=== PATIENT | female | born 1950 | race Hispanic/Latino ===

== ENCOUNTER 2018-01-07 11:06 | Inpatient (IN) | payer MEDICARE ==
--- NOTE | 2018-01-07 12:16 | C.PDOC ---
History Of Present Illness 67yo female, history of dementia,non-compliant with medications, is brought to ER under state legal guardian, reported she was living in "deplorable" condition. State guardian brought patient in to Er for admission for social evaluation. Otherwise, patient offers no medical complaints. Time Seen by Provider: 01/07/18 11:42 Chief Complaint (Nursing): Medical Clearance History Per: Other (legal state guardian) History/Exam Limitations: no limitations Past Medical History Reviewed: Historical Data, Nursing Documentation, Vital Signs Vital Signs: Last Vital Signs Temp 98.9 F 01/07/18 16:46 Pulse 87 01/07/18 16:46 Resp 16 01/07/18 16:46 BP 100/66 01/07/18 16:46 Pulse Ox 99 01/07/18 16:46 - Medical History PMH: Dementia, Hypercholesterolemia Surgical History: No Surg Hx Family History: States: No Known Family Hx - Social History Hx Alcohol Use: No Hx Substance Use: No - Immunization History Hx Tetanus Toxoid Vaccination: (Unobtainable) Hx Influenza Vaccination: (Unobtainable) Hx Pneumococcal Vaccination: (Unobtainable) Review Of Systems Except As Marked, All Systems Reviewed And Found Negative. Constitutional: Negative for: Fever, Chills Cardiovascular: Negative for: Chest Pain Respiratory: Negative for: Shortness of Breath Gastrointestinal: Negative for: Abdominal Pain Musculoskeletal: Negative for: Back Pain Neurological: Negative for: Headache Physical Exam - Physical Exam Appears: Non-toxic Skin: Normal Color, Warm, Dry Head: Atraumatic, Normacephalic Eye(s): bilateral: Normal Inspection Neck: Normal ROM, Supple Chest: Symmetrical Cardiovascular: Rhythm Regular Respiratory: Normal Breath Sounds Gastrointestinal/Abdominal: Normal Exam, Soft, No Tenderness Back: Normal Inspection Extremity: Normal ROM, No Pedal Edema, No Deformity Neurological/Psych: Oriented x3, Normal Speech, Normal Cognition, Normal Motor, Normal Sensation, Other (appropriate response to questions) ED Course And Treatment - Laboratory Results Result Diagrams: 01/07/18 13:13 01/07/18 13:13 ECG: Interpreted By Me, Viewed By Me ECG Rhythm: Sinus Rhythm Rate From EC (BPM) O2 Sat by Pulse Oximetry: 97 (RA) Pulse Ox Interpretation: Normal Progress Note: CT Head, Labs, CXR, and UA ordered. Patient given Tylenol 975mg PO. Medical Decision Making Medical Decision Making: sent to er accompaneid by social services director, for admission. low grade temp noted. cxr neg, head ct neg, ua, neg, labs neg. accepted to med surg by dr mcmanus Disposition - Disposition Disposition: HOSPITALIZED Disposition Time: 05:00 Condition: STABLE - Clinical Impression Clinical Impression: Failure to thrive, Unsatisfactory living conditions - Scribe Statement The provider has reviewed the documentation as recorded by the Samira Thompson Provider Attestation: All medical record entries made by the Samira were at my direction and personally dictated by me. I have reviewed the chart and agree that the record accurately reflects my personal performance of the history, physical exam, medical decision making, and the department course for this patient. I have also personally directed, reviewed, and agree with the discharge instructions and disposition.
--- NOTE | 2018-01-07 12:55 | CT ---
Date of service: 01/07/2018 PROCEDURE: CT HEAD WITHOUT CONTRAST. HISTORY: trauma COMPARISON: None available. TECHNIQUE: Axial computed tomography images were obtained through the head/brain without intravenous contrast. Radiation dose: Total exam DLP = 848.05 mGy-cm. This CT exam was performed using one or more of the following dose reduction techniques: Automated exposure control, adjustment of the mA and/or kV according to patient size, and/or use of iterative reconstruction technique. FINDINGS: HEMORRHAGE: No intracranial hemorrhage. BRAIN: No mass effect or edema. Mild atrophy is noted. VENTRICLES: Unremarkable. No hydrocephalus. CALVARIUM: Unremarkable. PARANASAL SINUSES: Unremarkable as visualized. No significant inflammatory changes. MASTOID AIR CELLS: Unremarkable as visualized. No inflammatory changes. OTHER FINDINGS: None. IMPRESSION: No evidence of acute intracranial hemorrhage intracranial collection mass effect or midline shift.
[2018-01-07 13:22] LABS: BASO % 0.4 % (0.0-2.0); EOS # 0.1 K/uL (0.0-0.7); EOS % 0.5 % (0.0-4.0); HEMOGLOBIN 13.1 g/dL (11.0-16.0); LYMPH # 2.2 K/uL (1.0-4.3); LYMPH % 19.7 % (20.0-40.0); MEAN CELL VOLUME 90.8 fL (81.0-99.0); MEAN CORPUSCULAR HEMOGLOBIN 31.3 pg (27.0-31.0); MEAN CORPUSCULAR HGB CONC 34.4 g/dL (33.0-37.0); MEAN PLATELET VOLUME 9.2 fL (7.2-11.7); MONO # 0.8 K/uL (0.0-0.8); MONO % 7.7 % (0.0-10.0); NEUT # 7.8 K/uL (1.8-7.0); NEUT % 71.7 % (50.0-75.0); RBC 4.2 Mil/uL (3.80-5.20); RED CELL DISTRIBUTION WIDTH 14.8 % (11.5-14.5); WHITE BLOOD COUNT 10.9 K/uL (4.8-10.8)
[2018-01-07 13:30] LABS: PROTHROMBIN TIME 21.4 SECONDS (9.7-12.2)
[2018-01-07 13:39] LABS: ALB/GLOB RATIO 1.4 (1.0-2.1); ALBUMIN 4.9 g/dL (3.5-5.0); ALT/SGPT 27 U/L (9-52); AST/SGOT 38 U/L (14-36); BLOOD UREA NITROGEN 15 mg/dL (7-17); CALCIUM 9.9 mg/dl (8.6-10.4); GFR AFRICAN-AMERICAN > 60; GFR NON-AFRICAN AMERICAN > 60
--- NOTE | 2018-01-07 14:37 | CP.PCM.HP ---
<London Henley - Last Filed: 01/07/18 17:44> History of Present Illness - History of Present Illness History of Present Illness: PGY-2 H&P for Hospitalist Service CC: Failure to thrive/Unsafe living conditions HPI: Patient is a 67 yo female, with PMHx of dementia, depression/anxiety, hypercholesterolemia, and DVT (listed on chart by PMD who presents to ED for social admission. Patient was brought to [facility] ED by state legal guardian. Slab Inspector/Legal Guardian at bedside, Femi Martinez, and offers further history. Patient found oriented x 3 (though unsure of today's date), and aware of context of admission. Guardian reports patient was living in "deplorable condition" - surrounded by animal feces/garbage. Patient was also only receiving nutrition via Meals on Wheels program once daily. Patient offers no medical complaints only stating "she is hungry." When questioned about dried blood on forehead patient states "she hit her head on the refrigerator two weeks ago." Patient denies syncope, falls at home. She uses rolling walker at home to ambulate. Denies chest pain, SOB, palpitations, abd pain, N/V/D/C, headache. Due to patient mental status review of medical records and patient PMD, Dr. Niño, aided in history gathering. Waiting for confirmatory documentation from Dr. Niño and [facility]. PMHx: Dementia, depression/anxiety, hypercholesterolemia, and ?DVT (~2014, pt denies sequelae) PSHx: Denies Allergies: NKA SHx: Denies alcohol use, smoking history, or illicit drug use Fam Hx: Mother: Heart Disease - at 87, Father: Heart Disease, HTN - [facility] ([phone]) Xarelto 15mg PO BID Paroxetine 20mg PO Qam Multi-vitamin Furosemide 20mg PO Daily Vit C 500mg PO Daily Vit D3 once daily FeoSol 325mg PO Daily Lipitor 20mg QHS Protonix 40mg PO Daily Dr. Jernigan/[place] [phone] Present on Admission - Present on Admission Any Indicators Present on Admission: No History of DVT/PE: No History of Uncontrolled Diabetes: No Review of Systems - Review of Systems Systems not reviewed;Unavailable: Dementia (questionable, patient AAOx3 (unsure of date)) - Constitutional Constitutional: absent: Chills, Fever - EENT Eyes: absent: Change in Vision Ears: absent: Ear Pain Nose/Mouth/Throat: absent: Nasal Congestion, Nasal Discharge Additional comments: Wears glasses - Cardiovascular Cardiovascular: absent: Chest Pain, Dyspnea - Respiratory Respiratory: absent: Cough, Dyspnea - Gastrointestinal Gastrointestinal: absent: Abdominal Pain, Nausea, Vomiting - Genitourinary Genitourinary: absent: Dysuria, Urinary Incontinence - Musculoskeletal Musculoskeletal: absent: Back Pain, Numbness, Tingling - Integumentary Integumentary: New Lesions, Wounds - Neurological Neurological: absent: Tingling, Weakness - Psychiatric Psychiatric: Anxiety, Depression - Endocrine Endocrine: absent: Fatigue, Palpitations Past Patient History - Past Social History Smoking Status: Never Smoked - CARDIAC Hx Hypercholesterolemia: Yes - NEUROLOGICAL Hx Dementia: Yes - PSYCHIATRIC Hx Substance Use: No Meds Allergies/Adverse Reactions: Allergies Allergy/AdvReac Type Severity Reaction Status Date / Time No Known Allergies Allergy Verified 01/07/18 12:12 Physical Exam - Constitutional Appears: Non-toxic, No Acute Distress - Head Exam Head Exam: absent: ATRAUMATIC, NORMAL INSPECTION, NORMOCEPHALIC Additional comments: Pt admits dried blood on head from "hitting head" on refrigerator - Eye Exam Eye Exam: EOMI, Normal appearance. absent: Scleral icterus - ENT Exam ENT Exam: Mucous Membranes Dry - Neck Exam Neck exam: Negative for: Tenderness - Respiratory Exam Respiratory Exam: Clear to Auscultation Bilateral, NORMAL BREATHING PATTERN. absent: Rales, Rhonchi, Wheezes - Cardiovascular Exam Cardiovascular Exam: RRR, +S1, +S2 - GI/Abdominal Exam GI & Abdominal Exam: Normal Bowel Sounds, Soft. absent: Tenderness Additional comments: obese - Extremities Exam Extremities exam: Positive for: pedal edema, pedal pulses present. Negative for : normal inspection Additional comments: Severe hallux valgus deformity - Back Exam Back exam: absent: CVA tenderness (L), CVA tenderness (R) - Neurological Exam Neurological exam: Alert, CN II-XII Intact, Oriented x3 (pt unaware of date, but aware of month/year- aware of context of admission), Reflexes Normal Additional comments: light touch intact throughout severe hallux valgus deformity of bilateral feet leg length discrepancy - left leg longer than right (pt wears special heel lifts ) - Psychiatric Exam Psychiatric exam: Normal Affect, Normal Mood - Skin Skin Exam: Normal Color, Warm Results - Vital Signs Recent Vital Signs: Last Vital Signs Temp 99.9 F H 01/07/18 11:35 Pulse 88 01/07/18 11:35 Resp 18 01/07/18 11:35 BP 116/78 01/07/18 11:35 Pulse Ox 97 01/07/18 12:18 - Labs Result Diagrams: 01/07/18 13:13 01/07/18 13:13 Labs: Laboratory Results - last 24 hr 01/07/18 01/07/18 01/07/18 11:35 13:13 13:13 WBC 10.9 H RBC 4.20 Hgb 13.1 Hct 38.1 MCV 90.8 MCH 31.3 H MCHC 34.4 RDW 14.8 H Plt Count 299 MPV 9.2 Neut % (Auto) 71.7 Lymph % (Auto) 19.7 L Jones % (Auto) 7.7 Eos % (Auto) 0.5 Baso % (Auto) 0.4 Neut # (Auto) 7.8 H Lymph # (Auto) 2.2 Jones # (Auto) 0.8 Eos # (Auto) 0.1 Baso # (Auto) 0.0 PT 21.4 H INR 2.0 APTT 39 H Sodium Potassium Chloride Carbon Dioxide Anion Gap BUN Creatinine Est GFR ( Amer) Est GFR (Non-Af Amer) POC Glucose (mg/dL) 107 Random Glucose Calcium Total Bilirubin AST ALT Alkaline Phosphatase Troponin I Total Protein Albumin Globulin Albumin/Globulin Ratio 01/07/18 13:13 WBC RBC Hgb Hct MCV MCH MCHC RDW Plt Count MPV Neut % (Auto) Lymph % (Auto) Jones % (Auto) Eos % (Auto) Baso % (Auto) Neut # (Auto) Lymph # (Auto) Jones # (Auto) Eos # (Auto) Baso # (Auto) PT INR APTT Sodium 143 Potassium 3.6 Chloride 102 Carbon Dioxide 27 Anion Gap 18 BUN 15 Creatinine 0.6 L Est GFR ( Amer) > 60 Est GFR (Non-Af Amer) > 60 POC Glucose (mg/dL) Random Glucose 100 Calcium 9.9 Total Bilirubin 1.1 AST 38 H ALT 27 Alkaline Phosphatase 97 Troponin I < 0.0120 Total Protein 8.4 H Albumin 4.9 Globulin 3.5 Albumin/Globulin Ratio 1.4 Assessment & Plan - Assessment and Plan (Free Text) Plan: Social Issues/Failure to thrive/Self neglect Observe on med/surg Brought in by legal guardian for detention eval Case Management/SW referral for placement PT/OT eval Fall risk precaution Dr Figueroa, Psych consult - help appreciated - f/u reccs Dementia Pt found oriented x 3, aware of context of admission CT Head (01/07/18): No acute intracranial pathologies CXR (01/07/18): NAD UA (01/07/18): WNL, No leuk esterase/nitrites; 3-5 Hyaline Casts EKG (01/07/18): NSR @ 72 bpm, Normal axis, No acute ST/T wave changes Troponin negative x 1 Perineal Fungal infection Nystatin topical powder BID x 14 days (January 07-) Dehydration Dry nasal/mucosal membranes Hyaline Casts in UA BUN not elevated 1 liter of LR @ 100cc/hr Hypercholesterolemia Pt taking Lipitor 20mg PO HS at home - Substitute Crestor 10mg PO HS (Lipitor Non-formulary) f/u lipid panel, A1C Hx DVT Record request sent to [facility] [place] (pt admission in 2014 or 2015 - pt unsure) Restart home Xarelto 15mg PO BID f/u venous doppler Hx of Afib Listed on PMD chart Not in Afib on EKG at admission Restart home Xarelto 15mg PO BID Chronic CHF (unknown type) Documented by Patient PMD, Dr. Niño Not on BB/JUSTEN as home med f/u ECHO R/o Rhabdomyolosis CPK WNL LR @ 100cc/hr for 1 Liter Elevated AST Slight AST elevation at admission Monitor Anxiety/Depression Ativan 2mg IV once in ED Ativan 1mg IV Q6H PRN for agitation Restart home Paxil 20mg PO Daily Dr Figueroa, Psych consult - help appreciated - f/u reccs Hallux Valgus/Gait dysfunction Pt wearing orthotic shoes with heel lifts PT/OT - uses walker at home Fall risk precaution Elevated INR INR 2.0 on admission f/u repeat PT/INR in AM Hx of anemia Continue home Feosol 325mg PO Daily at home Hgb 13.1 on admission HTN Listed on PMD chart, though pt not on antihypertensive at home If elevated will consider starting antihypertensive based off ECHO, overnight vitals Monitor BP overnight Type Two Diabetes Mellitus Listed on PMD chart, Dr. Niño Pt on no diabetes medications at home GREG Hypoglycemia protocol Accuchecks ACHS f/u A1C DM neuropathy Monitor at this time Vitamin D Deficiency Pt on home Vit D3 1000units daily f/u Vit D level Prophylaxis Protonix 40mg PO Daily Heart healthy diet SCDs C/I due to history of DVT- will be added if Venous Dopplers negative PT/OT eval SW/Case Management consulted for long-term placement Palliative Care consult, Oralia Pt state appointed legal guardian - Femi Martinze Phone number: [phone] Pt may not sign out AMA per conversation London Henley PGY-2 <Chase Young - Last Filed: 01/07/18 19:24> Results - Vital Signs Recent Vital Signs: Last Vital Signs Temp 98.3 F 01/07/18 17:49 Pulse 76 01/07/18 17:49 Resp 20 01/07/18 17:49 BP 119/73 01/07/18 17:49 Pulse Ox 99 01/07/18 17:49 - Labs Result Diagrams: 01/07/18 13:13 01/07/18 13:13 Labs: Laboratory Results - last 24 hr 01/07/18 01/07/18 01/07/18 11:35 13:13 13:13 WBC 10.9 H RBC 4.20 Hgb 13.1 Hct 38.1 MCV 90.8 MCH 31.3 H MCHC 34.4 RDW 14.8 H Plt Count 299 MPV 9.2 Neut % (Auto) 71.7 Lymph % (Auto) 19.7 L Jones % (Auto) 7.7 Eos % (Auto) 0.5 Baso % (Auto) 0.4 Neut # (Auto) 7.8 H Lymph # (Auto) 2.2 Jones # (Auto) 0.8 Eos # (Auto) 0.1 Baso # (Auto) 0.0 PT 21.4 H INR 2.0 APTT 39 H Sodium Potassium Chloride Carbon Dioxide Anion Gap BUN Creatinine Est GFR ( Amer) Est GFR (Non-Af Amer) POC Glucose (mg/dL) 107 Random Glucose Calcium Total Bilirubin AST ALT Alkaline Phosphatase Total Creatine Kinase Troponin I Total Protein Albumin Globulin Albumin/Globulin Ratio Urine Color Urine Clarity Urine pH Ur Specific Winder Urine Protein Urine Glucose (UA) Urine Ketones Urine Blood Urine Nitrate Urine Bilirubin Urine Urobilinogen Ur Leukocyte Esterase Urine WBC (Auto) Urine RBC (Auto) Ur Squamous Epith Cells Urine Bacteria Hyaline Casts 01/07/18 01/07/18 01/07/18 13:13 16:05 16:36 WBC RBC Hgb Hct MCV MCH MCHC RDW Plt Count MPV Neut % (Auto) Lymph % (Auto) Jones % (Auto) Eos % (Auto) Baso % (Auto) Neut # (Auto) Lymph # (Auto) Jones # (Auto) Eos # (Auto) Baso # (Auto) PT INR APTT Sodium 143 Potassium 3.6 Chloride 102 Carbon Dioxide 27 Anion Gap 18 BUN 15 Creatinine 0.6 L Est GFR ( Amer) > 60 Est GFR (Non-Af Amer) > 60 POC Glucose (mg/dL) Random Glucose 100 Calcium 9.9 Total Bilirubin 1.1 AST 38 H ALT 27 Alkaline Phosphatase 97 Total Creatine Kinase 57 Troponin I < 0.0120 Total Protein 8.4 H Albumin 4.9 Globulin 3.5 Albumin/Globulin Ratio 1.4 Urine Color Yellow Urine Clarity Hazy Urine pH 5.0 Ur Specific Winder 1.010 Urine Protein Negative Urine Glucose (UA) Normal Urine Ketones Negative Urine Blood Negative Urine Nitrate Negative Urine Bilirubin Negative Urine Urobilinogen Normal Ur Leukocyte Esterase Neg Urine WBC (Auto) < 1 Urine RBC (Auto) < 1 Ur Squamous Epith Cells < 1 Urine Bacteria Rare Hyaline Casts 3-5 H 01/07/18 18:06 WBC RBC Hgb Hct MCV MCH MCHC RDW Plt Count MPV Neut % (Auto) Lymph % (Auto) Jones % (Auto) Eos % (Auto) Baso % (Auto) Neut # (Auto) Lymph # (Auto) Jones # (Auto) Eos # (Auto) Baso # (Auto) PT INR APTT Sodium Potassium Chloride Carbon Dioxide Anion Gap BUN Creatinine Est GFR ( Amer) Est GFR (Non-Af Amer) POC Glucose (mg/dL) 83 Random Glucose Calcium Total Bilirubin AST ALT Alkaline Phosphatase Total Creatine Kinase Troponin I Total Protein Albumin Globulin Albumin/Globulin Ratio Urine Color Urine Clarity Urine pH Ur Specific Winder Urine Protein Urine Glucose (UA) Urine Ketones Urine Blood Urine Nitrate Urine Bilirubin Urine Urobilinogen Ur Leukocyte Esterase Urine WBC (Auto) Urine RBC (Auto) Ur Squamous Epith Cells Urine Bacteria Hyaline Casts Attending/Attestation - Attestation I have personally seen and examined this patient.: Yes I have fully participated in the care of the patient.: Yes I have reviewed all pertinent clinical information: Yes Notes (Text): 01/07/18 19:23 Patient was seen and examined with Resident Dr. Henley. History, Physical, Assessment and Plan were gone over with Dr. Henley. Chase Young D.O.
--- NOTE | 2018-01-07 15:18 | RAD ---
Date of service: 01/07/2018 PROCEDURE: CHEST RADIOGRAPH, 1 VIEW HISTORY: chest pain COMPARISON: None available. FINDINGS: LUNGS: Clear. PLEURA: No pneumothorax or pleural fluid seen. CARDIOVASCULAR: No radiographic findings to suggest acute or significant cardiovascular disease. OSSEOUS STRUCTURES: No significant abnormalities. VISUALIZED UPPER ABDOMEN: Normal. OTHER FINDINGS: None. IMPRESSION: No active disease.
[2018-01-07 16:19] LABS: SQUAMOUS EPITHIAL < 1 /hpf (0-5); URINE BACTERIA RARE (<OCC); URINE BILIRUBIN NEGATIVE (NEGATIVE); URINE BLOOD NEGATIVE (NEGATIVE); URINE CLARITY Hazy (Clear); URINE COLOR Yellow (YELLOW); URINE GLUCOSE (UA) NORMAL (Normal); URINE LEUKOCYTE ESTERASE NEG Leu/uL (Negative); URINE PROTEIN NEGATIVE (NEGATIVE); URINE UROBILINOGEN NORMAL mg/dL (0.2-1.0)
[2018-01-07] MEDS ORDERED: Lactated Ringer's 1,000 ML IV SCH (16:30)
[2018-01-07] MEDS ORDERED: Dextrose 50% SYRINGE Inj (50 ml) IV PRN (17:21)
[2018-01-07] MEDS ORDERED: Glucagon Recombinant 1 mg Inj IM PRN (17:21)
[2018-01-07 17:51] VITALS: RESP 20
[2018-01-07] MEDS: (Novolin R) Insulin Human Regular 100 units/ml vial SC SCH (21:44)
[2018-01-08] MEDS: (Novolin R) Insulin Human Regular 100 units/ml vial SC SCH ×4 (08:10→21:59)
[2018-01-08 09:04] LABS: ALB/GLOB RATIO 1.4 (1.0-2.1); ALBUMIN 4.3 g/dL (3.5-5.0); ALT/SGPT 23 U/L (9-52); AST/SGOT 33 U/L (14-36); BLOOD UREA NITROGEN 16 mg/dL (7-17); CALCIUM 9.1 mg/dl (8.6-10.4); GFR AFRICAN-AMERICAN > 60; GFR NON-AFRICAN AMERICAN > 60; HDL CHOLESTEROL 61 mg/dL (30-70)
[2018-01-08 09:14] LABS: LDL CHOLESTEROL 123 mg/dL (0-129)
[2018-01-08 09:15] LABS: BASO # 0.1 K/uL (0.0-0.2); BASO % 0.9 % (0.0-2.0); EOS # 0.1 K/uL (0.0-0.7); EOS % 1.4 % (0.0-4.0); HEMOGLOBIN 12.9 g/dL (11.0-16.0); LYMPH # 2.1 K/uL (1.0-4.3); LYMPH % 21.2 % (20.0-40.0); MEAN CELL VOLUME 91.7 fL (81.0-99.0); MEAN CORPUSCULAR HEMOGLOBIN 31.2 pg (27.0-31.0); MEAN PLATELET VOLUME 9.4 fL (7.2-11.7); MONO # 0.6 K/uL (0.0-0.8); MONO % 5.8 % (0.0-10.0); NEUT # 7.2 K/uL (1.8-7.0); NEUT % 70.7 % (50.0-75.0); RBC 4.14 Mil/uL (3.80-5.20); RED CELL DISTRIBUTION WIDTH 14.6 % (11.5-14.5); WHITE BLOOD COUNT 10.1 K/uL (4.8-10.8)
[2018-01-08 10:30] LABS: INR 1.6; PROTHROMBIN TIME 17.8 SECONDS (9.7-12.2)
[2018-01-08] MEDS: Pantoprazole 40 mg EC Tab PO SCH (10:47)
[2018-01-08] MEDS: Multiple Vitamins Tab PO SCH (10:47)
--- NOTE | 2018-01-08 11:07 | CP.PCM.PN ---
<Fani Florian P - Last Filed: 01/08/18 11:06> Subjective - Date & Time of Evaluation Date of Evaluation: 01/08/18 Time of Evaluation: 11:06 Objective - Vital Signs/Intake and Output Vital Signs (last 24 hours): Temp Pulse Resp BP Pulse Ox 98.2 F 80 20 115/75 99 01/08/18 07:24 01/08/18 07:24 01/08/18 07:24 01/08/18 07:24 01/08/18 07:24 - Medications Medications: Current Medications Dextrose (Dextrose 50% Inj) 0 ml IV STAT PRN; Protocol PRN Reason: Hypoglycemia Protocol Dextrose (Glutose 15) 0 gm PO ONCE PRN; Protocol PRN Reason: Hypoglycemia Protocol Ferrous Sulfate (Feosol) 325 mg PO DAILY [facility] Last Admin: 01/08/18 10:47 Dose: 325 mg Glucagon (Glucagen Diagnostic Kit) 0 mg IM STAT PRN; Protocol PRN Reason: Hypoglycemia Protocol Dextrose (Dextrose 5% In Water 1000 Ml) 1,000 mls @ 0 mls/hr IV .Q0M PRN; Protocol; Per Protocol PRN Reason: Hypoglycemia Protocol Insulin Human Regular (Novolin R) 0 unit SC ACHS [facility] PRN Reason: Protocol Last Admin: 01/08/18 08:10 Dose: Not Given Lorazepam (Ativan) 1 mg IVP Q6H PRN PRN Reason: Agitation Multivitamins (Hexavitamin) 1 tab PO DAILY [facility] Last Admin: 01/08/18 10:47 Dose: 1 tab Nystatin (Nystop Topical Powder) 1 applic TOP BID [facility] Stop: 01/21/18 18:01 Last Admin: 01/08/18 10:50 Dose: 1 applic Pantoprazole Sodium (Protonix Ec Tab) 40 mg PO DAILY [facility] Last Admin: 01/08/18 10:47 Dose: 40 mg Paroxetine HCl (Paxil) 20 mg PO DAILY [facility] Last Admin: 01/08/18 10:47 Dose: 20 mg Pneumococcal Polyvalent Vaccine (Pneumovax 23 Vaccine) 0.5 ml IM .ONCE ONE Stop: 01/10/18 22:01 Rivaroxaban (Xarelto) 15 mg PO BID [facility] Last Admin: 01/08/18 10:47 Dose: 15 mg Rosuvastatin Calcium (Crestor) 10 mg PO HS [facility] Last Admin: 01/07/18 21:43 Dose: 10 mg - Labs Labs: 01/08/18 09:10 01/08/18 08:41 PT 17.8 SECONDS (9.7-12.2) H 01/08/18 10:31 INR 1.6 01/08/18 10:31 APTT 35 SECONDS (21-34) H 01/08/18 10:31 <Chase Young - Last Filed: 01/08/18 19:44> Subjective - Date & Time of Evaluation Time of Evaluation: 14:30 - Subjective Subjective: Hospitalist Progress Note Patient was seen and examined at 2:30 PM. Patient is a 67 year old female who was brought into the hospital on 01/07/18 by her [facility] appointed Guardian Femi Martinez ([phone]) after she was found to be living in poor conditions at home (please see full details in HPI of admitting H&P). [facility] Drum Filler Lavinia and Social Workers Carlos Enrique and Arti are in contact with Guardian Femi Martinez whose office is working on obtaining Medicaid for patient and once obtained will decide jail placement for patient. Upon FULL ROS Patient very concerned about her current situation and at time crying as she would like to return to home and wonders why the office of El[employer] can not just hire someone to clean her house and yard so that she can return home. She is also very concerned about her 3 cats, which I confirmed with Ms. Martinez on 01/07/18 at the time of admission, someone was caring for. NO chest pain NO palpitations NO SOB/cough NO dysphagia/odynophagia NO abdominal pain NO n/v/d/c: NO black or bloody stools NO burning/pain with urination NO headache NO lightheadedness/dizziness NO new changes in vision NO new changes in hearing NO paresthesias Physical Exam - Constitutional Appears: Non-toxic, No Acute Distress - Head Exam Head Exam: absent: ATRAUMATIC, NORMAL INSPECTION, NORMOCEPHALIC - Eye Exam Eye Exam: EOMI, Normal appearance. absent: Scleral icterus - ENT Exam ENT Exam: Mucous Membranes Moist - Neck Exam Neck exam: Negative for: Tenderness, Lymphadenopathy - Respiratory Exam Respiratory Exam: Clear to Auscultation Bilateral, NORMAL BREATHING PATTERN. absent: Rales, Rhonchi, Wheezes - Cardiovascular Exam Cardiovascular Exam: RRR, +S1, +S2 - GI/Abdominal Exam GI & Abdominal Exam: Normal Bowel Sounds, Soft. absent: Tenderness Additional comments: Central Obesity - Extremities Exam Extremities exam: Positive for: pedal edema, pedal pulses present. Negative for : normal inspection Additional comments: Severe hallux valgus deformity bilateral feet, Left Leg Longer than the Right Leg (patient has a history of heel lifts in her shoes) - Back Exam Back exam: absent: CVA tenderness (L), CVA tenderness (R) - Neurological Exam Neurological exam: Alert, CN II-XII Intact, Oriented x3 (patient unaware of date , but aware of month and the year and the president; she is also aware of context of why she is here), Reflexes Normal - Psychiatric Exam Psychiatric exam: Normal Affect but very teary throughout exam - Skin Skin Exam: Normal Color, Warm. Fungal Rash noted in the perineum at the time of admission on 01/07/18 Assessment and Plan: 1). Self Neglect [facility] Drum Filler Lavinia and Social Workers Carlos Enrique and Arti are in contact with Guardian Femi Yepezdeonna ([phone]) whose office is working on obtaining Medicaid for patient and once obtained will decide buttermaker helper placement for patient. 2). Possible Dementia NOT currently on any medications 3). Perineal Fungal Rash As noted on exam at the time of admission 01/07/18 Nystatin Powder BID through 01/21/18 4). Dehydration Oral mucosa and nasal turbinates are now moist after LR x 1 liter Bun/Cr are normal 5). Hx HLD Crestor 10 mg PO HS 6). Hx DVT Unspecified laterality Venous Duplex of Bilateral LE shows NO evidence of DVT 7). Hx Atrial Fibrillation NSR upon admitting EKG Xarelto 15 mg PO BID F/U 2D Echocardiogram 8). Questionable Hx of HF F/U 2D Echocardiogram 9). R/O Rhabdomyolysis CK is normal Patient given 1 liter of LR upon admission 10). Elevated AST This has now normalized 11). Hx Anxiety/Depression Ativan 1 mg IV Q6H PRN Paroxetine 20 mg PO 1x/day 12). Hallux Valgus Bilateral Feet/Gait Dysfunction Uses can at home and heel lift in Right shoe F/U PT/OT 13). Elevated INR on admission This is now normal 14). Hx Anemia likely Secondary to Iron Deficiency Ferrous Sulfate 325 mg PO 1x/day Hgb/Hct are now normal 15). Hx HTN Controlled on NO medications 16). Hx DM 2 Currently on NO medications HgBA1C is 5.5 RISS ACHS 17). Hx Diabetic Neuropathy This is questionable as well: currently no medications and patient does not complain of any paresthesias 18). Hx Vitamin D Deficiency Not on any medication Vitamin D level is 31.3 19). Prophylaxis SCDs Patient is on Xarelto PT/OT Heart Healthy 2 gm Na Low Carb Diet Disposition: needs Medicaid set up by the Office of Public Guardian and then buttermaker helper placement. Please note that at the time of admission 01/07/18, office of primary care physician Dr. Niño and Dr. Niño herself were contacted to obtain history on this patient. Unfortunately the office nor Dr. Niño could provide any more information than what we have documented in the H&P on 01/07/18. Chase Young D.O. Objective - Vital Signs/Intake and Output Vital Signs (last 24 hours): Temp Pulse Resp BP Pulse Ox 98.5 F 82 20 100/55 L 95 01/08/18 16:00 01/08/18 16:00 01/08/18 16:00 01/08/18 16:00 01/08/18 16:00 Intake and Output: 01/08/18 01/09/18 18:59 06:59 Intake Total 500 Balance 500 - Medications Medications: Current Medications Dextrose (Dextrose 50% Inj) 0 ml IV STAT PRN; Protocol PRN Reason: Hypoglycemia Protocol Dextrose (Glutose 15) 0 gm PO ONCE PRN; Protocol PRN Reason: Hypoglycemia Protocol Ferrous Sulfate (Feosol) 325 mg PO DAILY [facility] Last Admin: 01/08/18 10:47 Dose: 325 mg Glucagon (Glucagen Diagnostic Kit) 0 mg IM STAT PRN; Protocol PRN Reason: Hypoglycemia Protocol Dextrose (Dextrose 5% In Water 1000 Ml) 1,000 mls @ 0 mls/hr IV .Q0M PRN; Protocol; Per Protocol PRN Reason: Hypoglycemia Protocol Insulin Human Regular (Novolin R) 0 unit SC ACHS [facility] PRN Reason: Protocol Last Admin: 01/08/18 17:44 Dose: Not Given Lorazepam (Ativan) 1 mg IVP Q6H PRN PRN Reason: Agitation Multivitamins (Hexavitamin) 1 tab PO DAILY [facility] Last Admin: 01/08/18 10:47 Dose: 1 tab Nystatin (Nystop Topical Powder) 1 applic TOP BID [facility] Stop: 01/21/18 18:01 Last Admin: 01/08/18 17:47 Dose: 1 applic Pantoprazole Sodium (Protonix Ec Tab) 40 mg PO DAILY [facility] Last Admin: 01/08/18 10:47 Dose: 40 mg Paroxetine HCl (Paxil) 20 mg PO DAILY [facility] Last Admin: 01/08/18 10:47 Dose: 20 mg Pneumococcal Polyvalent Vaccine (Pneumovax 23 Vaccine) 0.5 ml IM .ONCE ONE Stop: 01/10/18 22:01 Rivaroxaban (Xarelto) 15 mg PO BID [facility] Last Admin: 01/08/18 17:46 Dose: 15 mg Rosuvastatin Calcium (Crestor) 10 mg PO HS [facility] Last Admin: 01/07/18 21:43 Dose: 10 mg - Labs Labs: 01/08/18 09:10 01/08/18 08:41 PT 17.8 SECONDS (9.7-12.2) H 01/08/18 10:31 INR 1.6 01/08/18 10:31 APTT 35 SECONDS (21-34) H 01/08/18 10:31
--- NOTE | 2018-01-08 11:38 | PCM.PSYCH ---
Initial Psychiatric Evaluation - Initial Psychiatric Evaluation Type of Admission: Voluntary Legal Status: Capacity Chief Complaint (in patient's own words): I am donna History of Present Illness and Precipitating Events: Ms. Garcia is a 67-year-old woman presenting to the ED for evaluation. Nursing staff reported that patient was found in a disorganized state. She was at home covered in her animal feces with dried blood on her forehead that had been there for 2 weeks after she hit her head on the refrigerator, and the state of the house/lawn itself was in deplorable conditions. Patient was brought to hospital by a state guardian and pt does not know why she is here. She has a PMHx of DVT, stroke 2 years ago, dementia, hypercholestrolemia, high blood pressure, and noncompliant with medication. There is no history of alcohol or substance abuse. Patient MMSE was 26 (was not away it is the 13th and had a little trouble repeating objects back). Patient admits to depression. She said she suffers from panic attacks, the last one occurring yesterday. In speaking with the patient about her living situation she because frustrated, angry and started cursing. She has not had any seizures, no suicidal thoughts, no homicidal thoughts, no hallucinations. She said her mood is okay and her memory is okay. Patient was able to give a detailed work history. Patient did not want to move to the psychiatric unit and she said she wanted to go home. Patient denies syncope, falls at home. She uses rolling walker at home to ambulate. Denies chest pain, SOB, palpitations, abd pain, N/V/ D/C, headache. Current Medications: Active Medications Generic Name Dose Route Start Last Admin Trade Name Nikkoq PRN Reason Stop Dose Admin Dextrose 0 ml 01/07/18 17:21 Dextrose 50% Inj IV STAT PRN Hypoglycemia Protocol Protocol Dextrose 0 gm 01/07/18 17:21 Glutose 15 PO ONCE PRN Hypoglycemia Protocol Protocol Ferrous Sulfate 325 mg 01/08/18 10:00 01/08/18 10:47 Feosol PO 325 mg DAILY [facility] Administration Glucagon 0 mg 01/07/18 17:21 Glucagen Diagnostic Kit IM STAT PRN Hypoglycemia Protocol Protocol Dextrose 1,000 mls @ 0 mls/hr 01/07/18 17:21 Dextrose 5% In Water 1000 Ml IV .Q0M PRN Hypoglycemia Protocol Protocol Per Protocol Insulin Human Regular 0 unit 01/07/18 22:00 01/08/18 08:10 Novolin R SC Not Given ACHS [facility] Protocol Lorazepam 1 mg 01/07/18 17:14 Ativan IVP Q6H PRN Agitation Multivitamins 1 tab 01/08/18 10:00 01/08/18 10:47 Hexavitamin PO 1 tab DAILY [facility] Administration Nystatin 1 applic 01/07/18 18:00 01/08/18 10:50 Nystop Topical Powder TOP 01/21/18 18:01 1 applic BID [facility] Administration Pantoprazole Sodium 40 mg 01/08/18 10:00 01/08/18 10:47 Protonix Ec Tab PO 40 mg DAILY [facility] Administration Paroxetine HCl 20 mg 01/08/18 10:00 01/08/18 10:47 Paxil PO 20 mg DAILY [facility] Administration Pneumococcal Polyvalent Vaccine 0.5 ml 01/10/18 22:00 Pneumovax 23 Vaccine IM 01/10/18 22:01 .ONCE ONE Rivaroxaban 15 mg 01/07/18 18:00 01/08/18 10:47 Xarelto PO 15 mg BID [facility] Administration Rosuvastatin Calcium 10 mg 01/07/18 22:00 01/07/18 21:43 Crestor PO 10 mg HS [facility] Administration Past Psychiatric History - Past Psychiatric History Previous Treatment History: None Pertinent Medical Hx (Current Medical&Sleep Prob, Allergies): Allergies Allergy/AdvReac Type Severity Reaction Status Date / Time No Known Allergies Allergy Verified 01/07/18 12:12 Unobtainable 01/07/18 Review of Systems - Review of Systems All systems: reviewed and no additional remarkable complaints except - Psychiatric Psychiatric: Anxiety, Irritability, Paranoia. absent: Suicidal Ideation Mental Status Examination - Personal Presentation Personal Presentation: Looks stated age - Affect Affect: Constricted, Depressed - Motor Activity Motor Activity: Psychomotor Agitation - Reliability in Providing Information Reliability in Providing Information: Poor, due to alteration in thoughts, Poor , due to cognitve impairment - Speech Speech: Disorganized, Tangential (kept bringing up meals on wheels) - Mood Mood: Anxious - Formal Thought Process Formal Thought Process: Delusions, Paranoia, Loosening of associations - Obsessions/Compulsions Obsessions: Yes (hoarding) Compulsions: None - Cognitive Functions Orientation: Person, Place Sensorium: Alert Attention/Concentration: Attentive Abstract Thinking: [place] Estimate of Intelligence: Average Judgement: Imparied, as evidence by: Poor judgement, Imparied, as evidence by: Lack of insight into illness Memory: Recent intact, as evidence by: 3/3 object recall, Recent impaired, as evidence by: Inability to recall events of the day, Remote intact, as evidenced by: Ability to recall historical events - Risk Risk: Falls, Diminished functioning - Limitations Limitations: Decreased memory, recent DSM 5 DX - DSM 5 DSM 5 Diagnosis: Alzheimer's dementia with behavioral disturbance R/O delirium - Recommended/Plan of Treatment Treatment Recommendations and Plan of Treatment: Alzheimer's dementia with behavioral disturbance R/O delirium Ativan prn monitor s/s - Smoking Cessation Smoking Cessation Initiated: No
--- NOTE | 2018-01-08 11:42 | CP.PCM.CON ---
History of Present Illness - History of Present Illness History of Present Illness: Palliative consult requested by Doctor Henley for goals of care discussion Patient is a 67 yo female admitted from home on the initiative of her legal guardian due to " deplorable condition in the hose. Patient is known to me from the Home visits I made to this patient for [facility] , under Doctor Salinas. At the time of visits I found patent in very poor hygiene in the house, with layers and layers of animal feces on the floor. The odor in the house was so strong making breathing almost impossible. Patient did not seem to be aware of condition as it was" normal to her". Due to concern about patient's well being I called APS and patient was assigned legal guardian. Patient is admitted for 911 emergency services dispatcher evaluation. PMH: Dementia, DM, HTN, Soc. Hx: single, never , denies family members, owns the house and has one tenant on first floor, tenants helps patient occasionally with groceries, patient receives " Meals on wheels", patient does not leave house at all, she uses WC and rolling walker at home , uses ortho shoes Patient has three cats. One dog few weeks ago, as per patient. Patient is not sure what happened to the body. She reports placing body in the plastic bag and giving it to her tenant. Fam Hx: denied by patient Review of Systems - Constitutional Constitutional: Weakness - EENT Eyes: absent: As Per HPI, Blind Spots, Blurred Vision, Change in Vision, Decreased Night Vision, Diplopia, Discharge, Dry Eye, Exophthalmos, Floaters, Irritation, Itchy Eyes, Loss of Peripheral Vision, Pain, Photophobia, Requires Corrective Lenses, Sees Flashes, Spots in Vision, Tunnel Vision, Other Visual Disturbances, Loss of Vision, Other Ears: absent: As Per HPI, Decreased Hearing, Ear Discharge, Ear Pain, Tinnitus, Abnormal Hearing, Disequilibrium, Dizziness, Other Nose/Mouth/Throat: absent: As Per HPI, Epistaxis, Nasal Congestion, Nasal Discharge, Nasal Obstruction, Nasal Trauma, Nose Pain, Post Nasal Drip, Sinus Pain, Sinus Pressure, Bleeding Gums, Change in Voice, Dental Pain, Dry Mouth, Dysphagia, Halitosis, Hoarsness, Lip Swelling, Mouth Lesions, Mouth Pain, Odynophagia, Sore Throat, Throat Swelling, Tongue Swelling, Facial Pain, Neck Pain, Neck Mass, Other - Breasts Breasts: absent: As Per HPI, Change in Shape, Mass, Pain, Nipple Discharge, Nipple Inversion, Skin Changes, Swelling, Other - Cardiovascular Cardiovascular: Pedal Edema - Respiratory Respiratory: absent: As Per HPI, Cough, Dyspnea, Hemoptysis, Dyspnea on Exertion , Wheezing, Snoring, Stridor, Pain on Inspiration, Chest Congestion, Excessive Mucous Production, Change in Mucous Color, Pain with Coughing, Other - Gastrointestinal Gastrointestinal: absent: As Per HPI, Abdominal Pain, Belching, Bloating, Change in Bowel Habits, Change in Stool Character, Coffee Ground Emesis, Constipation, Cramping, Diarrhea, Dyspepsia, Dysphagia, Early Satiety, Excessive Flatus, Fecal Incontinence, Heartburn, Hematemesis, Hematochezia, Loose Stools, Melena, Nausea, Odynophagia, Temesmus, Vomiting, Other - Genitourinary Genitourinary: absent: As Per HPI, Change in Urinary Stream, Difficulty Urinating, Dysuria, Flank Pain, Hematuria, Pyuria, Nocturia, Urinary Incontinence, Urinary Frequency, Urinary Hesitance, Urinary Urgency, Voiding Freq/Small Amts, Freq UTI, Hx Renal/Bladder Calculi, Hx /Renal Surgery, Bladder Distension, Other - Reproductive: Female Reproductive:Female: Post Menopausal - Menstruation Menstruation: Post Menopausal - Musculoskeletal Musculoskeletal: Deformity, Limited Range of Motion, Loss of Height - Integumentary Integumentary: Unusual Bruising - Neurological Neurological: Abnormal Gait, Behavioral Changes - Psychiatric Psychiatric: Anxiety, Mood Swings - Endocrine Endocrine: absent: As Per HPI, Change in Body Appearance, Change in Libido, Cold Intolorance, Deepening of Voice, Excessive Sweating, Fatigue, Flushing, Heat Intolorance, Increase in Ring/Shoe/Hat Size, Palpitations, Polydipsia, Polyphagia, Polyuria, Other - Hematologic/Lymphatic Hematologic: Easy Bleeding Past Patient History - Past Medical History & Family History Past Medical History?: Yes - Past Social History Smoking Status: Never Smoked - CARDIAC Hx Hypercholesterolemia: Yes - NEUROLOGICAL Hx Dementia: Yes - MUSCULOSKELETAL/RHEUMATOLOGICAL Hx Falls: Yes - PSYCHIATRIC Hx Substance Use: No - ANESTHESIA Hx Anesthesia: No Meds Allergies/Adverse Reactions: Allergies Allergy/AdvReac Type Severity Reaction Status Date / Time No Known Allergies Allergy Verified 01/07/18 12:12 - Medications Medications: Current Medications Dextrose (Dextrose 50% Inj) 0 ml IV STAT PRN; Protocol PRN Reason: Hypoglycemia Protocol Dextrose (Glutose 15) 0 gm PO ONCE PRN; Protocol PRN Reason: Hypoglycemia Protocol Ferrous Sulfate (Feosol) 325 mg PO DAILY [facility] Last Admin: 01/08/18 10:47 Dose: 325 mg Glucagon (Glucagen Diagnostic Kit) 0 mg IM STAT PRN; Protocol PRN Reason: Hypoglycemia Protocol Dextrose (Dextrose 5% In Water 1000 Ml) 1,000 mls @ 0 mls/hr IV .Q0M PRN; Protocol; Per Protocol PRN Reason: Hypoglycemia Protocol Insulin Human Regular (Novolin R) 0 unit SC ACHS [place] PRN Reason: Protocol Last Admin: 01/08/18 08:10 Dose: Not Given Lorazepam (Ativan) 1 mg IVP Q6H PRN PRN Reason: Agitation Multivitamins (Hexavitamin) 1 tab PO DAILY [facility] Last Admin: 01/08/18 10:47 Dose: 1 tab Nystatin (Nystop Topical Powder) 1 applic TOP BID [facility] Stop: 01/21/18 18:01 Last Admin: 01/08/18 10:50 Dose: 1 applic Pantoprazole Sodium (Protonix Ec Tab) 40 mg PO DAILY [facility] Last Admin: 01/08/18 10:47 Dose: 40 mg Paroxetine HCl (Paxil) 20 mg PO DAILY [facility] Last Admin: 01/08/18 10:47 Dose: 20 mg Pneumococcal Polyvalent Vaccine (Pneumovax 23 Vaccine) 0.5 ml IM .ONCE ONE Stop: 01/10/18 22:01 Rivaroxaban (Xarelto) 15 mg PO BID [facility] Last Admin: 01/08/18 10:47 Dose: 15 mg Rosuvastatin Calcium (Crestor) 10 mg PO HS [facility] Last Admin: 01/07/18 21:43 Dose: 10 mg Physical Exam - Constitutional Appears: In Acute Distress, Chronically Ill - Head Exam Head Exam: ATRAUMATIC, NORMAL INSPECTION, NORMOCEPHALIC - Eye Exam Eye Exam: EOMI, Normal appearance, PERRL Pupil Exam: NORMAL ACCOMODATION, PERRL - ENT Exam ENT Exam: Mucous Membranes Moist, Normal Exam - Neck Exam Neck exam: Positive for: Normal Inspection - Respiratory Exam Respiratory Exam: Clear to Auscultation Bilateral, NORMAL BREATHING PATTERN - Cardiovascular Exam Cardiovascular Exam: REGULAR RHYTHM - GI/Abdominal Exam GI & Abdominal Exam: Normal Bowel Sounds, Soft - Rectal Exam Rectal Exam: Deferred - Extremities Exam Extremities exam: Positive for: joint swelling, pedal edema Additional comments: foot drop to right leg - Back Exam Back exam: NORMAL INSPECTION - Neurological Exam Neurological exam: Alert, Altered - Psychiatric Exam Psychiatric exam: Anxious - Skin Skin Exam: Dry, Normal Color, Warm Results - Vital Signs Recent Vital Signs: Last Vital Signs Temp 98.2 F 01/08/18 07:24 Pulse 80 01/08/18 07:24 Resp 20 01/08/18 07:24 BP 115/75 01/08/18 07:24 Pulse Ox 99 01/08/18 07:24 - Labs Result Diagrams: 01/08/18 09:10 01/08/18 08:41 Labs: Laboratory Results - last 24 hr 01/07/18 01/07/18 01/07/18 11:35 13:13 13:13 WBC 10.9 H RBC 4.20 Hgb 13.1 Hct 38.1 MCV 90.8 MCH 31.3 H MCHC 34.4 RDW 14.8 H Plt Count 299 MPV 9.2 Neut % (Auto) 71.7 Lymph % (Auto) 19.7 L [place] % (Auto) 7.7 Eos % (Auto) 0.5 Baso % (Auto) 0.4 Neut # (Auto) 7.8 H Lymph # (Auto) 2.2 [place] # (Auto) 0.8 Eos # (Auto) 0.1 Baso # (Auto) 0.0 PT 21.4 H INR 2.0 APTT 39 H Sodium Potassium Chloride Carbon Dioxide Anion Gap BUN Creatinine Est GFR ( Amer) Est GFR (Non-Af Amer) POC Glucose (mg/dL) 107 Random Glucose Hemoglobin A1c Calcium Phosphorus Magnesium Total Bilirubin AST ALT Alkaline Phosphatase Total Creatine Kinase Troponin I Total Protein Albumin Globulin Albumin/Globulin Ratio Triglycerides Cholesterol LDL Cholesterol Direct HDL Cholesterol 25-OH Vitamin D Total Free T4 TSH 3rd Generation Urine Color Urine Clarity Urine pH Ur Specific [place] Urine Protein Urine Glucose (UA) Urine Ketones Urine Blood Urine Nitrate Urine Bilirubin Urine Urobilinogen Ur Leukocyte Esterase Urine WBC (Auto) Urine RBC (Auto) Ur Squamous Epith Cells Urine Bacteria Hyaline Casts 01/07/18 01/07/18 01/07/18 13:13 16:05 16:36 WBC RBC Hgb Hct MCV MCH MCHC RDW Plt Count MPV Neut % (Auto) Lymph % (Auto) [place] % (Auto) Eos % (Auto) Baso % (Auto) Neut # (Auto) Lymph # (Auto) [place] # (Auto) Eos # (Auto) Baso # (Auto) PT INR APTT Sodium 143 Potassium 3.6 Chloride 102 Carbon Dioxide 27 Anion Gap 18 BUN 15 Creatinine 0.6 L Est GFR ( Amer) > 60 Est GFR (Non-Af Amer) > 60 POC Glucose (mg/dL) Random Glucose 100 Hemoglobin A1c Calcium 9.9 Phosphorus Magnesium Total Bilirubin 1.1 AST 38 H ALT 27 Alkaline Phosphatase 97 Total Creatine Kinase 57 Troponin I < 0.0120 Total Protein 8.4 H Albumin 4.9 Globulin 3.5 Albumin/Globulin Ratio 1.4 Triglycerides Cholesterol LDL Cholesterol Direct HDL Cholesterol 25-OH Vitamin D Total Free T4 TSH 3rd Generation Urine Color Yellow Urine Clarity Hazy Urine pH 5.0 Ur Specific [place] 1.010 Urine Protein Negative Urine Glucose (UA) Normal Urine Ketones Negative Urine Blood Negative Urine Nitrate Negative Urine Bilirubin Negative Urine Urobilinogen Normal Ur Leukocyte Esterase Neg Urine WBC (Auto) < 1 Urine RBC (Auto) < 1 Ur Squamous Epith Cells < 1 Urine Bacteria Rare Hyaline Casts 3-5 H 01/07/18 01/07/18 01/08/18 18:06 21:31 07:18 WBC RBC Hgb Hct MCV MCH MCHC RDW Plt Count MPV Neut % (Auto) Lymph % (Auto) [place] % (Auto) Eos % (Auto) Baso % (Auto) Neut # (Auto) Lymph # (Auto) [place] # (Auto) Eos # (Auto) Baso # (Auto) PT INR APTT Sodium Potassium Chloride Carbon Dioxide Anion Gap BUN Creatinine Est GFR ( Amer) Est GFR (Non-Af Amer) POC Glucose (mg/dL) 83 107 Random Glucose Hemoglobin A1c 5.5 Calcium Phosphorus Magnesium Total Bilirubin AST ALT Alkaline Phosphatase Total Creatine Kinase Troponin I Total Protein Albumin Globulin Albumin/Globulin Ratio Triglycerides Cholesterol LDL Cholesterol Direct HDL Cholesterol 25-OH Vitamin D Total Free T4 TSH 3rd Generation Urine Color Urine Clarity Urine pH Ur Specific [place] Urine Protein Urine Glucose (UA) Urine Ketones Urine Blood Urine Nitrate Urine Bilirubin Urine Urobilinogen Ur Leukocyte Esterase Urine WBC (Auto) Urine RBC (Auto) Ur Squamous Epith Cells Urine Bacteria Hyaline Casts 01/08/18 01/08/18 01/08/18 07:18 07:18 07:21 WBC RBC Hgb Hct MCV MCH MCHC RDW Plt Count MPV Neut % (Auto) Lymph % (Auto) [place] % (Auto) Eos % (Auto) Baso % (Auto) Neut # (Auto) Lymph # (Auto) [place] # (Auto) Eos # (Auto) Baso # (Auto) PT INR APTT Sodium Potassium Chloride Carbon Dioxide Anion Gap BUN Creatinine Est GFR ( Amer) Est GFR (Non-Af Amer) POC Glucose (mg/dL) 88 Random Glucose Hemoglobin A1c Calcium Phosphorus Magnesium Total Bilirubin AST ALT Alkaline Phosphatase Total Creatine Kinase Troponin I Total Protein Albumin Globulin Albumin/Globulin Ratio Triglycerides Cholesterol LDL Cholesterol Direct HDL Cholesterol 25-OH Vitamin D Total 31.3 Free T4 1.34 TSH 3rd Generation Urine Color Urine Clarity Urine pH Ur Specific [place] Urine Protein Urine Glucose (UA) Urine Ketones Urine Blood Urine Nitrate Urine Bilirubin Urine Urobilinogen Ur Leukocyte Esterase Urine WBC (Auto) Urine RBC (Auto) Ur Squamous Epith Cells Urine Bacteria Hyaline Casts 01/08/18 01/08/18 01/08/18 08:41 09:10 10:31 WBC 10.1 RBC 4.14 Hgb 12.9 Hct 38.0 MCV 91.7 MCH 31.2 H MCHC 34.0 RDW 14.6 H Plt Count 272 MPV 9.4 Neut % (Auto) 70.7 Lymph % (Auto) 21.2 [place] % (Auto) 5.8 Eos % (Auto) 1.4 Baso % (Auto) 0.9 Neut # (Auto) 7.2 H Lymph # (Auto) 2.1 [place] # (Auto) 0.6 Eos # (Auto) 0.1 Baso # (Auto) 0.1 PT 17.8 H INR 1.6 APTT 35 H Sodium 140 Potassium 3.9 Chloride 101 Carbon Dioxide 26 Anion Gap 16 BUN 16 Creatinine 0.6 L Est GFR ( Amer) > 60 Est GFR (Non-Af Amer) > 60 POC Glucose (mg/dL) Random Glucose 145 H Hemoglobin A1c Calcium 9.1 Phosphorus 3.3 Magnesium 2.0 Total Bilirubin 0.9 AST 33 ALT 23 Alkaline Phosphatase 84 Total Creatine Kinase Troponin I Total Protein 7.4 Albumin 4.3 Globulin 3.1 Albumin/Globulin Ratio 1.4 Triglycerides 65 Cholesterol 228 H LDL Cholesterol Direct 123 HDL Cholesterol 61 25-OH Vitamin D Total Free T4 TSH 3rd Generation 1.94 Urine Color Urine Clarity Urine pH Ur Specific [place] Urine Protein Urine Glucose (UA) Urine Ketones Urine Blood Urine Nitrate Urine Bilirubin Urine Urobilinogen Ur Leukocyte Esterase Urine WBC (Auto) Urine RBC (Auto) Ur Squamous Epith Cells Urine Bacteria Hyaline Casts 01/08/18 11:09 WBC RBC Hgb Hct MCV MCH MCHC RDW Plt Count MPV Neut % (Auto) Lymph % (Auto) [place] % (Auto) Eos % (Auto) Baso % (Auto) Neut # (Auto) Lymph # (Auto) [place] # (Auto) Eos # (Auto) Baso # (Auto) PT INR APTT Sodium Potassium Chloride Carbon Dioxide Anion Gap BUN Creatinine Est GFR ( Amer) Est GFR (Non-Af Amer) POC Glucose (mg/dL) 104 Random Glucose Hemoglobin A1c Calcium Phosphorus Magnesium Total Bilirubin AST ALT Alkaline Phosphatase Total Creatine Kinase Troponin I Total Protein Albumin Globulin Albumin/Globulin Ratio Triglycerides Cholesterol LDL Cholesterol Direct HDL Cholesterol 25-OH Vitamin D Total Free T4 TSH 3rd Generation Urine Color Urine Clarity Urine pH Ur Specific [place] Urine Protein Urine Glucose (UA) Urine Ketones Urine Blood Urine Nitrate Urine Bilirubin Urine Urobilinogen Ur Leukocyte Esterase Urine WBC (Auto) Urine RBC (Auto) Ur Squamous Epith Cells Urine Bacteria Hyaline Casts Assessment & Plan - Assessment and Plan (Free Text) Assessment: Palliative consult FULL Code, there is no Advance Directive on the chart I reviewed medical records, all diagnostic studies, examined and interviewed patient in the chair. Patient is alert, oriented to person and place. Patient did recognize me and knew my name. Patient is very anxious and worried about her cats at home, referring to them as " her babies'. Patient reports having three cats at home. Her dog recently . Patient does not clearly remember how dog's body was disposed. She remembers placing it in plastic bag and giving to her tenant. Patient extensively talked abut her house condition. In her mind, house only needs a little clean up. Patient is anxious to return home. She has her clothes packed up in bag, next to her, ready to leave. Patient cried worried about her cats. She said, she left enough food and water for them. She asking for reassurance . Those cats will be taken care of . and given back to her when she returns home. On physical exam, patient is not acute distress. Breathing is normal, denies cough. HR are regular, VS are WNL. Abdomen soft, states is hungry. Patient feels cold. Patient is not used to air conditioning. She has her sweater over her shoulders. LEs are with mild edema. Patent unable to ambulate without her ortho shoes and is asking for them. Per her, the new pair of shoes were to be delivered . Impression * This is chronically ill patient in no acute distress * Patient has been inside of house for long time and is disconnected from the reality of outside world. She has no TV nor radio in the house. The unhealthy and filthy condition of her house become her norm, therefore patient is not able to understand why she had to be from her home and her cats * Separation anxiety, patient misses her cats * At risk for elopement; has strong desire to return to her cats * Patient is not able to make her own Medical decisions * Unsteady gait due to deformity of feet * Patient feels restricted as she is unable to ambulate without her ortho shoes * Cold intolerance Suggestion * I would refer patient to psychiatrist as I feel hat patient's diagnosis involves more than Dementia ; * Patient needs reassurance that her cats will be taken care of, please involve Logistics Administrator * Continue safety watch * Please call Doctor Niño's office at [phone] and request more information about the status of patient's Ortho shoes * Keep patient away from AC * Contact patient's Legal Guardian for Medical Decisions making * Patient would benefit from shower while is in here, please order one I will fallow patient on as needed basis Thank you for consulting palliative care
--- NOTE | 2018-01-09 00:29 | CP.PCM.PN ---
Subjective - Date & Time of Evaluation Date of Evaluation: 01/08/18 Time of Evaluation: 11:00 - Subjective Subjective: PGY-[address] Jimenez Young. Patient seen and evaluated at bedside. Sitting up in chair, in no acute distress. Patient states she's fine and has no complaints at this time. Denies chest pain, shortness of breath, abdominal pain, nausea, vomiting, fever, chills , headache. Objective - Vital Signs/Intake and Output Vital Signs (last 24 hours): Temp Pulse Resp BP Pulse Ox 98.5 F 82 20 100/55 L 95 01/08/18 16:00 01/08/18 16:00 01/08/18 16:00 01/08/18 16:00 01/08/18 16:00 Intake and Output: 01/08/18 01/09/18 18:59 06:59 Intake Total 500 Balance 500 - Medications Medications: Current Medications Dextrose (Dextrose 50% Inj) 0 ml IV STAT PRN; Protocol PRN Reason: Hypoglycemia Protocol Dextrose (Glutose 15) 0 gm PO ONCE PRN; Protocol PRN Reason: Hypoglycemia Protocol Ferrous Sulfate (Feosol) 325 mg PO DAILY [facility] Last Admin: 01/08/18 10:47 Dose: 325 mg Glucagon (Glucagen Diagnostic Kit) 0 mg IM STAT PRN; Protocol PRN Reason: Hypoglycemia Protocol Dextrose (Dextrose 5% In Water 1000 Ml) 1,000 mls @ 0 mls/hr IV .Q0M PRN; Protocol; Per Protocol PRN Reason: Hypoglycemia Protocol Insulin Human Regular (Novolin R) 0 unit SC ACHS [facility] PRN Reason: Protocol Last Admin: 01/08/18 21:59 Dose: Not Given Lorazepam (Ativan) 1 mg IVP Q6H PRN PRN Reason: Agitation Multivitamins (Hexavitamin) 1 tab PO DAILY [facility] Last Admin: 01/08/18 10:47 Dose: 1 tab Nystatin (Nystop Topical Powder) 1 applic TOP BID [facility] Stop: 01/21/18 18:01 Last Admin: 01/08/18 17:47 Dose: 1 applic Pantoprazole Sodium (Protonix Ec Tab) 40 mg PO DAILY [facility] Last Admin: 01/08/18 10:47 Dose: 40 mg Paroxetine HCl (Paxil) 20 mg PO DAILY [facility] Last Admin: 01/08/18 10:47 Dose: 20 mg Pneumococcal Polyvalent Vaccine (Pneumovax 23 Vaccine) 0.5 ml IM .ONCE ONE Stop: 01/10/18 22:01 Rivaroxaban (Xarelto) 15 mg PO BID [facility] Last Admin: 01/08/18 17:46 Dose: 15 mg Rosuvastatin Calcium (Crestor) 10 mg PO HS [facility] Last Admin: 01/08/18 21:27 Dose: 10 mg - Labs Labs: 01/08/18 09:10 01/08/18 08:41 PT 17.8 SECONDS (9.7-12.2) H 01/08/18 10:31 INR 1.6 01/08/18 10:31 APTT 35 SECONDS (21-34) H 01/08/18 10:31 - Constitutional Appears: No Acute Distress - Head Exam Head Exam: ATRAUMATIC, NORMOCEPHALIC - Eye Exam Eye Exam: EOMI, PERRL - ENT Exam ENT Exam: Mucous Membranes Moist - Respiratory Exam Respiratory Exam: Clear to Ausculation Bilateral. absent: Rales, Rhonchi, Wheezes - Cardiovascular Exam Cardiovascular Exam: REGULAR RHYTHM, +S1, +S2 - GI/Abdominal Exam GI & Abdominal Exam: Soft, Normal Bowel Sounds. absent: Tenderness - Extremities Exam Extremities Exam: Pedal Edema. absent: Tenderness Additional comments: bilateral hallux vaglus deformity. LLE longer than RLE - Neurological Exam Neurological Exam: Alert, Awake, CN II-XII Intact, Oriented x3 Neuro motor strength exam: Left Upper Extremity: 5, Right Upper Extremity: 5, Left Lower Extremity: 5, Right Lower Extremity: 4 - Psychiatric Exam Psychiatric exam: Anxious - Skin Skin Exam: Dry, Intact, Normal Color, Warm Assessment and Plan - Assessment and Plan (Free Text) Plan: Social Issues/Failure to thrive/Self neglect Observe on med/surg Brought in by legal guardian for [place] [facility] eval Case Management/SW referral for placement PT/OT eval Fall risk precaution Dr Figueroa, Psych consult - help appreciated - f/u reccs Dementia Pt found oriented x 3, aware of context of admission CT Head (01/07/18): No acute intracranial pathologies CXR (01/07/18): NAD UA (01/07/18): WNL, No leuk esterase/nitrites; 3-5 Hyaline Casts EKG (01/07/18): NSR @ 72 bpm, Normal axis, No acute ST/T wave changes Troponin negative x 1 Perineal Fungal infection Nystatin topical powder BID x 14 days (January 07-) Dehydration Dry nasal/mucosal membranes Hyaline Casts in UA BUN not elevated 1 liter of LR @ 100cc/hr Hypercholesterolemia Pt taking Lipitor 20mg PO HS at home - Substitute Crestor 10mg PO HS (Lipitor Non-formulary) lipid panel: TG 65, CHL 228, LDL 123, HDL 61 A1C: 5.5 Hx DVT Record request sent to [facility] (pt admission in 2014 or 2015 - pt unsure) Restart home Xarelto 15mg PO BID venous doppler-No evidence of superficial or deep vein thrombosis Hx of Afib Listed on PMD chart Not in Afib on EKG at admission Restart home Xarelto 15mg PO BID Chronic CHF (unknown type) Documented by Patient PMD, Dr. Niño Not on BB/JUSTEN as home med f/u ECHO 01/08: R/o Rhabdomyolosis CPK WNL LR @ 100cc/hr for 1 Liter->completed Anxiety/Depression Ativan 2mg IV once in ED Ativan 1mg IV Q6H PRN for agitation Restart home Paxil 20mg PO Daily Dr Figueroa, Psych consult - help appreciated - f/u reccs Hallux Valgus/Gait dysfunction Pt wearing orthotic shoes with heel lifts PT/OT - uses walker at home Fall risk precaution Elevated AST-normalized Slight AST elevation at admission monitor 01/08 AST: 33 WNL Elevated INR- downtrending INR 2.0 on admission 01/08 repeat: PT 17.8, INR 1.6, aPTT 35 Hx of anemia Continue home Feosol 325mg PO Daily at home Hgb 13.1 on admission HTN Listed on PMD chart, though pt not on antihypertensive at home If elevated will consider starting antihypertensive based off ECHO, overnight vitals Monitor BP overnight-> Patient's bp 110s-100/70-50s. Antihypertensive will not be started at this time, continue to monitor Type Two Diabetes Mellitus Listed on PMD chart, Dr. Nñio Pt on no diabetes medications at home GREG Hypoglycemia protocol Accuchecks ACHS A1C: 5.5 DM neuropathy Monitor at this time Vitamin D Deficiency Pt on home Vit D3 1000units daily Vit D level: 31.3 WNL Prophylaxis Protonix 40mg PO Daily Heart healthy diet SCDs C/I due to history of DVT-> venous dopplers negative, will order SCD PT/OT eval- patient unsteady and at risk for falls, will work with patient 3-5 times/ week for gait training and therapeutic exercise. Dispo recommendation: subacute rehab. SW/Case Management working on long-term placement Palliative Care consult, [place] Pt state appointed legal guardian - Femi Michelle Phone number: [phone] Pt may not sign out AMA per conversation
--- NOTE | 2018-01-09 01:23 | CP.PCM.PN ---
<Landry Lagunas - Last Filed: 01/09/18 08:20> Subjective - Date & Time of Evaluation Date of Evaluation: 01/09/18 Time of Evaluation: 01:22 - Subjective Subjective: PGY-[address] Young service PAtient is seen and examined at bedside. Patient had no acute events overnight. Patient is no acute distress at this time. Patient is lying comfortably in bed. Patient denies Fever, chills, shortness of breath, chest pain, headaches, abdominal pain, nausea, vomiting, diarrhea or constipation. Objective - Vital Signs/Intake and Output Vital Signs (last 24 hours): Temp Pulse Resp BP Pulse Ox 98.6 F 77 20 98/58 L 96 01/08/18 23:31 01/08/18 23:31 01/08/18 23:31 01/08/18 23:31 01/08/18 23:31 Intake and Output: 01/08/18 01/09/18 18:59 06:59 Intake Total 500 Balance 500 - Medications Medications: Current Medications Dextrose (Dextrose 50% Inj) 0 ml IV STAT PRN; Protocol PRN Reason: Hypoglycemia Protocol Dextrose (Glutose 15) 0 gm PO ONCE PRN; Protocol PRN Reason: Hypoglycemia Protocol Ferrous Sulfate (Feosol) 325 mg PO DAILY [facility] Last Admin: 01/08/18 10:47 Dose: 325 mg Glucagon (Glucagen Diagnostic Kit) 0 mg IM STAT PRN; Protocol PRN Reason: Hypoglycemia Protocol Dextrose (Dextrose 5% In Water 1000 Ml) 1,000 mls @ 0 mls/hr IV .Q0M PRN; Protocol; Per Protocol PRN Reason: Hypoglycemia Protocol Insulin Human Regular (Novolin R) 0 unit SC ACHS [facility] PRN Reason: Protocol Last Admin: 01/08/18 21:59 Dose: Not Given Lorazepam (Ativan) 1 mg IVP Q6H PRN PRN Reason: Agitation Multivitamins (Hexavitamin) 1 tab PO DAILY [facility] Last Admin: 01/08/18 10:47 Dose: 1 tab Nystatin (Nystop Topical Powder) 1 applic TOP BID [facility] Stop: 01/21/18 18:01 Last Admin: 01/08/18 17:47 Dose: 1 applic Pantoprazole Sodium (Protonix Ec Tab) 40 mg PO DAILY [facility] Last Admin: 01/08/18 10:47 Dose: 40 mg Paroxetine HCl (Paxil) 20 mg PO DAILY [facility] Last Admin: 01/08/18 10:47 Dose: 20 mg Pneumococcal Polyvalent Vaccine (Pneumovax 23 Vaccine) 0.5 ml IM .ONCE ONE Stop: 01/10/18 22:01 Rivaroxaban (Xarelto) 15 mg PO BID [facility] Last Admin: 01/08/18 17:46 Dose: 15 mg Rosuvastatin Calcium (Crestor) 10 mg PO HS [facility] Last Admin: 01/08/18 21:27 Dose: 10 mg - Labs Labs: 01/08/18 09:10 01/08/18 08:41 PT 17.8 SECONDS (9.7-12.2) H 01/08/18 10:31 INR 1.6 01/08/18 10:31 APTT 35 SECONDS (21-34) H 01/08/18 10:31 - Constitutional Appears: Well, Non-toxic, No Acute Distress - Head Exam Head Exam: ATRAUMATIC, NORMAL INSPECTION, NORMOCEPHALIC - Eye Exam Eye Exam: EOMI, Normal appearance, PERRL - Neck Exam Neck Exam: Full ROM, Normal Inspection - Respiratory Exam Respiratory Exam: Clear to Ausculation Bilateral, NORMAL BREATHING PATTERN. absent: Decreased Breath Sounds, Rales, Rhonchi, Wheezes, Respiratory Distress - Cardiovascular Exam Cardiovascular Exam: REGULAR RHYTHM, +S1, +S2. absent: Clicks, Gallop, Murmur - GI/Abdominal Exam GI & Abdominal Exam: Soft, Normal Bowel Sounds. absent: Distended, Guarding, Tenderness - Extremities Exam Extremities Exam: Normal Inspection - Neurological Exam Neurological Exam: Awake - Psychiatric Exam Psychiatric exam: Normal Affect, Normal Mood - Skin Skin Exam: Dry, Intact Assessment and Plan - Assessment and Plan (Free Text) Plan: Social Issues/Failure to thrive/Self neglect Observe on med/surg Brought in by legal guardian (Femi Martinez) for group home eval Case Management/SW referral for placement - F/U thursday PT/OT eval Fall risk precaution Dr Figueroa, Psych consult - help appreciated - f/u reccs Dementia Pt found oriented x 3, aware of context of admission CT Head (01/07/18): No acute intracranial pathologies CXR (01/07/18): NAD UA (01/07/18): WNL, No leuk esterase/nitrites; 3-5 Hyaline Casts EKG (01/07/18): NSR @ 72 bpm, Normal axis, No acute ST/T wave changes Troponin negative x 1 Perineal Fungal infection Nystatin topical powder BID x 14 days (January 07-) Dehydration Dry nasal/mucosal membranes Hyaline Casts in UA BUN not elevated 1 liter of LR @ 100cc/hr Hypercholesterolemia Pt taking Lipitor 20mg PO HS at home - Substitute Crestor 10mg PO HS (Lipitor Non-formulary) lipid panel: TG 65, CHL 228, LDL 123, HDL 61 01/08 A1C: 5.5 Hx DVT [place] [facility] [place] 2015 - pt unsure) Restart home Xarelto 15mg PO BID venous doppler-No evidence of superficial or deep vein thrombosis Hx of Afib Listed on PMD chart Not in Afib on EKG at admission Restart home Xarelto 15mg PO BID Chronic CHF (unknown type) Documented by Patient PMD, Dr. Niño Not on BB/JUSTEN as home med f/u ECHO, done on 01/08 R/o Rhabdomyolosis CPK WNL LR @ 100cc/hr for 1 Liter->completed Anxiety/Depression Ativan 2mg IV once in ED Ativan 1mg IV Q6H PRN for agitation Restart home Paxil 20mg PO Daily Dr Figueroa, Psych consult - help appreciated - f/u reccs Hallux Valgus/Gait dysfunction Pt wearing orthotic shoes with heel lifts PT/OT - uses walker at home Fall risk precaution Elevated AST-normalized Slight AST elevation at admission monitor 01/08 AST: 33 WNL Elevated INR- downtrending INR 2.0 on admission 01/08 repeat: PT 17.8, INR 1.6, aPTT 35 Hx of anemia Continue home Feosol 325mg PO Daily at home Hgb 13.1 on admission, Hbg 12.9 on 01/08 HTN Listed on PMD chart, though pt not on antihypertensive at home If elevated will consider starting antihypertensive based off ECHO, overnight vitals Monitor BP overnight-> Patient's bp 110s-100/70-50s. Antihypertensive will not be started at this time, continue to monitor Type Two Diabetes Mellitus Listed on PMD chart, Dr. Niño Pt on no diabetes medications at home GREG Hypoglycemia protocol Accuchecks ACHS 01/08 HbA1C: 5.5 DM neuropathy Monitor at this time Vitamin D Deficiency Pt on home Vit D3 1000units daily 01/08 Vit D level: 31.3 WNL Prophylaxis Protonix 40mg PO Daily Heart healthy diet SCDs C/I due to history of DVT-> venous dopplers negative, will order SCD PT/OT eval- patient unsteady and at risk for falls, will work with patient 3-5 times/ week for gait training and therapeutic exercise. Dispo recommendation: subacute rehab. SW/Case Management working on long-term placement Palliative Care consult, [place] Pt state appointed legal guardian - Femi Martinez Phone number: [phone] Pt may not sign out AMA per conversation <Chase Young - Last Filed: 01/09/18 19:11> Objective - Vital Signs/Intake and Output Vital Signs (last 24 hours): Temp Pulse Resp BP Pulse Ox 97.7 F 78 20 99/56 L 98 01/09/18 15:00 01/09/18 15:00 01/09/18 15:00 01/09/18 15:00 01/09/18 15:00 Intake and Output: 01/09/18 01/09/18 06:59 18:59 Intake Total 750 480 Balance 750 480 - Medications Medications: Current Medications Dextrose (Dextrose 50% Inj) 0 ml IV STAT PRN; Protocol PRN Reason: Hypoglycemia Protocol Dextrose (Glutose 15) 0 gm PO ONCE PRN; Protocol PRN Reason: Hypoglycemia Protocol Ferrous Sulfate (Feosol) 325 mg PO DAILY [facility] Last Admin: 01/09/18 10:51 Dose: 325 mg Glucagon (Glucagen Diagnostic Kit) 0 mg IM STAT PRN; Protocol PRN Reason: Hypoglycemia Protocol Dextrose (Dextrose 5% In Water 1000 Ml) 1,000 mls @ 0 mls/hr IV .Q0M PRN; Protocol; Per Protocol PRN Reason: Hypoglycemia Protocol Insulin Human Regular (Novolin R) 0 unit SC [facility] PRN Reason: Protocol Last Admin: 01/09/18 16:35 Dose: Not Given Lorazepam (Ativan) 1 mg IVP Q6H PRN PRN Reason: Agitation Multivitamins (Hexavitamin) 1 tab PO DAILY [facility] Last Admin: 01/09/18 10:51 Dose: 1 tab Nystatin (Nystop Topical Powder) 1 applic TOP BID [facility] Stop: 01/21/18 18:01 Last Admin: 01/09/18 17:27 Dose: Not Given Pantoprazole Sodium (Protonix Ec Tab) 40 mg PO DAILY [facility] Last Admin: 01/09/18 10:51 Dose: 40 mg Paroxetine HCl (Paxil) 20 mg PO DAILY [facility] Last Admin: 01/09/18 10:51 Dose: 20 mg Pneumococcal Polyvalent Vaccine (Pneumovax 23 Vaccine) 0.5 ml IM .ONCE ONE Stop: 01/10/18 22:01 Rivaroxaban (Xarelto) 15 mg PO BID [facility] Last Admin: 01/09/18 17:28 Dose: Not Given Rosuvastatin Calcium (Crestor) 10 mg PO HS [facility] Last Admin: 01/08/18 21:27 Dose: 10 mg - Labs Labs: 01/09/18 07:56 01/09/18 07:56 PT 17.8 SECONDS (9.7-12.2) H 01/08/18 10:31 INR 1.6 01/08/18 10:31 APTT 35 SECONDS (21-34) H 01/08/18 10:31 Attending/Attestation - Attestation I have personally seen and examined this patient.: Yes I have fully participated in the care of the patient.: Yes I have reviewed all pertinent clinical information, including history, physical exam and plan: Yes Notes (Text): 01/09/18 18:59 Hospitalist Progress Note Patient was seen and examined at 4 PM. Patient is a 67 year old female who was brought into the hospital on 01/07/18 by her [facility] appointed Guardian Femi Martinez ([phone]) after she was found to be living in poor conditions at home (please see full details in HPI of admitting H&P). [facility] [employer] Lavinia and Social Workers Carlos Enrique and Arti are in contact with Elly Martinez whose office is working on obtaining Medicaid for patient and once obtained will decide custodial placement for patient. Upon FULL ROS Patient continues to be very concerned about her current situation and at time crying as she would like to return to home and wonders why the office of Elly can not just hire someone to clean her house and yard so that she can return home. She also continues to be very concerned about her 3 cats, which I confirmed with Ms. Martinez on 01/07/18 at the time of admission, someone was caring for. NO chest pain NO palpitations NO SOB/cough NO dysphagia/odynophagia NO abdominal pain NO n/v/d/c: NO black or bloody stools NO burning/pain with urination NO headache NO lightheadedness/dizziness NO new changes in vision NO new changes in hearing NO paresthesias Physical Exam - Constitutional Appears: Non-toxic, No Acute Distress - Head Exam Head Exam: absent: ATRAUMATIC, NORMAL INSPECTION, NORMOCEPHALIC - Eye Exam Eye Exam: EOMI, Normal appearance. absent: Scleral icterus - ENT Exam ENT Exam: Mucous Membranes Moist - Neck Exam Neck exam: Negative for: Tenderness, Lymphadenopathy - Respiratory Exam Respiratory Exam: Clear to Auscultation Bilateral, NORMAL BREATHING PATTERN. absent: Rales, Rhonchi, Wheezes - Cardiovascular Exam Cardiovascular Exam: RRR, +S1, +S2 - GI/Abdominal Exam GI & Abdominal Exam: Normal Bowel Sounds, Soft. absent: Tenderness Additional comments: Central Obesity - Extremities Exam Extremities exam: Positive for: pedal edema, pedal pulses present. Negative for : normal inspection Additional comments: Severe hallux valgus deformity bilateral feet, Left Leg Longer than the Right Leg (patient has a history of heel lifts in her shoes) - Back Exam Back exam: absent: CVA tenderness (L), CVA tenderness (R) - Neurological Exam Neurological exam: Alert, CN II-XII Intact, Oriented x3 (patient unaware of date , but aware of month and the year and the president; she is also aware of context of why she is here), Reflexes Normal - Psychiatric Exam Psychiatric exam: Normal Affect but very teary throughout exam - Skin Skin Exam: Normal Color, Warm. Fungal Rash noted in the perineum at the time of admission on 01/07/18 Assessment and Plan: 1). Self Neglect [facility] [employer] Lavinia and Social Workers Carlos Enrique and Arti are in contact with Guardian Femi Martinez ([phone]) whose office is working on obtaining Medicaid for patient and once obtained will decide intermediate school teacher placement for patient. 2). Possible Dementia NOT currently on any medications 3). Perineal Fungal Rash As noted on exam at the time of admission 01/07/18 Nystatin Powder BID through 01/21/18 4). Dehydration Oral mucosa and nasal turbinates are now moist after LR x 1 liter Bun/Cr are normal 5). Hx HLD Crestor 10 mg PO HS 6). Hx DVT Unspecified laterality Venous Duplex of Bilateral LE shows NO evidence of DVT 7). Hx Atrial Fibrillation NSR upon admitting EKG Xarelto 15 mg PO BID F/U 2D Echocardiogram 8). Questionable Hx of HF F/U 2D Echocardiogram 9). R/O Rhabdomyolysis CK is normal Patient given 1 liter of LR upon admission 10). Elevated AST This has now normalized 11). Hx Anxiety/Depression Ativan 1 mg IV Q6H PRN Paroxetine 20 mg PO 1x/day 12). Hallux Valgus Bilateral Feet/Gait Dysfunction Uses can at home and heel lift in Right shoe F/U PT/OT 13). Elevated INR on admission This is now normal 14). Hx Anemia likely Secondary to Iron Deficiency Ferrous Sulfate 325 mg PO 1x/day Hgb/Hct are now normal 15). Hx HTN Controlled on NO medications 16). Hx DM 2 Currently on NO medications HgBA1C is 5.5 RISS ACHS 17). Hx Diabetic Neuropathy This is questionable as well: currently no medications and patient does not complain of any paresthesias 18). Hx Vitamin D Deficiency Not on any medication Vitamin D level is 31.3 19). Prophylaxis SCDs Patient is on Xarelto PT/OT Heart Healthy 2 gm Na Low Carb Diet Disposition: needs Medicaid set up by the Office of Public Guardian and then intermediate school teacher placement. Please note that at the time of admission 01/07/18, office of primary care physician Dr. Niño and Dr. Niño herself were contacted to obtain history on this patient. Unfortunately the office nor Dr. Niño could provide any more information than what we have documented in the H&P on 01/07/18. Chase Young D.O.
[2018-01-09 08:12] LABS: BASO % 0.6 % (0.0-2.0); EOS # 0.2 K/uL (0.0-0.7); HEMOGLOBIN 12.6 g/dL (11.0-16.0); LYMPH # 1.9 K/uL (1.0-4.3); LYMPH % 23.9 % (20.0-40.0); MEAN CELL VOLUME 92.7 fL (81.0-99.0); MEAN CORPUSCULAR HEMOGLOBIN 31.7 pg (27.0-31.0); MEAN CORPUSCULAR HGB CONC 34.2 g/dL (33.0-37.0); MEAN PLATELET VOLUME 9.5 fL (7.2-11.7); MONO # 0.7 K/uL (0.0-0.8); MONO % 8.7 % (0.0-10.0); NEUT # 5.1 K/uL (1.8-7.0); NEUT % 63.8 % (50.0-75.0); RBC 3.99 Mil/uL (3.80-5.20); RED CELL DISTRIBUTION WIDTH 14.9 % (11.5-14.5)
[2018-01-09] MEDS: (Novolin R) Insulin Human Regular 100 units/ml vial SC SCH ×4 (08:17→21:45)
[2018-01-09 08:29] LABS: ALB/GLOB RATIO 1.6 (1.0-2.1); ALBUMIN 4.5 g/dL (3.5-5.0); ALT/SGPT 25 U/L (9-52); AST/SGOT 33 U/L (14-36); BLOOD UREA NITROGEN 16 mg/dL (7-17); CALCIUM 9.2 mg/dl (8.6-10.4); GFR AFRICAN-AMERICAN > 60; GFR NON-AFRICAN AMERICAN > 60
[2018-01-09] MEDS: Multiple Vitamins Tab PO SCH (10:51)
[2018-01-09] MEDS: Pantoprazole 40 mg EC Tab PO SCH (10:51)
[2018-01-10 07:47] LABS: BASO % 0.5 % (0.0-2.0); EOS # 0.2 K/uL (0.0-0.7); EOS % 2.2 % (0.0-4.0); HEMOGLOBIN 12.4 g/dL (11.0-16.0); LYMPH # 1.9 K/uL (1.0-4.3); MEAN CELL VOLUME 92.2 fL (81.0-99.0); MEAN CORPUSCULAR HEMOGLOBIN 31.3 pg (27.0-31.0); MEAN CORPUSCULAR HGB CONC 33.9 g/dL (33.0-37.0); MEAN PLATELET VOLUME 9.4 fL (7.2-11.7); MONO # 0.8 K/uL (0.0-0.8); MONO % 8.2 % (0.0-10.0); NEUT # 6.5 K/uL (1.8-7.0); NEUT % 69.1 % (50.0-75.0); RBC 3.96 Mil/uL (3.80-5.20); RED CELL DISTRIBUTION WIDTH 14.8 % (11.5-14.5); WHITE BLOOD COUNT 9.4 K/uL (4.8-10.8)
[2018-01-10 08:00] LABS: ALB/GLOB RATIO 1.4 (1.0-2.1); ALBUMIN 4.4 g/dL (3.5-5.0); ALT/SGPT 20 U/L (9-52); AST/SGOT 32 U/L (14-36); BLOOD UREA NITROGEN 23 mg/dL (7-17); CALCIUM 9.3 mg/dl (8.6-10.4); GFR AFRICAN-AMERICAN > 60; GFR NON-AFRICAN AMERICAN > 60
[2018-01-10] MEDS: (Novolin R) Insulin Human Regular 100 units/ml vial SC SCH ×4 (08:01→21:44)
--- NOTE | 2018-01-10 08:21 | CP.PCM.PN ---
<Landry Lagunas - Last Filed: 01/10/18 09:46> Subjective - Date & Time of Evaluation Date of Evaluation: 01/10/18 Time of Evaluation: 08:21 - Subjective Subjective: PGY-[address] Chase Young Service Patient is seen and examined sitting in chair. Patient seems upset during the encounter. Patient says she is worried about her pets and her tenants and demands to leave the hospital to return home. Patient says she will "michael if something happens to her pets". Patient says she has no current health complains. Patient denies Fever, chills, shortness of breath, headache, chest pain, abdominal pain, dysuria, nausea, vomiting, diarrhea or constipation. Objective - Vital Signs/Intake and Output Vital Signs (last 24 hours): Temp Pulse Resp BP Pulse Ox 97.6 F 69 20 103/64 97 01/09/18 23:21 01/09/18 23:21 01/09/18 23:21 01/09/18 23:21 01/09/18 23:21 Intake and Output: 01/10/18 01/10/18 06:59 18:59 Intake Total 480 Balance 480 - Medications Medications: Current Medications Dextrose (Dextrose 50% Inj) 0 ml IV STAT PRN; Protocol PRN Reason: Hypoglycemia Protocol Dextrose (Glutose 15) 0 gm PO ONCE PRN; Protocol PRN Reason: Hypoglycemia Protocol Ferrous Sulfate (Feosol) 325 mg PO DAILY [facility] Last Admin: 01/09/18 10:51 Dose: 325 mg Glucagon (Glucagen Diagnostic Kit) 0 mg IM STAT PRN; Protocol PRN Reason: Hypoglycemia Protocol Dextrose (Dextrose 5% In Water 1000 Ml) 1,000 mls @ 0 mls/hr IV .Q0M PRN; Protocol; Per Protocol PRN Reason: Hypoglycemia Protocol Insulin Human Regular (Novolin R) 0 unit SC ACHS TRACY PRN Reason: Protocol Last Admin: 01/10/18 08:01 Dose: Not Given Lorazepam (Ativan) 1 mg IVP Q6H PRN PRN Reason: Agitation Multivitamins (Hexavitamin) 1 tab PO DAILY [facility] Last Admin: 01/09/18 10:51 Dose: 1 tab Nystatin (Nystop Topical Powder) 1 applic TOP BID [facility] Stop: 01/21/18 18:01 Last Admin: 01/09/18 17:27 Dose: Not Given Pantoprazole Sodium (Protonix Ec Tab) 40 mg PO DAILY [facility] Last Admin: 01/09/18 10:51 Dose: 40 mg Paroxetine HCl (Paxil) 20 mg PO DAILY [facility] Last Admin: 01/09/18 10:51 Dose: 20 mg Pneumococcal Polyvalent Vaccine (Pneumovax 23 Vaccine) 0.5 ml IM .ONCE ONE Stop: 01/10/18 22:01 Rivaroxaban (Xarelto) 15 mg PO BID [facility] Last Admin: 01/09/18 18:00 Dose: 15 mg Rosuvastatin Calcium (Crestor) 10 mg PO HS [facility] Last Admin: 01/09/18 21:43 Dose: 10 mg - Labs Labs: 01/10/18 07:34 01/10/18 07:34 PT 17.8 SECONDS (9.7-12.2) H 01/08/18 10:31 INR 1.6 01/08/18 10:31 APTT 35 SECONDS (21-34) H 01/08/18 10:31 - Constitutional Appears: Non-toxic, No Acute Distress - Head Exam Head Exam: ATRAUMATIC, NORMAL INSPECTION - Eye Exam Eye Exam: EOMI, Normal appearance - Neck Exam Neck Exam: Full ROM, Normal Inspection - Respiratory Exam Respiratory Exam: Clear to Ausculation Bilateral, NORMAL BREATHING PATTERN - Cardiovascular Exam Cardiovascular Exam: Tachycardia, +S1, +S2 - GI/Abdominal Exam GI & Abdominal Exam: Soft - Extremities Exam Extremities Exam: Full ROM, Normal Inspection - Back Exam Back Exam: NORMAL INSPECTION - Neurological Exam Neurological Exam: Awake - Psychiatric Exam Psychiatric exam: Agitated, Anxious - Skin Skin Exam: Dry, Normal Color Assessment and Plan - Assessment and Plan (Free Text) Plan: Social Issues/Failure to thrive/Self neglect Observe on med/surg Brought in by legal guardian (Femi Martinez) for fci eval Case Management/SW referral for placement - F/U thursday, working on getting medicaid and placement for patient PT/OT eval - recommend PT for progressive mobility training, strengthening and balance Fall risk precaution Dr Figueroa, Psych consult - help appreciated - f/u reccs Dementia Pt seems more upset and defiant. Pt found oriented x 3, aware of context of admission CT Head (01/07/18): No acute intracranial pathologies CXR (01/07/18): NAD UA (01/07/18): WNL, No leuk esterase/nitrites; 3-5 Hyaline Casts EKG (01/07/18): NSR @ 72 bpm, Normal axis, No acute ST/T wave changes Troponin negative x 1 Perineal Fungal infection Nystatin topical powder BID x 14 days (January 07-) Dehydration moist nasal mucosa BUN: 16 -> 23 (01/10) Cr 0.6 -> 0.8 (01/10) Hypercholesterolemia Continue Lipitor 10mg PO HS lipid panel: TG 65, CHL 228, LDL 123, HDL 61 01/08 A1C: 5.5 Hx DVT venous doppler-No evidence of superficial or deep vein thrombosis Chronic CHF (unknown type) Documented by Patient PMD, Dr. Niño Not on BB/JUSTEN as home med f/u ECHO, done on 01/08 Anxiety/Depression Patient seemed upset and defiant, worried about her pets and her tenants Ativan 1mg IV Q6H PRN for agitation Paroxetine 20mg Po 1x/daily Hallux Valgus/Gait dysfunction Pt wearing orthotic shoes with heel lifts PT/OT - uses walker at home Fall risk precaution Hx of anemia Continue home Feosol 325mg PO Daily at home Hgb 13.1 on admission, Hbg 12.9 on 01/08 HTN 01/10 - BP 108/74 - stable BP Listed on PMD chart, though pt not on antihypertensive at home If elevated will consider starting antihypertensive based off ECHO Continue to monitor Type Two Diabetes Mellitus Listed on PMD chart, Dr. Niño Pt on no diabetes medications at home GREG Hypoglycemia protocol Accuchecks ACHS 01/08 HbA1C: 5.5 DM neuropathy Monitor at this time Vitamin D Deficiency 01/08 Vit D level: 31.3 WNL Prophylaxis Protonix 40mg PO Daily Heart healthy diet SCDs C/I due to history of DVT-> venous dopplers negative, will order SCD PT/OT eval- patient unsteady and at risk for falls, will work with patient 3-5 times/ week for gait training and therapeutic exercise. Dispo recommendation: subacute rehab. SW/Case Management working on long-term placement Palliative Care consult, [place] Pt state appointed legal guardian - Femi Martinez Phone number: [phone] Pt may not sign out AMA per conversation <Chase Young - Last Filed: 01/10/18 11:55> Objective - Vital Signs/Intake and Output Vital Signs (last 24 hours): Temp Pulse Resp BP Pulse Ox 98.5 F 68 20 108/74 97 01/10/18 08:00 01/10/18 08:00 01/10/18 08:00 01/10/18 08:00 01/10/18 08:00 Intake and Output: 01/10/18 01/10/18 06:59 18:59 Intake Total 480 Balance 480 - Medications Medications: Current Medications Dextrose (Dextrose 50% Inj) 0 ml IV STAT PRN; Protocol PRN Reason: Hypoglycemia Protocol Dextrose (Glutose 15) 0 gm PO ONCE PRN; Protocol PRN Reason: Hypoglycemia Protocol Ferrous Sulfate (Feosol) 325 mg PO DAILY [facility] Last Admin: 01/10/18 09:03 Dose: 325 mg Glucagon (Glucagen Diagnostic Kit) 0 mg IM STAT PRN; Protocol PRN Reason: Hypoglycemia Protocol Dextrose (Dextrose 5% In Water 1000 Ml) 1,000 mls @ 0 mls/hr IV .Q0M PRN; Protocol; Per Protocol PRN Reason: Hypoglycemia Protocol Insulin Human Regular (Novolin R) 0 unit SC ACHS [facility] PRN Reason: Protocol Last Admin: 01/10/18 08:01 Dose: Not Given Lorazepam (Ativan) 1 mg IVP Q6H PRN PRN Reason: Agitation Multivitamins (Hexavitamin) 1 tab PO DAILY [facility] Last Admin: 01/10/18 09:03 Dose: 1 tab Nystatin (Nystop Topical Powder) 1 applic TOP BID [facility] Stop: 01/21/18 18:01 Last Admin: 01/10/18 09:05 Dose: 1 applic Pantoprazole Sodium (Protonix Ec Tab) 40 mg PO DAILY [facility] Last Admin: 01/10/18 09:03 Dose: 40 mg Paroxetine HCl (Paxil) 20 mg PO DAILY [facility] Last Admin: 01/10/18 09:03 Dose: 20 mg Pneumococcal Polyvalent Vaccine (Pneumovax 23 Vaccine) 0.5 ml IM .ONCE ONE Stop: 01/10/18 22:01 Rivaroxaban (Xarelto) 15 mg PO BID [facility] Last Admin: 01/10/18 09:03 Dose: 15 mg Rosuvastatin Calcium (Crestor) 10 mg PO [facility] Last Admin: 01/09/18 21:43 Dose: 10 mg - Labs Labs: 01/10/18 07:34 01/10/18 07:34 PT 17.8 SECONDS (9.7-12.2) H 01/08/18 10:31 INR 1.6 01/08/18 10:31 APTT 35 SECONDS (21-34) H 01/08/18 10:31 Attending/Attestation - Attestation I have personally seen and examined this patient.: Yes I have fully participated in the care of the patient.: Yes I have reviewed all pertinent clinical information, including history, physical exam and plan: Yes Notes (Text): 01/10/18 11:54 Hospitalist Progress Note Patient was seen and examined at 11:45 AM. Patient is a 67 year old female who was brought into the hospital on 01/07/18 by her [facility] appointed Guardian Femi Martinez ([phone]) after she was found to be living in poor conditions at home (please see full details in HPI of admitting H&P). [facility] Track Laminating Machine Tender Lavinia and Social Workers Carlos Enrique and Arti are in contact with Guardian Femi Martinez whose office is working on obtaining Medicaid for patient and once obtained will decide exterminator termite placement for patient. Upon FULL ROS Patient continues to be very concerned about her current situation and at time crying as she would like to return to home and wonders why the office of Guardian can not just hire someone to clean her house and yard so that she can return home. She also continues to be very concerned about her 3 cats, which I confirmed with Ms. Martinez on 01/07/18 at the time of admission, someone was caring for. She is states that she will michael if something happens to her cats NO chest pain NO palpitations NO SOB/cough NO dysphagia/odynophagia NO abdominal pain NO n/v/d/c: NO black or bloody stools NO burning/pain with urination NO headache NO lightheadedness/dizziness NO new changes in vision NO new changes in hearing NO paresthesias Physical Exam - Constitutional Appears: Non-toxic, No Acute Distress - Head Exam Head Exam: absent: ATRAUMATIC, NORMAL INSPECTION, NORMOCEPHALIC - Eye Exam Eye Exam: EOMI, Normal appearance. absent: Scleral icterus - ENT Exam ENT Exam: Mucous Membranes Moist - Neck Exam Neck exam: Negative for: Tenderness, Lymphadenopathy - Respiratory Exam Respiratory Exam: Clear to Auscultation Bilateral, NORMAL BREATHING PATTERN. absent: Rales, Rhonchi, Wheezes - Cardiovascular Exam Cardiovascular Exam: RRR, +S1, +S2 - GI/Abdominal Exam GI & Abdominal Exam: Normal Bowel Sounds, Soft. absent: Tenderness Additional comments: Central Obesity - Extremities Exam Extremities exam: Positive for: pedal edema, pedal pulses present. Negative for : normal inspection Additional comments: Severe hallux valgus deformity bilateral feet, Left Leg Longer than the Right Leg (patient has a history of heel lifts in her shoes) - Back Exam Back exam: absent: CVA tenderness (L), CVA tenderness (R) - Neurological Exam Neurological exam: Alert, CN II-XII Intact, Oriented x3 (patient unaware of date , but aware of month and the year and the president; she is also aware of context of why she is here), Reflexes Normal - Psychiatric Exam Psychiatric exam: Normal Affect but very teary throughout exam - Skin Skin Exam: Normal Color, Warm. Fungal Rash noted in the perineum at the time of admission on 01/07/18 Assessment and Plan: 1). Self Neglect [facility] Track [employer] Machine Tender Lavinia and Social Workers Carlos Enrique and Arti are in contact with Guardian Femi Yepezewamercedes ([phone]) whose office is working on obtaining Medicaid for patient and once obtained will decide exterminator termite placement for patient. 2). Possible Dementia NOT currently on any medications 3). Perineal Fungal Rash As noted on exam at the time of admission 01/07/18 Nystatin Powder BID through 01/21/18 4). Dehydration Oral mucosa and nasal turbinates are now moist after LR x 1 liter Bun/Cr are normal 5). Hx HLD Crestor 10 mg PO HS 6). Hx DVT Unspecified laterality Venous Duplex of Bilateral LE shows NO evidence of DVT 7). Hx Atrial Fibrillation NSR upon admitting EKG Xarelto 15 mg PO BID F/U 2D Echocardiogram 8). Questionable Hx of HF F/U 2D Echocardiogram 9). R/O Rhabdomyolysis CK is normal Patient given 1 liter of LR upon admission 10). Elevated AST This has now normalized 11). Hx Anxiety/Depression Ativan 1 mg IV Q6H PRN Paroxetine 20 mg PO 1x/day 12). Hallux Valgus Bilateral Feet/Gait Dysfunction Uses can at home and heel lift in Right shoe F/U PT/OT 13). Elevated INR on admission This is now normal 14). Hx Anemia likely Secondary to Iron Deficiency Ferrous Sulfate 325 mg PO 1x/day Hgb/Hct are now normal 15). Hx HTN Controlled on NO medications 16). Hx DM 2 Currently on NO medications HgBA1C is 5.5 RISS ACHS 17). Hx Diabetic Neuropathy This is questionable as well: currently no medications and patient does not complain of any paresthesias 18). Hx Vitamin D Deficiency Not on any medication Vitamin D level is 31.3 19). Prophylaxis SCDs Patient is on Xarelto PT/OT Heart Healthy 2 gm Na Low Carb Diet Disposition: needs Medicaid set up by the Office of Public Guardian and then retirement placement. Please note that at the time of admission 01/07/18, office of primary care physician Dr. Niño and Dr. Niño herself were contacted to obtain history on this patient. Unfortunately the office nor Dr. Niño could provide any more information than what we have documented in the H&P on 01/07/18. Chase Young D.O.
[2018-01-10] MEDS: Multiple Vitamins Tab PO SCH (09:03)
[2018-01-10] MEDS: Pantoprazole 40 mg EC Tab PO SCH (09:03)
--- NOTE | 2018-01-10 13:56 | CARD ---
APPROVED REPORT Date of service: 01/08/2018 EXAM: Two-dimensional and M-mode echocardiogram with Doppler and color Doppler. INDICATION Congestive Heart Failure RISK FACTORS Hyperlipidemia 2D DIMENSIONS IVSd0.8 (0.7-1.1cm)LVDd4.2 (3.9-5.9cm) PWd0.7 (0.7-1.1cm)LVDs2.7 (2.5-4.0cm) FS (%) 36.4 %LVEF (%)66.5 (>50%) M-Mode DIMENSIONS Left Atrium (MM)3.67 (2.5-4.0cm)IVSd0.70 (0.7-1.1cm) Aortic Root3.01 (2.2-3.7cm)LVDd5.22 (4.0-5.6cm) Aortic Cusp Exc.1.91 (1.5-2.0cm)PWd0.74 (0.7-1.1cm) FS (%) 29 %LVDs3.69 (2.0-3.8cm) LVEF (%)56 (>50%) Aortic Valve AI P 1/2 [id number] Mitral Valve MV E Eqwlndnp80.1cm/sMV A Vlpgddva56.1cm/sE/A ratio1.0 TDI E/Lateral E'0.0E/Medial E'0.0 Tricuspid Valve TR Peak [id number]/sTR Peak Gr.[id number] <Conclusion> normal size la,lv & ra rv. normal lv wall motion,thickness,systolic & diastolic function with lvef of 65-70%. normal aortic,mitral,tv & pv. trace ai,tr with normal pulmonary systolic pressures of 29 mm of hg. no pericrdial effusion. normal size aortic root & ivc.
--- NOTE | 2018-01-10 16:12 | CARD ---
APPROVED REPORT Date of service: 01/07/2018 EKG Measurement Heart [id number] <Conclusion> Normal sinus rhythm. old anterior mi can not be r/o.
[2018-01-10] MEDS ORDERED: Pneumococcal 23-Valent Vaccine IM ONE (22:00)
[2018-01-11 07:20] LABS: ALB/GLOB RATIO 1.4 (1.0-2.1); ALBUMIN 4.2 g/dL (3.5-5.0); ALT/SGPT 19 U/L (9-52); AST/SGOT 27 U/L (14-36); BLOOD UREA NITROGEN 27 mg/dL (7-17); CALCIUM 9.2 mg/dl (8.6-10.4); GFR AFRICAN-AMERICAN > 60; GFR NON-AFRICAN AMERICAN > 60
--- NOTE | 2018-01-11 07:28 | CP.PCM.PN ---
<Fani Florian P - Last Filed: 01/11/18 22:00> Subjective - Date & Time of Evaluation Date of Evaluation: 01/11/18 Time of Evaluation: 07:28 - Subjective Subjective: PGY-[address] Mcghee. Patient seen and evaluated at bedside. Patient's only complaint is that she would like to go back home. Patient noted to be wearing custom shoes dirty with cat urine and feces. As per nurse, refused to have them cleaned. Denies chest pain, shortness of breath, abdominal pain, nausea, vomiting, fever and chills. Objective - Vital Signs/Intake and Output Vital Signs (last 24 hours): Temp Pulse Resp BP Pulse Ox 98 F 84 20 103/65 97 01/11/18 00:00 01/11/18 00:00 01/11/18 00:00 01/11/18 00:00 01/11/18 00:00 - Medications Medications: Current Medications Dextrose (Dextrose 50% Inj) 0 ml IV STAT PRN; Protocol PRN Reason: Hypoglycemia Protocol Dextrose (Glutose 15) 0 gm PO ONCE PRN; Protocol PRN Reason: Hypoglycemia Protocol Ferrous Sulfate (Feosol) 325 mg PO DAILY [facility] Last Admin: 01/10/18 09:03 Dose: 325 mg Glucagon (Glucagen Diagnostic Kit) 0 mg IM STAT PRN; Protocol PRN Reason: Hypoglycemia Protocol Insulin Human Regular (Novolin R) 0 unit SC ACHS [facility] PRN Reason: Protocol Last Admin: 01/10/18 21:44 Dose: Not Given Lorazepam (Ativan) 1 mg IVP Q6H PRN PRN Reason: Agitation Multivitamins (Hexavitamin) 1 tab PO DAILY [facility] Last Admin: 01/10/18 09:03 Dose: 1 tab Nystatin (Nystop Topical Powder) 1 applic TOP BID [facility] Stop: 01/21/18 18:01 Last Admin: 01/10/18 17:11 Dose: 1 applic Pantoprazole Sodium (Protonix Ec Tab) 40 mg PO DAILY [facility] Last Admin: 01/10/18 09:03 Dose: 40 mg Paroxetine HCl (Paxil) 20 mg PO DAILY [facility] Last Admin: 01/10/18 09:03 Dose: 20 mg Rivaroxaban (Xarelto) 15 mg PO BID [facility] Last Admin: 01/10/18 17:10 Dose: 15 mg Rosuvastatin Calcium (Crestor) 10 mg PO HS [facility] Last Admin: 01/10/18 21:12 Dose: 10 mg - Labs Labs: 01/10/18 07:34 01/11/18 06:52 PT 17.8 SECONDS (9.7-12.2) H 01/08/18 10:31 INR 1.6 01/08/18 10:31 APTT 35 SECONDS (21-34) H 01/08/18 10:31 - Constitutional Appears: No Acute Distress, Other (Patient wearing custom shoes dirty of cat feces) - Head Exam Head Exam: ATRAUMATIC, NORMOCEPHALIC - Eye Exam Eye Exam: EOMI - ENT Exam ENT Exam: Mucous Membranes Moist - Respiratory Exam Respiratory Exam: Clear to Ausculation Bilateral, NORMAL BREATHING PATTERN. absent: Rales, Rhonchi, Wheezes - Cardiovascular Exam Cardiovascular Exam: REGULAR RHYTHM, +S1, +S2 - GI/Abdominal Exam GI & Abdominal Exam: Guarding, Rigid, Soft, Normal Bowel Sounds. absent: Tenderness - Extremities Exam Extremities Exam: Pedal Edema (trace bilaterally). absent: Calf Tenderness - Neurological Exam Neurological Exam: Alert, Awake - Psychiatric Exam Psychiatric exam: Anxious Assessment and Plan - Assessment and Plan (Free Text) Plan: Social Issues/Failure to thrive/Self neglect Brought in by legal guardian for intermediate eval Case Management/SW referral for placement- termite exterminator helper placement pending Medicaid application submitted by her legal gardian PT/OT eval- will work with patient 3-5 times/ week for gait training and therapeutic exercise. Dispo recommendation: subacute rehab. Fall risk precaution Dr Figueroa, Psych consult - help appreciated - f/u recs Dementia Pt found oriented x 3, aware of context of admission CT Head (01/07/18): No acute intracranial pathologies CXR (01/07/18): NAD UA (01/07/18): WNL, No leuk esterase/nitrites; 3-5 Hyaline Casts EKG (01/07/18): NSR @ 72 bpm, Normal axis, No acute ST/T wave changes Troponin negative x 1 Not currently on medication Perineal Fungal infection Nystatin topical powder BID x 14 days (January 07-) Dehydration 1 liter of LR completed-> mucous membranes noted to be moist following IVF Hypercholesterolemia Pt taking Lipitor 20mg PO HS at home - Substitute Crestor 10mg PO HS (Lipitor Non-formulary) lipid panel: TG 65, CHL 228, LDL 123, HDL 61 A1C: 5.5 Hx DVT [place] [facility] [place] - pt unsure[place] Restart home Xarelto 15mg PO BID venous doppler-No evidence of superficial or deep vein thrombosis Hx of Afib Listed on PMD chart Not in Afib on EKG at admission Restart home Xarelto 15mg PO BID Metoprolol Succinate 12.5 PO daily Questionable Hx of Chronic CHF Documented by Patient PMD, Dr. Niño ECHO 01/08: EF 65-70%. Normal systolic and diastolic function (see full report) R/o Rhabdomyolosis CPK WNL LR @ 100cc/hr for 1 Liter-> completed Anxiety/Depression Ativan 2mg IV once in ED Ativan 1mg IV Q6H PRN for agitation Restart home Paxil 20mg PO Daily Dr Figueroa, Psych consult - help appreciated - f/u reccs Hallux Valgus/Gait dysfunction Pt wearing orthotic shoes with heel lifts-> shoes dirty, attempt to clean PT/OT - uses walker at home Fall risk precaution Elevated AST-normalized Slight AST elevation at admission monitor 01/08 AST: 33 WNL Elevated INR- downtrending INR 2.0 on admission 01/08 repeat: PT 17.8, INR 1.6, aPTT 35 Hx of anemia Continue home Feosol 325mg PO Daily at home Hgb 13.1 on admission HTN Listed on PMD chart, though pt not on antihypertensive at home no hypertensive bp's since admission started on Metoprolol Succinate 12.5 for Afib Type Two Diabetes Mellitus Listed on PMD chart, Dr. Niño Pt on no diabetes medications at home GREG Accmarcel ACHS A1C: 5.5 DM neuropathy Pt not on home medications Vitamin D Deficiency Vit D level: 31.3 WNL Prophylaxis Protonix 40mg PO Daily Heart healthy diet venous dopplers negative, SCDs ordered PT/OT eval- patient unsteady and at risk for falls, will work with patient 3-5 times/ week for gait training and therapeutic exercise. Dispo recommendation: subacute rehab. SW/Case Management working on long-term placement pending Medicaid application approval Palliative Care consult, [place] Pt state appointed legal guardian - Femi Martinez Phone number: [phone] Pt may not sign out AMA per conversation Pt noted to have dirty shoes on in the morning. This afternoon, patient agitated and refused to have shoes washed. <Michelle Mcghee V - Last Filed: 01/11/18 22:40> Objective - Vital Signs/Intake and Output Vital Signs (last 24 hours): Temp Pulse Resp BP Pulse Ox 98.1 F 68 20 99/63 L 99 01/11/18 08:14 01/11/18 08:14 01/11/18 08:14 01/11/18 08:14 01/11/18 08:14 Intake and Output: 01/11/18 01/11/18 06:59 18:59 Intake Total 700 Balance 700 - Medications Medications: Current Medications Ferrous Sulfate (Feosol) 325 mg PO DAILY [facility] Last Admin: 01/11/18 11:42 Dose: 325 mg Lorazepam (Ativan) 1 mg IVP Q6H PRN PRN Reason: Agitation Metoprolol Succinate (Toprol Xl) 12.5 mg PO Q24H [facility] Last Admin: 01/11/18 14:55 Dose: Not Given Multivitamins (Hexavitamin) 1 tab PO DAILY [facility] Last Admin: 01/11/18 11:42 Dose: 1 tab Nystatin (Nystop Topical Powder) 1 applic TOP BID [facility] Stop: 01/21/18 18:01 Last Admin: 01/11/18 11:44 Dose: 1 applic Pantoprazole Sodium (Protonix Ec Tab) 40 mg PO DAILY [facility] Last Admin: 01/11/18 11:42 Dose: 40 mg Paroxetine HCl (Paxil) 20 mg PO DAILY [facility] Last Admin: 01/11/18 11:42 Dose: 20 mg Rivaroxaban (Xarelto) 15 mg PO BID [facility] Last Admin: 01/11/18 11:42 Dose: 15 mg Rosuvastatin Calcium (Crestor) 10 mg PO HS [facility] Last Admin: 01/10/18 21:12 Dose: 10 mg - Labs Labs: 01/11/18 06:52 01/11/18 06:52 PT 17.8 SECONDS (9.7-12.2) H 01/08/18 10:31 INR 1.6 01/08/18 10:31 APTT 35 SECONDS (21-34) H 01/08/18 10:31 Attending/Attestation - Attestation I have personally seen and examined this patient.: Yes I have fully participated in the care of the patient.: Yes I have reviewed all pertinent clinical information, including history, physical exam and plan: Yes Notes (Text): ppatient seen, examined, and case discussed with medical device. Patient seen this morning speaking with occupational therapist. Patient has noted he eaten her breakfast seen at bedside. Patient is washed and cleaned. Patient's shoes noted are noted of dirty fecal matter we will check with nursing if they can be washed.Patient came in on admission covered in fecal matter. If not we will check with case management and her PMD to see if they can be replaced since they are quite filthy. We will need to follow-up with case management social work in terms of discharge planning. We are awaiting finalized psychiatry note for any recommendations. We'll continue to follow. Please note patient cannot AMA. 1). Self Neglect Assessment and Plan * Palliative care on board help appreciated * Patient has been inside of house for long time and is disconnected from the reality of outside world. She has no TV nor radio in the house. The unhealthy and filthy condition of her house become her norm, therefore patient is not able to understand why she had to be from her home and her cats * Separation anxiety, patient misses her cats * At risk for elopement; has strong desire to return to her cats * Patient is not able to make her own Medical decisions * Unsteady gait due to deformity of feet * Patient feels restricted as she is unable to ambulate without her ortho shoes * Cold intolerance * Psychiatry on board help appreciated * Psychiatry in draft awaiting recommendations * [facility] Net Developer Software Engineer C Lavinia and Social Workers Carlos Enrique and Arti are in contact with Guardian Femi Martinez ([phone]) whose office is working on obtaining Medicaid for patient and once obtained will decide [facility] placement for patient. Anneliese Hughes as of today patient referred to [facility] as requested state appointed a guardian. 2). Possible Dementia * NOT currently on any medications 3). Perineal Fungal Rash * As noted on exam at the time of admission 01/07/18 * Nystatin Powder BID through 01/21/18 * improving 4). Dehydration * Oral mucosa and nasal turbinates are now moist after LR x 1 liter * Bun/Cr are normal 5). Hx HLD * Crestor 10 mg PO HS 6). Hx DVT * Unspecified laterality * Venous Duplex of Bilateral LE shows NO evidence of DVT 7). Hx Atrial Fibrillation * NSR upon admitting EKG * Xarelto 15 mg PO BID * Toprol-XL 12.5 mg by mouth daily * 2D Echocardiogram: normal size L FLORIDALMA in RA RV,, nor normal LV wall motion thickness systolic diastolic function with ejection fraction 6570% normal aortic mitral LV and PV normal pressures and normal size 8).no CHF noted based on recent echo 9). R/O Rhabdomyolysis-->resolved * CK is normal * Patient given 1 liter of LR upon admission 10). Elevated AST-->esolved * This has now normalized 11). Hx Anxiety/Depression * Ativan 1 mg IV Q6H PRN * Paroxetine 20 mg PO 1x/day 12). Hallux Valgus Bilateral Feet/Gait Dysfunction * Uses can at home and heel lift in Right shoe * F/U PT/OT 13). Elevated INR on admission This is now normal 14). Hx Anemia likely Secondary to Iron Deficiency * Ferrous Sulfate 325 mg PO 1x/day * Hgb/Hct are now normal 15). Hx HTN * controlled * on low-dose beta beverley in light of history of atrial fibrillation 16). Hx DM 2 * Currently on NO medications * HgBA1C is 5.5 * RISS ACHS 17). Hx Diabetic Neuropathy * This is questionable as well: currently no medications and patient does not complain of any paresthesias 18). Hx Vitamin D Deficiency * Not on any medication * Vitamin D level is 31.3 19). Prophylaxis * SCDs * Patient is on Xarelto * PT/OT * Heart Healthy 2 gm Na Low Carb Diet * I did put in a physician communication note to see whether not patient's comp specialized shoes can be washed. They do smell like feces and she was found in feces for quite some time at time of admission. Disposition: needs Medicaid set up by the Office of Public Guardian and then [facility] placement.patient cannot leave AGAINST MEDICAL ADVICE.
[2018-01-11 07:31] LABS: BASO % 0.5 % (0.0-2.0); EOS # 0.3 K/uL (0.0-0.7); HEMOGLOBIN 12.2 g/dL (11.0-16.0); LYMPH # 2.3 K/uL (1.0-4.3); LYMPH % 23.7 % (20.0-40.0); MEAN CELL VOLUME 91.2 fL (81.0-99.0); MEAN CORPUSCULAR HEMOGLOBIN 31.5 pg (27.0-31.0); MEAN CORPUSCULAR HGB CONC 34.6 g/dL (33.0-37.0); MEAN PLATELET VOLUME 9.4 fL (7.2-11.7); MONO # 0.7 K/uL (0.0-0.8); MONO % 7.6 % (0.0-10.0); NEUT # 6.3 K/uL (1.8-7.0); NEUT % 65.2 % (50.0-75.0); RBC 3.87 Mil/uL (3.80-5.20); RED CELL DISTRIBUTION WIDTH 14.6 % (11.5-14.5); WHITE BLOOD COUNT 9.6 K/uL (4.8-10.8)
[2018-01-11] MEDS: (Novolin R) Insulin Human Regular 100 units/ml vial SC SCH (08:41)
[2018-01-11] MEDS: Multiple Vitamins Tab PO SCH (11:42)
[2018-01-11] MEDS: Pantoprazole 40 mg EC Tab PO SCH (11:42)
--- NOTE | 2018-01-11 13:08 | VASCLAB ---
Date of service: 01/08/2018 PROCEDURE: Lower Extremity Venous Duplex Exam. HISTORY: Pedal edema PRIORS: None. TECHNIQUE: Bilateral common femoral, femoral, popliteal and posterior tibial, peroneal and great saphenous veins were evaluated. Flow was assessed with color Doppler, compressibility, assessment of phasic flow and augmentation response. Report prepared by Christofer Gregory, BS, RVT FINDINGS: RIGHT: 1. Common Femoral Vein: 1.1. Compressibility - Fully compressible: Thrombus - None : Flow - Phasic: Augmentation -Normal: Reflux - None. 2. Femoral Vein: 2.1. Compressibility - Fully compressible: Thrombus - None : Flow - Phasic: Augmentation -Normal: Reflux - None. 3. Popliteal Vein: 3.1. Compressibility - Fully compressible: Thrombus - None : Flow - Phasic: Augmentation -Normal: Reflux - None. 4. Posterior Tibial Vein: 4.1. Compressibility - Fully compressible: Thrombus - None: Flow - Phasic: Augmentation -Normal: Reflux - None. 5. Peroneal Vein: 5.1. Compressibility - Fully compressible: Thrombus - None: Flow - Phasic: Augmentation -Normal: Reflux - None. 6. Great Saphenous Vein: 6.1. Compressibility - Fully compressible: Thrombus - None: Flow - Phasic: Augmentation - Normal: Reflux - None. LEFT: 1. Common Femoral Vein: 1.1. Compressibility - Fully compressible: Thrombus - None: Flow - Phasic: Augmentation -Normal: Reflux - None. 2. Femoral Vein: 2.1. Compressibility - Fully compressible: Thrombus - None: Flow - Phasic: Augmentation -Normal: Reflux - None. 3. Popliteal Vein: 3.1. Compressibility - Fully compressible: Thrombus - None : Flow - Phasic: Augmentation -Normal: Reflux - None. 4. Posterior Tibial Vein: 4.1. Compressibility - Fully compressible: Thrombus - None: Flow - Phasic: Augmentation -Normal: Reflux - None. 5. Peroneal Vein: 5.1. Compressibility - Fully compressible: Thrombus - None: Flow - Phasic: Augmentation -Normal: Reflux - None. 6. Great Saphenous Vein: 6.1. Compressibility - Fully compressible: Thrombus - None: Flow - Phasic: Augmentation - Normal: Reflux - None. OTHER FINDINGS: Right: None significant. Left: None significant. IMPRESSION: Right: No evidence of deep or superficial vein thrombosis of the right lower extremity. Normal valve function noted of the right side. Left: No evidence of deep or superficial vein thrombosis of the left lower extremity. Normal valve function noted of the left side.
[2018-01-11] MEDS: Metoprolol Succinate 12.5 mg XL Tab PO SCH (14:55)
--- NOTE | 2018-01-12 06:27 | CP.PCM.PN ---
<Fani Florian P - Last Filed: 01/13/18 00:43> Subjective - Date & Time of Evaluation Date of Evaluation: 01/12/18 Time of Evaluation: 06:21 - Subjective Subjective: PGY-[address] Mcghee. Patient seen and evaluated at bedside. Patient sitting in her chair with feet elevated, in no acute distress. Denies chest pain, shortness of breath, abdominal pain, nausea, vomiting, fever and chills. As per nurse, patient was agitated yesterday evening and was given Ativan 1mg PO, which improved her agitation. Patient noted to be wearing clean socks. Clinical partner states she cleaned patient's feet last night and took her shoes to be cleaned as well. Objective - Vital Signs/Intake and Output Vital Signs (last 24 hours): Temp Pulse Resp BP Pulse Ox 98.1 F 71 20 105/68 97 01/12/18 00:00 01/12/18 00:00 01/12/18 00:00 01/12/18 00:00 01/12/18 00:00 Intake and Output: 01/11/18 01/12/18 18:59 06:59 Intake Total 700 Balance 700 - Medications Medications: Current Medications Ferrous Sulfate (Feosol) 325 mg PO DAILY [facility] Last Admin: 01/11/18 11:42 Dose: 325 mg Lorazepam (Ativan) 1 mg IVP Q6H PRN PRN Reason: Agitation Metoprolol Succinate (Toprol Xl) 12.5 mg PO Q24H [facility] Last Admin: 01/11/18 14:55 Dose: Not Given Multivitamins (Hexavitamin) 1 tab PO DAILY [facility] Last Admin: 01/11/18 11:42 Dose: 1 tab Nystatin (Nystop Topical Powder) 1 applic TOP BID [facility] Stop: 01/21/18 18:01 Last Admin: 01/11/18 18:46 Dose: 1 applic Pantoprazole Sodium (Protonix Ec Tab) 40 mg PO DAILY [facility] Last Admin: 01/11/18 11:42 Dose: 40 mg Paroxetine HCl (Paxil) 20 mg PO DAILY [facility] Last Admin: 01/11/18 11:42 Dose: 20 mg Rivaroxaban (Xarelto) 15 mg PO BID [facility] Last Admin: 01/11/18 18:46 Dose: 15 mg Rosuvastatin Calcium (Crestor) 10 mg PO [facility] Last Admin: 01/11/18 21:40 Dose: 10 mg - Labs Labs: 01/11/18 06:52 01/11/18 06:52 PT 17.8 SECONDS (9.7-12.2) H 01/08/18 10:31 INR 1.6 01/08/18 10:31 APTT 35 SECONDS (21-34) H 01/08/18 10:31 - Additional Findings Additional findings: - Constitutional Appears: No Acute Distress - Head Exam Head Exam: ATRAUMATIC, NORMOCEPHALIC - Eye Exam Eye Exam: EOMI - ENT Exam ENT Exam: Mucous Membranes Moist - Respiratory Exam Respiratory Exam: Clear to Ausculation Bilateral, NORMAL BREATHING PATTERN. absent: Rales, Rhonchi, Wheezes - Cardiovascular Exam Cardiovascular Exam: REGULAR RHYTHM, +S1, +S2 - GI/Abdominal Exam GI & Abdominal Exam: Guarding, Rigid, Soft, Normal Bowel Sounds. absent: Tenderness - Extremities Exam Extremities Exam: Pedal Edema (bilaterally). absent: Calf Tenderness. Patient wearing clean socks. L leg noted to be longer than R. - Neurological Exam Neurological Exam: Alert, Awake Assessment and Plan - Assessment and Plan (Free Text) Plan: Social Issues/Failure to thrive/Self neglect Brought in by legal guardian for fdc eval Case Management/SW referral for placement- terminal operations supervisor placement pending Medicaid application submitted by her legal gardian PT/OT eval- will work with patient 3-5 times/ week for gait training and therapeutic exercise. Dispo recommendation: subacute rehab. Fall risk precaution Dr iFgueroa, Psych consult - help appreciated - f/u recs Dementia Pt found oriented x 3, aware of context of admission CT Head (01/07/18): No acute intracranial pathologies CXR (01/07/18): NAD UA (01/07/18): WNL, No leuk esterase/nitrites; 3-5 Hyaline Casts EKG (01/07/18): NSR @ 72 bpm, Normal axis, No acute ST/T wave changes Troponin negative x 1 Not currently on medication Perineal Fungal infection Nystatin topical powder BID x 14 days (January 07-) Dehydration 1 liter of LR completed-> mucous membranes noted to be moist following IVF Hypercholesterolemia Pt taking Lipitor 20mg PO HS at home - Substitute Crestor 10mg PO HS (Lipitor Non-formulary) lipid panel: TG 65, CHL 228, LDL 123, HDL 61 A1C: 5.5 Hx DVT Record request sent to [facility] [place] (pt admission in 2014 or 2015 - pt unsure) Restart home Xarelto 15mg PO BID venous doppler-No evidence of superficial or deep vein thrombosis Hx of Afib Listed on PMD chart Not in Afib on EKG at admission Restart home Xarelto 15mg PO BID Metoprolol Succinate 12.5 PO daily Questionable Hx of Chronic CHF Documented by Patient PMD, Dr. Niño ECHO 01/08: EF 65-70%. Normal systolic and diastolic function (see full report) R/o Rhabdomyolosis CPK WNL LR @ 100cc/hr for 1 Liter-> completed Anxiety/Depression Ativan 2mg IV once in ED Ativan 1mg IV Q6H PRN for agitation Restart home Paxil 20mg PO Daily Dr Figueroa, Psych consult - help appreciated - f/u reccs Hallux Valgus/Gait dysfunction Pt wearing orthotic shoes with heel lifts-> shoes dirty, attempt to clean PT/OT - uses walker at home Fall risk precaution Elevated AST-normalized Slight AST elevation at admission monitor 01/08 AST: 33 WNL Elevated INR- downtrending INR 2.0 on admission 01/08 repeat: PT 17.8, INR 1.6, aPTT 35 Hx of anemia Continue home Feosol 325mg PO Daily at home Hgb 13.1 on admission HTN Listed on PMD chart, though pt not on antihypertensive at home no hypertensive bp's since admission started on Metoprolol Succinate 12.5 for Afib Type Two Diabetes Mellitus Listed on PMD chart, Dr. Niño Pt on no diabetes medications at home GREG Montoya ACHS A1C: 5.5 DM neuropathy Pt not on home medications Vitamin D Deficiency Vit D level: 31.3 WNL Prophylaxis Protonix 40mg PO Daily Heart healthy diet venous dopplers negative, SCDs ordered PT/OT eval- patient unsteady and at risk for falls, will work with patient 3-5 times/ week for gait training and therapeutic exercise. Dispo recommendation: subacute rehab. SW/Case Management working on long-term placement pending Medicaid application approval Palliative Care consult, Oralia Pt state appointed legal guardian - Femi Michelle Phone number: [phone] Pt may not sign out AMA per conversation Pt wearing clean socks today. Called [employer] to have pt's new custom shoes sent to hospital- was told it is against policy to ship to hospitals. Will attempt to call again. Awaiting psych recs will contact again tomorrow. <Michelle Mcghee V - Last Filed: 01/13/18 04:46> Objective - Vital Signs/Intake and Output Vital Signs (last 24 hours): Temp Pulse Resp BP Pulse Ox 98.7 F 86 20 100/60 96 01/12/18 23:44 01/12/18 23:44 01/12/18 23:44 01/12/18 23:44 01/12/18 23:44 - Medications Medications: Current Medications Ferrous Sulfate (Feosol) 325 mg PO DAILY [facility] Last Admin: 01/12/18 09:01 Dose: 325 mg Lorazepam (Ativan) 1 mg IVP Q6H PRN PRN Reason: Agitation Metoprolol Succinate (Toprol Xl) 12.5 mg PO Q24H [facility] Last Admin: 01/12/18 14:33 Dose: Not Given Multivitamins (Hexavitamin) 1 tab PO DAILY [facility] Last Admin: 01/12/18 09:02 Dose: 1 tab Nystatin (Nystop Topical Powder) 1 applic TOP BID [facility] Stop: 01/21/18 18:01 Last Admin: 01/12/18 18:01 Dose: 1 applic Pantoprazole Sodium (Protonix Ec Tab) 40 mg PO DAILY [facility] Last Admin: 01/12/18 09:01 Dose: 40 mg Paroxetine HCl (Paxil) 20 mg PO DAILY [facility] Last Admin: 01/12/18 09:01 Dose: 20 mg Rivaroxaban (Xarelto) 15 mg PO BID [facility] Last Admin: 01/12/18 18:02 Dose: 15 mg Rosuvastatin Calcium (Crestor) 10 mg PO HS [facility] Last Admin: 01/12/18 21:29 Dose: 10 mg - Labs Labs: 01/12/18 06:44 01/12/18 06:44 PT 17.8 SECONDS (9.7-12.2) H 01/08/18 10:31 INR 1.6 01/08/18 10:31 APTT 35 SECONDS (21-34) H 01/08/18 10:31 Attending/Attestation - Attestation I have personally seen and examined this patient.: Yes I have fully participated in the care of the patient.: Yes I have reviewed all pertinent clinical information, including history, physical exam and plan: Yes Notes (Text): This is late computer entry for 01/12/18. Patient seen, examined, and case discussed with medical transcription. Patient seen this morning. Patient reports she is very concerned about her shoes. They are apparently being delivered to her apartment; she has provided the number of the company to us. We will call to confirm. Resident has also confirmed that patient's shoes and feet were cleaned given the malodorous footwear stemming from the circumstances that brought her into the hospital. I have spoken with the behavioral health case manager, her shoes are secured away. We will need to follow-up with case management social work in terms of discharge planning, which is dependent on the behavioral health case manager. Patient is tolerating low dose beta beverley started yesterday. We are awaiting finalized psychiatry note for any recommendations. We'll continue to follow. Please note patient cannot AMA. 1). Self Neglect Assessment and Plan * Palliative care on board help appreciated * Patient has been inside of house for long time and is disconnected from the reality of outside world. She has no TV nor radio in the house. The unhealthy and filthy condition of her house become her norm, therefore patient is not able to understand why she had to be from her home and her cats * Separation anxiety, patient misses her cats * At risk for elopement; has strong desire to return to her cats * Patient is not able to make her own Medical decisions * Unsteady gait due to deformity of feet * Patient feels restricted as she is unable to ambulate without her ortho shoes * Cold intolerance * Psychiatry on board help appreciated * Psychiatry in draft awaiting recommendations * [facility] Internal Control Analyst Lavinia and Social Workers Carlos Enrique and Arti are in contact with Guardian Femi Martinez ([phone]) whose office is working on obtaining Medicaid for patient and once obtained will decide intermediate placement for patient. Anneliese Hughes as of today patient referred to Lisset Dumont as requested state appointed a guardian. 2). Possible Dementia * NOT currently on any medications 3). Perineal Fungal Rash * As noted on exam at the time of admission 01/07/18 * Nystatin Powder BID through 01/21/18 * improving 4). Dehydration * Oral mucosa and nasal turbinates are now moist after LR x 1 liter * Bun/Cr are normal 5). Hx HLD * Crestor 10 mg PO HS 6). Hx DVT * Unspecified laterality * Venous Duplex of Bilateral LE shows NO evidence of DVT 7). Hx Atrial Fibrillation * NSR upon admitting EKG * Xarelto 15 mg PO BID * Toprol-XL 12.5 mg by mouth daily * 2D Echocardiogram: normal size L FLORIDALMA in RA RV,, nor normal LV wall motion thickness systolic diastolic function with ejection fraction 6570% normal aortic mitral LV and PV normal pressures and normal size 8).no CHF noted based on recent echo 9). R/O Rhabdomyolysis-->resolved * CK is normal * Patient given 1 liter of LR upon admission 10). Elevated AST-->esolved * This has now normalized 11). Hx Anxiety/Depression * Ativan 1 mg IV Q6H PRN * Paroxetine 20 mg PO 1x/day 12). Hallux Valgus Bilateral Feet/Gait Dysfunction * Uses can at home and heel lift in Right shoe * F/U PT/OT 13). Elevated INR on admission This is now normal 14). Hx Anemia likely Secondary to Iron Deficiency * Ferrous Sulfate 325 mg PO 1x/day * Hgb/Hct are now normal 15). Hx HTN * controlled * on low-dose beta beverley in light of history of atrial fibrillation 16). Hx DM 2 * Currently on NO medications * HgBA1C is 5.5 * RISS ACHS 17). Hx Diabetic Neuropathy * This is questionable as well: currently no medications and patient does not complain of any paresthesias 18). Hx Vitamin D Deficiency * Not on any medication * Vitamin D level is 31.3 19). Prophylaxis * SCDs * Patient is on Xarelto * PT/OT * Heart Healthy 2 gm Na Low Carb Diet * specialized shoes washed and secured away; patient pending possible shoe delivery to home; we will follow up. Disposition: needs Medicaid set up by the Office of Public Guardian and then intermediate placement.patient cannot leave AGAINST MEDICAL ADVICE.
[2018-01-12 07:32] LABS: BASO # 0.1 K/uL (0.0-0.2); BASO % 0.9 % (0.0-2.0); EOS # 0.3 K/uL (0.0-0.7); EOS % 2.9 % (0.0-4.0); HEMOGLOBIN 12.4 g/dL (11.0-16.0); LYMPH # 2.5 K/uL (1.0-4.3); LYMPH % 26.8 % (20.0-40.0); MEAN CELL VOLUME 91.4 fL (81.0-99.0); MEAN CORPUSCULAR HEMOGLOBIN 31.3 pg (27.0-31.0); MEAN CORPUSCULAR HGB CONC 34.3 g/dL (33.0-37.0); MEAN PLATELET VOLUME 9.6 fL (7.2-11.7); MONO # 0.6 K/uL (0.0-0.8); MONO % 6.1 % (0.0-10.0); NEUT # 5.9 K/uL (1.8-7.0); NEUT % 63.3 % (50.0-75.0); NRBC % 0.2 % (0.0-2.0); RBC 3.97 Mil/uL (3.80-5.20); RED CELL DISTRIBUTION WIDTH 14.6 % (11.5-14.5); WHITE BLOOD COUNT 9.3 K/uL (4.8-10.8)
[2018-01-12 08:22] LABS: ALB/GLOB RATIO 1.3 (1.0-2.1); ALBUMIN 3.9 g/dL (3.5-5.0); ALT/SGPT 24 U/L (9-52); AST/SGOT 33 U/L (14-36); BLOOD UREA NITROGEN 23 mg/dL (7-17); CALCIUM 9.1 mg/dl (8.6-10.4); GFR AFRICAN-AMERICAN > 60; GFR NON-AFRICAN AMERICAN > 60
[2018-01-12] MEDS: Pantoprazole 40 mg EC Tab PO SCH (09:01)
[2018-01-12] MEDS: Multiple Vitamins Tab PO SCH (09:02)
[2018-01-12] MEDS: Metoprolol Succinate 12.5 mg XL Tab PO SCH (14:33)
[2018-01-13 07:20] LABS: BASO # 0.1 K/uL (0.0-0.2); BASO % 0.8 % (0.0-2.0); EOS # 0.2 K/uL (0.0-0.7); EOS % 2.5 % (0.0-4.0); HEMOGLOBIN 12.3 g/dL (11.0-16.0); LYMPH # 2.3 K/uL (1.0-4.3); LYMPH % 25.8 % (20.0-40.0); MEAN CELL VOLUME 92.2 fL (81.0-99.0); MEAN CORPUSCULAR HEMOGLOBIN 31.3 pg (27.0-31.0); MEAN PLATELET VOLUME 9.4 fL (7.2-11.7); MONO # 0.7 K/uL (0.0-0.8); MONO % 7.8 % (0.0-10.0); NEUT # 5.5 K/uL (1.8-7.0); NEUT % 63.1 % (50.0-75.0); NRBC % 0.1 % (0.0-2.0); RBC 3.91 Mil/uL (3.80-5.20); RED CELL DISTRIBUTION WIDTH 14.7 % (11.5-14.5); WHITE BLOOD COUNT 8.7 K/uL (4.8-10.8)
[2018-01-13 07:34] LABS: ALB/GLOB RATIO 1.3 (1.0-2.1); ALT/SGPT 24 U/L (9-52); AST/SGOT 23 U/L (14-36); BLOOD UREA NITROGEN 25 mg/dL (7-17); CALCIUM 9.3 mg/dl (8.6-10.4); GFR AFRICAN-AMERICAN > 60; GFR NON-AFRICAN AMERICAN > 60
[2018-01-13] MEDS: Pantoprazole 40 mg EC Tab PO SCH (10:06)
[2018-01-13] MEDS: Multiple Vitamins Tab PO SCH (10:06)
[2018-01-13] MEDS: Metoprolol Succinate 12.5 mg XL Tab PO SCH (14:14)
--- NOTE | 2018-01-13 23:19 | CP.PCM.PN ---
<Fani Florian P - Last Filed: 01/13/18 23:14> Subjective - Date & Time of Evaluation Date of Evaluation: 01/13/18 Time of Evaluation: 09:15 - Subjective Subjective: PGY-1 Medicine note for doctor Taz. Patient seen and evaluated at bedside. Patient is upset, expresses concern about her cats and wishes to be with them. Has no physical complains at this time. Denies chest pain, shortness of breath, abdominal pain, nausea, vomiting, diarrhea, fever, chills, and headache. Objective - Vital Signs/Intake and Output Vital Signs (last 24 hours): Temp Pulse Resp BP Pulse Ox 97.7 F 72 20 94/60 L 96 01/13/18 15:00 01/13/18 15:00 01/13/18 15:00 01/13/18 15:00 01/13/18 15:00 Intake and Output: 01/13/18 01/14/18 18:59 06:59 Intake Total 300 350 Balance 300 350 - Medications Medications: Current Medications Ferrous Sulfate (Feosol) 325 mg PO DAILY [facility] Last Admin: 01/13/18 10:06 Dose: 325 mg Lorazepam (Ativan) 1 mg IVP Q6H PRN PRN Reason: Agitation Metoprolol Succinate (Toprol Xl) 12.5 mg PO Q24H [facility] Last Admin: 01/13/18 14:14 Dose: 12.5 mg Multivitamins (Hexavitamin) 1 tab PO DAILY [facility] Last Admin: 01/13/18 10:06 Dose: 1 tab Nystatin (Nystop Topical Powder) 1 applic TOP BID [facility] Stop: 01/21/18 18:01 Last Admin: 01/13/18 18:55 Dose: 1 applic Pantoprazole Sodium (Protonix Ec Tab) 40 mg PO DAILY [facility] Last Admin: 01/13/18 10:06 Dose: 40 mg Paroxetine HCl (Paxil) 20 mg PO DAILY [facility] Last Admin: 01/13/18 10:06 Dose: 20 mg Rivaroxaban (Xarelto) 15 mg PO BID [facility] Last Admin: 01/13/18 18:55 Dose: 15 mg Rosuvastatin Calcium (Crestor) 10 mg PO HS [facility] Last Admin: 01/13/18 21:35 Dose: 10 mg - Labs Labs: 01/13/18 06:42 01/13/18 06:42 PT 17.8 SECONDS (9.7-12.2) H 01/08/18 10:31 INR 1.6 01/08/18 10:31 APTT 35 SECONDS (21-34) H 01/08/18 10:31 - Additional Findings Additional findings: - Constitutional Appears: No Acute Distress - Head Exam Head Exam: ATRAUMATIC, NORMOCEPHALIC - Eye Exam Eye Exam: EOMI - ENT Exam ENT Exam: Mucous Membranes Moist - Respiratory Exam Respiratory Exam: Clear to Ausculation Bilateral, NORMAL BREATHING PATTERN. absent: Rales, Rhonchi, Wheezes - Cardiovascular Exam Cardiovascular Exam: REGULAR RHYTHM, +S1, +S2 - GI/Abdominal Exam GI & Abdominal Exam: Guarding, Rigid, Soft, Normal Bowel Sounds. absent: Tenderness - Extremities Exam Extremities Exam: Pedal Edema (trace bilaterally). absent: Calf Tenderness. Patient wearing clean socks. L leg noted to be longer than R. - Neurological Exam Neurological Exam: Alert, Awake Assessment and Plan - Assessment and Plan (Free Text) Plan: Failure to thrive/Self neglect Brought in by legal guardian for long term eval Case Management/SW referral for placement- senior care placement pending Medicaid application submitted by her legal gardian PT/OT eval- will work with patient 3-5 times/ week for gait training and therapeutic exercise. Dispo recommendation: subacute rehab. Fall risk precaution Psych consulted - help appreciated - awaiting recommendations Dementia Pt found oriented x 3, aware of context of admission CT Head (01/07/18): No acute intracranial pathologies CXR (01/07/18): NAD UA (01/07/18): WNL, No leuk esterase/nitrites; 3-5 Hyaline Casts EKG (01/07/18): NSR @ 72 bpm, Normal axis, No acute ST/T wave changes Troponin negative x 1 Not currently on medication Perineal Fungal infection Nystatin topical powder BID x 14 days (January 07-) Dehydration-improved 1 liter of LR completed-> mucous membranes noted to be moist following IVF Hypercholesterolemia Pt taking Lipitor 20mg PO HS at home - Substitute Crestor 10mg PO HS (Lipitor Non-formulary) lipid panel: TG 65, CHL 228, LDL 123, HDL 61 A1C: 5.5 Hx DVT Record request sent to [facility] [place] (pt admission in 2014 or 2016 - pt unsure) Restart home Xarelto 15mg PO BID venous doppler-No evidence of superficial or deep vein thrombosis Hx of Afib Listed on PMD chart Not in Afib on EKG at admission Restart home Xarelto 15mg PO BID Metoprolol Succinate 12.5 PO daily Questionable Hx of Chronic CHF Documented by Patient PMD, Dr. Niño ECHO 01/08: EF 65-70%. Normal systolic and diastolic function (see full report) R/o Rhabdomyolosis CPK WNL LR @ 100cc/hr for 1 Liter-> completed Anxiety/Depression Ativan 2mg IV once in ED Ativan 1mg IV Q6H PRN for agitation Restart home Paxil 20mg PO Daily Psych consulted - help appreciated - awaiting recommendations Hallux Valgus/Gait dysfunction Pt wearing orthotic shoes with heel lifts-> shoes dirty, attempt to clean PT/OT - uses walker at home Fall risk precaution Elevated AST-normalized Slight AST elevation at admission monitor 01/08 AST: 33 WNL Elevated INR- downtrending INR 2.0 on admission 01/08 repeat: PT 17.8, INR 1.6, aPTT 35 Hx of anemia Continue home Feosol 325mg PO Daily at home Hgb 13.1 on admission HTN Listed on PMD chart, though pt not on antihypertensive at home no hypertensive bp's since admission started on Metoprolol Succinate 12.5 for Afib HLD Crestor 10mg PO HS Type Two Diabetes Mellitus Listed on PMD chart, Dr. Niño Pt on no diabetes medications at home GREG Montoya ACHS A1C: 5.5 DM neuropathy Pt not on home medications Vitamin D Deficiency Vit D level: 31.3 WNL Prophylaxis Protonix 40mg PO Daily Heart healthy diet venous dopplers negative, SCDs ordered PT/OT eval- patient unsteady and at risk for falls, will work with patient 3-5 times/ week for gait training and therapeutic exercise. Dispo recommendation: subacute rehab. SW/Case Management working on long-term placement pending Medicaid application approval Palliative Care consult, Oralia Pt state appointed legal guardian - Femi Martinez Phone number: [phone] Pt may not sign out AMA per conversation Case management attempting to have pt's custom shoes delivered to her PMDs office. Pt's BP today 90-100/60s, continue to monitor. Left a message for Dr. Gambino regarding Psych recs, will follow up. <Michelle Mcghee V - Last Filed: 01/16/18 15:27> Objective - Vital Signs/Intake and Output Vital Signs (last 24 hours): Temp Pulse Resp BP Pulse Ox 98.1 F 76 20 111/58 L 98 01/16/18 08:00 01/16/18 08:00 01/16/18 08:00 01/16/18 08:00 01/16/18 08:00 Intake and Output: 01/16/18 01/16/18 06:59 18:59 Intake Total 500 400 Balance 500 400 - Medications Medications: Current Medications Ferrous Sulfate (Feosol) 325 mg PO DAILY [facility] Last Admin: 01/16/18 10:03 Dose: 325 mg Lorazepam (Ativan) 1 mg IM Q6H PRN PRN Reason: Anxiety Lorazepam (Ativan) 1 mg PO Q6 PRN PRN Reason: Agitation Last Admin: 01/15/18 17:39 Dose: 1 mg Metoprolol Succinate (Toprol Xl) 12.5 mg PO Q24H [facility] Last Admin: 01/16/18 13:39 Dose: Not Given Multivitamins (Hexavitamin) 1 tab PO DAILY [facility] Last Admin: 01/16/18 10:03 Dose: 1 tab Nystatin (Nystop Topical Powder) 1 applic TOP BID [facility] Stop: 01/21/18 18:01 Last Admin: 01/16/18 10:02 Dose: 1 applic Pantoprazole Sodium (Protonix Ec Tab) 40 mg PO DAILY [facility] Last Admin: 01/16/18 10:03 Dose: 40 mg Paroxetine HCl (Paxil) 20 mg PO DAILY [facility] Last Admin: 01/16/18 10:03 Dose: 20 mg Rivaroxaban (Xarelto) 15 mg PO BID [facility] Last Admin: 01/16/18 10:02 Dose: 15 mg Rosuvastatin Calcium (Crestor) 10 mg PO HS [facility] Last Admin: 01/15/18 21:35 Dose: 10 mg - Labs Labs: 01/15/18 08:12 01/15/18 08:12 PT 17.8 SECONDS (9.7-12.2) H 01/08/18 10:31 INR 1.6 01/08/18 10:31 APTT 35 SECONDS (21-34) H 01/08/18 10:31 Attending/Attestation - Attestation I have personally seen and examined this patient.: Yes I have fully participated in the care of the patient.: Yes I have reviewed all pertinent clinical information, including history, physical exam and plan: Yes Notes (Text): This is late computer entry for 01/13/2018. Patient seen, examined, case discussed with medical accounting clerk. Patient seen in the afternoon. Patient reports great concern for her cats which is why she wants to leave. I've indicated to her that I'm not sure what the status of her cats which is caused her great agitation. We'll need to follow-up with psych in terms of any further recommendations. I spoke with case and social and probably the cats are alive and being cared for by a friend. I've also spoken to case in regards to patient specialized boots and to see if it's possible to the committee brought to PMDs office and that they can be brought here to the hospital. We will continue to follow. patient will not let me do a full physical examination on her. 1). Self Neglect Assessment and Plan * Palliative care on board help appreciated * Patient has been inside of house for long time and is disconnected from the reality of outside world. She has no TV nor radio in the house. The unhealthy and filthy condition of her house become her norm, therefore patient is not able to understand why she had to be from her home and her cats * Separation anxiety, patient misses her cats * At risk for elopement; has strong desire to return to her cats * Patient is not able to make her own Medical decisions * Unsteady gait due to deformity of feet * Patient feels restricted as she is unable to ambulate without her ortho shoes * Cold intolerance * Psychiatry on board help appreciated * Psychiatry in draft awaiting recommendations * [facility] Clerical Clerk Lavinia and Social Workers Carlos Enrique and Arti are in contact with Guardian Femi Martinez ([phone]) whose office is working on obtaining Medicaid for patient and once obtained will decide box spring maker placement for patient. Anneliese Hughes as of today patient referred to Lisset Dumont as requested state appointed a guardian. 2). Possible Dementia * NOT currently on any medications 3). Perineal Fungal Rash * As noted on exam at the time of admission 01/07/18 * Nystatin Powder BID through 01/21/18 * improving 4). Dehydration * Oral mucosa and nasal turbinates are now moist after LR x 1 liter * Bun/Cr are normal 5). Hx HLD * Crestor 10 mg PO HS 6). Hx DVT * Unspecified laterality * Venous Duplex of Bilateral LE shows NO evidence of DVT * Xarelto 15 mg PO BID 7). Hx Atrial Fibrillation * NSR upon admitting EKG * Xarelto 15 mg PO BID * Toprol-XL 12.5 mg by mouth daily * 2D Echocardiogram: normal size L FLORIDALMA in RA RV,, nor normal LV wall motion thickness systolic diastolic function with ejection fraction 6570% normal aortic mitral LV and PV normal pressures and normal size 8). no CHF noted based on recent echo 9). R/O Rhabdomyolysis-->resolved * CK is normal * Patient given 1 liter of LR upon admission 10). Elevated AST-->esolved * This has now normalized 11). Hx Anxiety/Depression * Ativan 1 mg IM Q6H PRN * Ativan 1 mg PO q6H PRN * Paroxetine 20 mg PO 1x/day 12). Hallux Valgus Bilateral Feet/Gait Dysfunction * Uses can at home and heel lift in Right shoe * F/U PT/OT 13). Elevated INR on admission This is now normal 14). Hx Anemia likely Secondary to Iron Deficiency * Ferrous Sulfate 325 mg PO 1x/day * Hgb/Hct are now normal 15). Hx HTN * controlled * on low-dose beta beverley in light of history of atrial fibrillation 16). Hx DM 2 * Currently on NO medications * HgBA1C is 5.5 * RISS ACHS 17). Hx Diabetic Neuropathy * This is questionable as well: currently no medications and patient does not complain of any paresthesias 18). Hx Vitamin D Deficiency * Not on any medication * Vitamin D level is 31.3 19). Prophylaxis * SCDs * Patient is on Xarelto * PT/OT * Heart Healthy 2 gm Na Low Carb Diet * specialized shoes washed and secured away; patient pending possible shoe delivery to home; we will follow up. Disposition: f/u with case and social work
[2018-01-14] MEDS: Pantoprazole 40 mg EC Tab PO SCH (09:54)
[2018-01-14] MEDS: Multiple Vitamins Tab PO SCH (09:55)
[2018-01-14] MEDS: Metoprolol Succinate 12.5 mg XL Tab PO SCH (13:49)
[2018-01-15 08:20] LABS: HEMOGLOBIN 11.7 g/dL (11.0-16.0); RED CELL DISTRIBUTION WIDTH 14.6 % (11.5-14.5)
[2018-01-15 08:26] LABS: BASO # 0.1 K/uL (0.0-0.2); EOS # 0.2 K/uL (0.0-0.7); EOS % 2.9 % (0.0-4.0); LYMPH # 2.1 K/uL (1.0-4.3); LYMPH % 25.8 % (20.0-40.0); MEAN CORPUSCULAR HEMOGLOBIN 31.3 pg (27.0-31.0); MEAN PLATELET VOLUME 9.1 fL (7.2-11.7); MONO # 0.6 K/uL (0.0-0.8); MONO % 8.2 % (0.0-10.0); NEUT # 4.9 K/uL (1.8-7.0); NEUT % 62.1 % (50.0-75.0); NRBC % 0.1 % (0.0-2.0); RBC 3.74 Mil/uL (3.80-5.20); WHITE BLOOD COUNT 7.9 K/uL (4.8-10.8)
[2018-01-15 08:41] LABS: ALB/GLOB RATIO 1.4 (1.0-2.1); ALBUMIN 3.8 g/dL (3.5-5.0); ALT/SGPT 24 U/L (9-52); AST/SGOT 21 U/L (14-36); BLOOD UREA NITROGEN 17 mg/dL (7-17); CALCIUM 9.1 mg/dl (8.6-10.4); GFR AFRICAN-AMERICAN > 60; GFR NON-AFRICAN AMERICAN > 60
[2018-01-15] MEDS: Pantoprazole 40 mg EC Tab PO SCH (10:25)
[2018-01-15] MEDS: Multiple Vitamins Tab PO SCH (10:25)
[2018-01-15] MEDS: Metoprolol Succinate 12.5 mg XL Tab PO SCH (14:24)
--- NOTE | 2018-01-15 22:54 | CP.PCM.PN ---
<Fani Florian P - Last Filed: 01/15/18 23:18> Subjective - Date & Time of Evaluation Date of Evaluation: 01/15/18 Time of Evaluation: 09:00 - Subjective Subjective: PGY-[address] Mcghee. Patient seen and evaluated at bed side. States she has an outpatient appointment with her salon stylist coming up and would like to have foot care and her usual toe clipping. Patient has no physical complaints at this time. Denies shortness of breath, chest pain, fever, chills, headache, nausea, vomiting, abdominal pain. Objective - Vital Signs/Intake and Output Vital Signs (last 24 hours): Temp Pulse Resp BP Pulse Ox 98.8 F 75 20 103/59 L 96 01/15/18 15:44 01/15/18 15:44 01/15/18 15:44 01/15/18 15:44 01/15/18 15:44 - Medications Medications: Current Medications Ferrous Sulfate (Feosol) 325 mg PO DAILY [facility] Last Admin: 01/15/18 10:25 Dose: 325 mg Lorazepam (Ativan) 1 mg IM Q6H PRN PRN Reason: Anxiety Lorazepam (Ativan) 1 mg PO Q6 PRN PRN Reason: Agitation Last Admin: 01/15/18 17:39 Dose: 1 mg Metoprolol Succinate (Toprol Xl) 12.5 mg PO Q24H [facility] Last Admin: 01/15/18 14:24 Dose: Not Given Multivitamins (Hexavitamin) 1 tab PO DAILY [facility] Last Admin: 01/15/18 10:25 Dose: 1 tab Nystatin (Nystop Topical Powder) 1 applic TOP BID [facility] Stop: 01/21/18 18:01 Last Admin: 01/15/18 17:41 Dose: Not Given Pantoprazole Sodium (Protonix Ec Tab) 40 mg PO DAILY [facility] Last Admin: 01/15/18 10:25 Dose: 40 mg Paroxetine HCl (Paxil) 20 mg PO DAILY [facility] Last Admin: 01/15/18 10:26 Dose: 20 mg Rivaroxaban (Xarelto) 15 mg PO BID [facility] Last Admin: 01/15/18 17:39 Dose: 15 mg Rosuvastatin Calcium (Crestor) 10 mg PO HS [facility] Last Admin: 01/15/18 21:35 Dose: 10 mg - Labs Labs: 01/15/18 08:12 01/15/18 08:12 PT 17.8 SECONDS (9.7-12.2) H 01/08/18 10:31 INR 1.6 01/08/18 10:31 APTT 35 SECONDS (21-34) H 01/08/18 10:31 - Additional Findings Additional findings: - Constitutional Appears: No Acute Distress - Head Exam Head Exam: ATRAUMATIC, NORMOCEPHALIC - Eye Exam Eye Exam: EOMI - ENT Exam ENT Exam: Mucous Membranes Moist - Respiratory Exam Respiratory Exam: Clear to Ausculation Bilateral, NORMAL BREATHING PATTERN. absent: Rales, Rhonchi, Wheezes - Cardiovascular Exam Cardiovascular Exam: REGULAR RHYTHM, +S1, +S2 - GI/Abdominal Exam GI & Abdominal Exam: Guarding, Rigid, Soft, Normal Bowel Sounds. absent: Tenderness - Extremities Exam Extremities Exam: Pedal Edema (trace bilaterally). absent: Calf Tenderness. Patient wearing clean socks. L leg noted to be longer than R. - Neurological Exam Neurological Exam: Alert, Awake. Patient's mood noted to be more stable today. -Skin Fungal infection resolved Assessment and Plan - Assessment and Plan (Free Text) Plan: Failure to thrive/Self neglect Brought in by legal guardian for prison eval Case Management/SW referral for placement- manager long term care placement pending Medicaid application submitted by her legal gardian PT/OT eval- will work with patient 3-5 times/ week for gait training and therapeutic exercise. Dispo recommendation: subacute rehab. Fall risk precaution Psych consulted - help appreciated - awaiting recommendations Dementia Pt found oriented x 3, aware of context of admission CT Head (01/07/18): No acute intracranial pathologies CXR (01/07/18): NAD UA (01/07/18): WNL, No leuk esterase/nitrites; 3-5 Hyaline Casts EKG (01/07/18): NSR @ 72 bpm, Normal axis, No acute ST/T wave changes Troponin negative x 1 Not currently on medication Perineal Fungal infection-resolved Nystatin topical powder BID x 14 days (January 07-) Dehydration-improved 1 liter of LR completed-> mucous membranes noted to be moist following IVF Hypercholesterolemia Pt taking Lipitor 20mg PO HS at home - Substitute Crestor 10mg PO HS (Lipitor Non-formulary) lipid panel: TG 65, CHL 228, LDL 123, HDL 61 A1C: 5.5 Hx DVT Record request sent to [facility] (pt admission in 2014 or 2015 - pt unsure) Restart home Xarelto 15mg PO BID venous doppler-No evidence of superficial or deep vein thrombosis Hx of Afib Listed on PMD chart Not in Afib on EKG at admission Restart home Xarelto 15mg PO BID Metoprolol Succinate 12.5 PO daily Questionable Hx of Chronic CHF Documented by Patient PMD, Dr. Niño ECHO 01/08: EF 65-70%. Normal systolic and diastolic function (see full report) R/o Rhabdomyolosis CPK WNL LR @ 100cc/hr for 1 Liter-> completed Anxiety/Depression Ativan 2mg IV once in ED Ativan 1mg IV Q6H PRN for agitation Restart home Paxil 20mg PO Daily Psych consulted - help appreciated - awaiting recommendations Hallux Valgus/Gait dysfunction Pt wearing orthotic shoes with heel lifts-> shoes dirty, attempt to clean PT/OT - uses walker at home Fall risk precaution Elevated AST-normalized Slight AST elevation at admission monitor 01/08 AST: 33 WNL Elevated INR- downtrending INR 2.0 on admission 01/08 repeat: PT 17.8, INR 1.6, aPTT 35 Hx of anemia Continue home Feosol 325mg PO Daily at home Hgb 13.1 on admission HTN Listed on PMD chart, though pt not on antihypertensive at home no hypertensive bp's since admission started on Metoprolol Succinate 12.5 for Afib HLD Crestor 10mg PO HS Type Two Diabetes Mellitus Listed on PMD chart, Dr. Niño Pt on no diabetes medications at home GREG Montoya ACHS A1C: 5.5 DM neuropathy Pt not on home medications Vitamin D Deficiency Vit D level: 31.3 WNL Prophylaxis Protonix 40mg PO Daily Heart healthy diet venous dopplers negative, SCDs ordered PT/OT eval- patient unsteady and at risk for falls, will work with patient 3-5 times/ week for gait training and therapeutic exercise. Dispo recommendation: subacute rehab. SW/Case Management working on long-term placement pending Medicaid application approval Palliative Care consult, [place] Pt state appointed legal guardian - Femi Martinez Phone number: [phone] Pt may not sign out AMA per conversation follow up with SW regarding medicaid application and manager long term care placement planning. Podiatry consulted. Awaiting Psych recs. <Michelle Mcghee V - Last Filed: 01/16/18 15:17> Objective - Vital Signs/Intake and Output Vital Signs (last 24 hours): Temp Pulse Resp BP Pulse Ox 98.1 F 76 20 111/58 L 98 01/16/18 08:00 01/16/18 08:00 01/16/18 08:00 01/16/18 08:00 01/16/18 08:00 Intake and Output: 01/16/18 01/16/18 06:59 18:59 Intake Total 500 Balance 500 - Medications Medications: Current Medications Ferrous Sulfate (Feosol) 325 mg PO DAILY [facility] Last Admin: 01/16/18 10:03 Dose: 325 mg Lorazepam (Ativan) 1 mg IM Q6H PRN PRN Reason: Anxiety Lorazepam (Ativan) 1 mg PO Q6 PRN PRN Reason: Agitation Last Admin: 01/15/18 17:39 Dose: 1 mg Metoprolol Succinate (Toprol Xl) 12.5 mg PO Q24H [facility] Last Admin: 01/16/18 13:39 Dose: Not Given Multivitamins (Hexavitamin) 1 tab PO DAILY [facility] Last Admin: 01/16/18 10:03 Dose: 1 tab Nystatin (Nystop Topical Powder) 1 applic TOP BID [facility] Stop: 01/21/18 18:01 Last Admin: 01/16/18 10:02 Dose: 1 applic Pantoprazole Sodium (Protonix Ec Tab) 40 mg PO DAILY [facility] Last Admin: 01/16/18 10:03 Dose: 40 mg Paroxetine HCl (Paxil) 20 mg PO DAILY [facility] Last Admin: 01/16/18 10:03 Dose: 20 mg Rivaroxaban (Xarelto) 15 mg PO BID [facility] Last Admin: 01/16/18 10:02 Dose: 15 mg Rosuvastatin Calcium (Crestor) 10 mg PO HS [facility] Last Admin: 01/15/18 21:35 Dose: 10 mg - Labs Labs: 01/15/18 08:12 01/15/18 08:12 PT 17.8 SECONDS (9.7-12.2) H 01/08/18 10:31 INR 1.6 01/08/18 10:31 APTT 35 SECONDS (21-34) H 01/08/18 10:31 Attending/Attestation - Attestation I have personally seen and examined this patient.: Yes I have fully participated in the care of the patient.: Yes I have reviewed all pertinent clinical information, including history, physical exam and plan: Yes Notes (Text): This is a late computer entry for 01/15/2018. Patient seen, examined, and case discussed with biomedical field service engineer. Patient is much calmer this morning. I did inform patient that her cats her pain care for by 10 other tendon in her building when I spoke with social sciences lecturer last. Patient did allow for a physical exam. Patient's fungal rash has improved. Patient reports that she would like her toenails cut. She does have a private salon stylist with diaper diabetes does not come to this hospital from my understanding. We will consult podiatry issues requested. I did speak with social and case later this afternoon. They have found a facility for the patient. However the limitation is that she will also need her specialize shoes at this facility. The [employer] that supplies issues could not deliver it to the facility patient has been consulted outpatient. Patient cannot go home given the social situations about her here. There is some type of penalty where in $150 paid to the the company. We will continue to follow the patient. I spoke with nurse and given patient's agitation and does not have IV access advised for appearance by mouth or IM Ativan. Apparently patient was causing such a raucous n the four-person room per nursing staff. 1). Self Neglect Assessment and Plan * Palliative care on board help appreciated * Patient has been inside of house for long time and is disconnected from the reality of outside world. She has no TV nor radio in the house. The unhealthy and filthy condition of her house become her norm, therefore patient is not able to understand why she had to be from her home and her cats * Separation anxiety, patient misses her cats * At risk for elopement; has strong desire to return to her cats * Patient is not able to make her own Medical decisions * Unsteady gait due to deformity of feet * Patient feels restricted as she is unable to ambulate without her ortho shoes * Cold intolerance * Psychiatry on board help appreciated * Psychiatry in draft awaiting recommendations * [facility] Boat Detailer Lavinia and Social Workers Carlos Enrique and Arti are in contact with Guardian Femi Yepezdeonna ([phone]) whose office is working on obtaining Medicaid for patient and once obtained will decide manager long term care placement for patient. Anneliese Hughes as of today patient referred to [facility] as requested state appointed a guardian. 2). Possible Dementia * NOT currently on any medications 3). Perineal Fungal Rash * As noted on exam at the time of admission 01/07/18 * Nystatin Powder BID through 01/21/18 * improving 4). Dehydration * Oral mucosa and nasal turbinates are now moist after LR x 1 liter * Bun/Cr are normal 5). Hx HLD * Crestor 10 mg PO HS 6). Hx DVT * Unspecified laterality * Venous Duplex of Bilateral LE shows NO evidence of DVT * Xarelto 15 mg PO BID 7). Hx Atrial Fibrillation * NSR upon admitting EKG * Xarelto 15 mg PO BID * Toprol-XL 12.5 mg by mouth daily * 2D Echocardiogram: normal size L FLORIDALMA in RA RV,, nor normal LV wall motion thickness systolic diastolic function with ejection fraction 6570% normal aortic mitral LV and PV normal pressures and normal size 8). no CHF noted based on recent echo 9). R/O Rhabdomyolysis-->resolved * CK is normal * Patient given 1 liter of LR upon admission 10). Elevated AST-->esolved * This has now normalized 11). Hx Anxiety/Depression * Ativan 1 mg IM Q6H PRN * Ativan 1 mg PO q6H PRN * Paroxetine 20 mg PO 1x/day 12). Hallux Valgus Bilateral Feet/Gait Dysfunction * Uses can at home and heel lift in Right shoe * F/U PT/OT 13). Elevated INR on admission This is now normal 14). Hx Anemia likely Secondary to Iron Deficiency * Ferrous Sulfate 325 mg PO 1x/day * Hgb/Hct are now normal 15). Hx HTN * controlled * on low-dose beta beverley in light of history of atrial fibrillation 16). Hx DM 2 * Currently on NO medications * HgBA1C is 5.5 * RISS ACHS 17). Hx Diabetic Neuropathy * This is questionable as well: currently no medications and patient does not complain of any paresthesias 18). Hx Vitamin D Deficiency * Not on any medication * Vitamin D level is 31.3 19). Prophylaxis * SCDs * Patient is on Xarelto * PT/OT * Heart Healthy 2 gm Na Low Carb Diet * specialized shoes washed and secured away; patient pending possible shoe delivery to home; we will follow up. Disposition: Patient accepted to [facility]. Patient has approval from state appointed guardian. Patient has specialized orthopedic shoes the cannot be worn due to extreme soil but will need shoes to rehab. Follow-up with state approved guardian and alternative ways to clean current shoes discussed by social work w major appliance assembly supervisor and manager line.
[2018-01-16] MEDS: Multiple Vitamins Tab PO SCH (10:03)
[2018-01-16] MEDS: Pantoprazole 40 mg EC Tab PO SCH (10:03)
--- NOTE | 2018-01-16 10:23 | CP.PCM.PN ---
Subjective - Date & Time of Evaluation Date of Evaluation: 01/16/18 Time of Evaluation: 10:23 Objective - Vital Signs/Intake and Output Vital Signs (last 24 hours): Temp Pulse Resp BP Pulse Ox 98.1 F 76 20 111/58 L 98 01/16/18 08:00 01/16/18 08:00 01/16/18 08:00 01/16/18 08:00 01/16/18 08:00 Intake and Output: 01/16/18 01/16/18 06:59 18:59 Intake Total 500 Balance 500 - Medications Medications: Current Medications Ferrous Sulfate (Feosol) 325 mg PO DAILY [facility] Last Admin: 01/16/18 10:03 Dose: 325 mg Lorazepam (Ativan) 1 mg IM Q6H PRN PRN Reason: Anxiety Lorazepam (Ativan) 1 mg PO Q6 PRN PRN Reason: Agitation Last Admin: 01/15/18 17:39 Dose: 1 mg Metoprolol Succinate (Toprol Xl) 12.5 mg PO Q24H [facility] Last Admin: 01/15/18 14:24 Dose: Not Given Multivitamins (Hexavitamin) 1 tab PO DAILY [facility] Last Admin: 01/16/18 10:03 Dose: 1 tab Nystatin (Nystop Topical Powder) 1 applic TOP BID [facility] Stop: 01/21/18 18:01 Last Admin: 01/16/18 10:02 Dose: 1 applic Pantoprazole Sodium (Protonix Ec Tab) 40 mg PO DAILY [facility] Last Admin: 01/16/18 10:03 Dose: 40 mg Paroxetine HCl (Paxil) 20 mg PO DAILY [facility] Last Admin: 01/16/18 10:03 Dose: 20 mg Rivaroxaban (Xarelto) 15 mg PO BID [facility] Last Admin: 01/16/18 10:02 Dose: 15 mg Rosuvastatin Calcium (Crestor) 10 mg PO HS [facility] Last Admin: 01/15/18 21:35 Dose: 10 mg - Labs Labs: 01/15/18 08:12 01/15/18 08:12 PT 17.8 SECONDS (9.7-12.2) H 01/08/18 10:31 INR 1.6 01/08/18 10:31 APTT 35 SECONDS (21-34) H 01/08/18 10:31
--- NOTE | 2018-01-16 11:38 | CP.PCM.CON ---
History of Present Illness - History of Present Illness History of Present Illness: Podiatry Consult Note - Dr. Marks 67F PMHx dementia, depression/anxiety, hypercholesterolemia seen and examined this AM for thickened, elongated nails. Patient resting comfortably OOB in chair , hemodynamically stable and NAD. Patient states she sees a federal appellate law clerk on an outpatient basis for routine nail care; states she is unable to trim them herself. Pt offers no other pedal complaints. Denies N/V/F/D/C/SOB. Review of Systems - Review of Systems All systems: reviewed and no additional remarkable complaints except (as per HPI ) Past Patient History - Past Medical History & Family History Past Medical History?: Yes - Past Social History Smoking Status: Never Smoked - CARDIAC Hx Hypercholesterolemia: Yes - NEUROLOGICAL Hx Dementia: Yes - MUSCULOSKELETAL/RHEUMATOLOGICAL Hx Falls: Yes - PSYCHIATRIC Hx Substance Use: No - ANESTHESIA Hx Anesthesia: No Meds Allergies/Adverse Reactions: Allergies Allergy/AdvReac Type Severity Reaction Status Date / Time No Known Allergies Allergy Verified 01/07/18 12:12 - Medications Medications: Current Medications Ferrous Sulfate (Feosol) 325 mg PO DAILY [facility] Last Admin: 01/16/18 10:03 Dose: 325 mg Lorazepam (Ativan) 1 mg IM Q6H PRN PRN Reason: Anxiety Lorazepam (Ativan) 1 mg PO Q6 PRN PRN Reason: Agitation Last Admin: 01/15/18 17:39 Dose: 1 mg Metoprolol Succinate (Toprol Xl) 12.5 mg PO Q24H [facility] Last Admin: 01/15/18 14:24 Dose: Not Given Multivitamins (Hexavitamin) 1 tab PO DAILY [facility] Last Admin: 01/16/18 10:03 Dose: 1 tab Nystatin (Nystop Topical Powder) 1 applic TOP BID [facility] Stop: 01/21/18 18:01 Last Admin: 01/16/18 10:02 Dose: 1 applic Pantoprazole Sodium (Protonix Ec Tab) 40 mg PO DAILY [facility] Last Admin: 01/16/18 10:03 Dose: 40 mg Paroxetine HCl (Paxil) 20 mg PO DAILY [facility] Last Admin: 01/16/18 10:03 Dose: 20 mg Rivaroxaban (Xarelto) 15 mg PO BID [facility] Last Admin: 01/16/18 10:02 Dose: 15 mg Rosuvastatin Calcium (Crestor) [address] [facility] Last Admin: 01/15/18 21:35 Dose: 10 mg Physical Exam - Constitutional Appears: Well, Non-toxic, No Acute Distress - Head Exam Head Exam: ATRAUMATIC, NORMAL INSPECTION, NORMOCEPHALIC - Eye Exam Eye Exam: EOMI, Normal appearance Pupil Exam: NORMAL ACCOMODATION - ENT Exam ENT Exam: Mucous Membranes Moist, Normal Exam - Neck Exam Neck exam: Positive for: Normal Inspection - Respiratory Exam Respiratory Exam: NORMAL BREATHING PATTERN. absent: Respiratory Distress - Cardiovascular Exam Cardiovascular Exam: REGULAR RHYTHM - Extremities Exam Extremities exam: Positive for: normal capillary refill, pedal edema, tenderness. Negative for: calf tenderness Additional comments: DP/PT pulses nonpalpable b/l. CFT <3 seconds to digits x10 Nails 1-5 b/l are thickened, elongated, dystrophic, and black in color - pain on palpation to nails Contracted digits 2-5 b/l non-reducible - pain on palpation to digits 2-5 b/l Severe HAV deformity b/l Results - Vital Signs Recent Vital Signs: Last Vital Signs Temp 98.1 F 01/16/18 08:00 Pulse 76 01/16/18 08:00 Resp 20 01/16/18 08:00 BP 111/58 L 01/16/18 08:00 Pulse Ox 98 01/16/18 08:00 - Labs Result Diagrams: 01/15/18 08:12 01/15/18 08:12 Labs: Laboratory Results - last 24 hr 01/15/18 01/15/18 01/15/18 12:07 16:27 21:07 POC Glucose (mg/dL) 97 110 90 01/16/18 07:33 POC Glucose (mg/dL) 88 Assessment & Plan - Assessment and Plan (Free Text) Assessment: 67F with onychomycosis Plan: Patient seen and evaluated Discussed with attending, Dr. Marks Nails 1-5 b/l debrided in thickness and length w/o incident LE stable at this time Podiatry will sign off, please reconsult as needed Thank you for the consult
[2018-01-16] MEDS: Metoprolol Succinate 12.5 mg XL Tab PO SCH (13:39)
[2018-01-17] MEDS: Multiple Vitamins Tab PO SCH (09:58)
[2018-01-17] MEDS: Pantoprazole 40 mg EC Tab PO SCH (09:59)
[2018-01-17] MEDS: Metoprolol Succinate 12.5 mg XL Tab PO SCH (13:35)
[2018-01-18 07:30] LABS: BASO % 0.5 % (0.0-2.0); EOS # 0.2 K/uL (0.0-0.7); EOS % 2.3 % (0.0-4.0); HEMOGLOBIN 12.2 g/dL (11.0-16.0); LYMPH # 2.2 K/uL (1.0-4.3); LYMPH % 25.5 % (20.0-40.0); MEAN CELL VOLUME 92.5 fL (81.0-99.0); MEAN CORPUSCULAR HEMOGLOBIN 31.6 pg (27.0-31.0); MEAN CORPUSCULAR HGB CONC 34.1 g/dL (33.0-37.0); MONO # 0.7 K/uL (0.0-0.8); MONO % 8.2 % (0.0-10.0); NEUT # 5.6 K/uL (1.8-7.0); NEUT % 63.5 % (50.0-75.0); RBC 3.85 Mil/uL (3.80-5.20); RED CELL DISTRIBUTION WIDTH 14.9 % (11.5-14.5); WHITE BLOOD COUNT 8.8 K/uL (4.8-10.8)
[2018-01-18 08:16] LABS: ALB/GLOB RATIO 1.3 (1.0-2.1); ALBUMIN 3.8 g/dL (3.5-5.0); ALT/SGPT 26 U/L (9-52); AST/SGOT 26 U/L (14-36); BLOOD UREA NITROGEN 26 mg/dL (7-17); GFR AFRICAN-AMERICAN > 60; GFR NON-AFRICAN AMERICAN > 60
[2018-01-18] MEDS: Pantoprazole 40 mg EC Tab PO SCH (10:58)
[2018-01-18] MEDS: Multiple Vitamins Tab PO SCH (10:58)
[2018-01-18] MEDS: Metoprolol Succinate 12.5 mg XL Tab PO SCH (14:23)
--- NOTE | 2018-01-18 22:40 | CP.PCM.PN ---
<Fani Florian P - Last Filed: 01/18/18 22:34> Subjective - Date & Time of Evaluation Date of Evaluation: 01/18/18 Time of Evaluation: 09:00 - Subjective Subjective: PGY-1 medicine note for Hospitalist service. Patient seen and examined at bedside. Patient is sitting comfortably in her chair next to the window. Has no complaints at this time. Denies fever, chills, headache, nausea, vomiting, abdominal pain, diarrhea, chest pain, and shortness of breath. Objective - Vital Signs/Intake and Output Vital Signs (last 24 hours): Temp Pulse Resp BP Pulse Ox 98.7 F 79 20 97/52 L 98 01/18/18 16:11 01/18/18 16:11 01/18/18 16:11 01/18/18 16:11 01/18/18 16:11 - Medications Medications: Current Medications Ferrous Sulfate (Feosol) 325 mg PO DAILY [facility] Last Admin: 01/18/18 10:58 Dose: 325 mg Lorazepam (Ativan) 1 mg IM Q6H PRN PRN Reason: Anxiety Lorazepam (Ativan) 1 mg PO Q6 PRN PRN Reason: Agitation Last Admin: 01/18/18 14:22 Dose: 1 mg Metoprolol Succinate (Toprol Xl) 12.5 mg PO Q24H [facility] Last Admin: 01/18/18 14:23 Dose: Not Given Multivitamins (Hexavitamin) 1 tab PO DAILY [facility] Last Admin: 01/18/18 10:58 Dose: 1 tab Nystatin (Nystop Topical Powder) 1 applic TOP BID [facility] Stop: 01/21/18 18:01 Last Admin: 01/18/18 22:26 Dose: 1 applic Pantoprazole Sodium (Protonix Ec Tab) 40 mg PO DAILY [facility] Last Admin: 01/18/18 10:58 Dose: 40 mg Paroxetine HCl (Paxil) 20 mg PO DAILY [facility] Last Admin: 01/18/18 10:58 Dose: 20 mg Rivaroxaban (Xarelto) 15 mg PO BID [facility] Last Admin: 01/18/18 17:49 Dose: 15 mg Rosuvastatin Calcium (Crestor) 10 mg PO HS [facility] Last Admin: 01/18/18 21:57 Dose: 10 mg - Labs Labs: 01/18/18 06:59 01/18/18 06:59 PT 17.8 SECONDS (9.7-12.2) H 01/08/18 10:31 INR 1.6 01/08/18 10:31 APTT 35 SECONDS (21-34) H 01/08/18 10:31 - Constitutional Appears: No Acute Distress - Head Exam Head Exam: ATRAUMATIC, NORMOCEPHALIC - Eye Exam Eye Exam: EOMI, Normal appearance - ENT Exam ENT Exam: Mucous Membranes Moist - Neck Exam Neck Exam: Full ROM, Normal Inspection - Respiratory Exam Respiratory Exam: Clear to Ausculation Bilateral. absent: Rales, Rhonchi, Wheezes - Cardiovascular Exam Cardiovascular Exam: REGULAR RHYTHM, +S1, +S2 - GI/Abdominal Exam GI & Abdominal Exam: Soft, Normal Bowel Sounds. absent: Firm, Guarding, Tenderness - Extremities Exam Extremities Exam: absent: Joint Swelling, Pedal Edema, Tenderness Additional comments: leg length discrepency, L longer than R. - Neurological Exam Neurological Exam: Alert, Awake - Psychiatric Exam Psychiatric exam: Normal Mood - Skin Skin Exam: Dry, Normal Color, Warm Assessment and Plan - Assessment and Plan (Free Text) Plan: Failure to thrive/Self neglect Brought in by legal guardian for fdc eval Case Management/SW referral for placement- terminal supervisor placement pending Medicaid application submitted by her legal gardian PT/OT eval- will work with patient 3-5 times/ week for gait training and therapeutic exercise. Dispo recommendation: subacute rehab. Fall risk precaution Psych consulted - help appreciated - awaiting recommendations Dementia Pt found oriented x 3, aware of context of admission CT Head (01/07/18): No acute intracranial pathologies CXR (01/07/18): NAD UA (01/07/18): WNL, No leuk esterase/nitrites; 3-5 Hyaline Casts EKG (01/07/18): NSR @ 72 bpm, Normal axis, No acute ST/T wave changes Troponin negative x 1 Not currently on medication Perineal Fungal infection-resolved Nystatin topical powder BID x 14 days (January 07-) Dehydration-improved 1 liter of LR completed-> mucous membranes noted to be moist following IVF Hypercholesterolemia Pt taking Lipitor 20mg PO HS at home - Substitute Crestor 10mg PO HS (Lipitor Non-formulary) lipid panel: TG 65, CHL 228, LDL 123, HDL 61 A1C: 5.5 Hx DVT Record request sent to [facility] (pt admission in 2014 or 2015 - pt unsure) Restart home Xarelto 15mg PO BID venous doppler-No evidence of superficial or deep vein thrombosis Hx of Afib Listed on PMD chart Not in Afib on EKG at admission Restart home Xarelto 15mg PO BID Metoprolol Succinate 12.5 PO daily Questionable Hx of Chronic CHF Documented by Patient PMD, Dr. Niño ECHO 01/08: EF 65-70%. Normal systolic and diastolic function (see full report) R/o Rhabdomyolosis CPK WNL LR @ 100cc/hr for 1 Liter-> completed Anxiety/Depression Ativan 2mg IV once in ED Ativan 1mg IV Q6H PRN for agitation Restart home Paxil 20mg PO Daily Psych consulted - help appreciated - awaiting recommendations Hallux Valgus/Gait dysfunction Pt wearing orthotic shoes with heel lifts-> shoes dirty, attempt to clean PT/OT - uses walker at home Fall risk precaution Elevated AST-normalized Slight AST elevation at admission monitor 01/08 AST: 33 WNL Elevated INR- downtrending INR 2.0 on admission 01/08 repeat: PT 17.8, INR 1.6, aPTT 35 Hx of anemia Continue home Feosol 325mg PO Daily at home Hgb 13.1 on admission HTN Listed on PMD chart, though pt not on antihypertensive at home no hypertensive bp's since admission started on Metoprolol Succinate 12.5 for Afib HLD Crestor 10mg PO HS Type Two Diabetes Mellitus Listed on PMD chart, Dr. Niño Pt on no diabetes medications at home GREG Accsocratesecks ACHS A1C: 5.5 DM neuropathy Pt not on home medications Vitamin D Deficiency Vit D level: 31.3 WNL Prophylaxis Protonix 40mg PO Daily Heart healthy diet venous dopplers negative, SCDs ordered PT/OT eval- patient unsteady and at risk for falls, will work with patient 3-5 times/ week for gait training and therapeutic exercise. Dispo recommendation: subacute rehab. SW/Case Management working on long-term placement pending Medicaid application approval Palliative Care consult, [place] Pt state appointed legal guardian - Femi Martinez Phone number: [phone] Pt may not sign out AMA per conversation Patient has placement at [facility]. Patient cannot pay for new shoes of $150. SW attempting to salvage her old shoes before being discharged; shoes were washed in a washing machine x2 today with some improvement. <Chase Young - Last Filed: 01/20/18 12:56> Objective - Vital Signs/Intake and Output Vital Signs (last 24 hours): Temp Pulse Resp BP Pulse Ox 98.0 F 72 20 102/57 L 99 01/20/18 07:19 01/20/18 07:19 01/20/18 07:19 01/20/18 07:19 01/20/18 07:19 Intake and Output: 01/20/18 01/20/18 06:59 18:59 Intake Total 200 500 Balance 200 500 - Medications Medications: Current Medications Ferrous Sulfate (Feosol) 325 mg PO DAILY [facility] Last Admin: 01/20/18 10:39 Dose: 325 mg Lorazepam (Ativan) 1 mg IM Q6H PRN PRN Reason: Anxiety Lorazepam (Ativan) 1 mg PO Q6 PRN PRN Reason: Agitation Last Admin: 01/18/18 14:22 Dose: 1 mg Metoprolol Succinate (Toprol Xl) 12.5 mg PO Q24H [facility] Last Admin: 01/19/18 13:21 Dose: 12.5 mg Multivitamins (Hexavitamin) 1 tab PO DAILY [facility] Last Admin: 01/20/18 10:38 Dose: 1 tab Nystatin (Nystop Topical Powder) 1 applic TOP BID [facility] Stop: 01/21/18 18:01 Last Admin: 01/20/18 10:39 Dose: Not Given Pantoprazole Sodium (Protonix Ec Tab) 40 mg PO DAILY [facility] Last Admin: 01/20/18 10:39 Dose: 40 mg Paroxetine HCl (Paxil) 20 mg PO DAILY [facility] Last Admin: 01/20/18 10:39 Dose: 20 mg Pneumococcal Polyvalent Vaccine (Pneumovax 23 Vaccine) 0.5 ml IM .ONCE ONE Stop: 01/20/18 12:53 Rivaroxaban (Xarelto) 15 mg PO BID [facility] Last Admin: 01/20/18 10:38 Dose: 15 mg Rosuvastatin Calcium (Crestor) 10 mg PO HS [facility] Last Admin: 01/19/18 21:18 Dose: 10 mg - Labs Labs: 01/18/18 06:59 01/18/18 06:59 PT 17.8 SECONDS (9.7-12.2) H 01/08/18 10:31 INR 1.6 01/08/18 10:31 APTT 35 SECONDS (21-34) H 01/08/18 10:31 Attending/Attestation - Attestation I have personally seen and examined this patient.: Yes I have fully participated in the care of the patient.: Yes I have reviewed all pertinent clinical information, including history, physical exam and plan: Yes Notes (Text): 01/20/18 12:55 This is a late entry. Patient was seen and examined at 9 AM 01/18/18. Exam, assessment and plan were gone over with the resident. Chase Young D.O.
[2018-01-19] MEDS: Pantoprazole 40 mg EC Tab PO SCH (10:03)
[2018-01-19] MEDS: Multiple Vitamins Tab PO SCH (10:03)
[2018-01-19] MEDS: Metoprolol Succinate 12.5 mg XL Tab PO SCH (13:21)
--- NOTE | 2018-01-19 19:29 | CP.PCM.DIS ---
<FlorianFani P - Last Filed: 01/19/18 21:04> Provider - Provider Date of Admission: 01/07/18 13:56 Attending physician: Chase Young MD Time Spent in preparation of Discharge (in minutes): 45 Diagnosis - Discharge Diagnosis (1) Failure to thrive Status: Acute (2) Unsatisfactory living conditions Status: Acute Hospital Course - Lab Results Lab Results: Most Recent Lab Values WBC 8.8 K/uL (4.8-10.8) 01/18/18 06:59 RBC 3.85 Mil/uL (3.80-5.20) 01/18/18 06:59 Hgb 12.2 g/dL (11.0-16.0) 01/18/18 06:59 Hct 35.6 % (34.0-47.0) 01/18/18 06:59 MCV 92.5 fL (81.0-99.0) 01/18/18 06:59 MCH 31.6 pg (27.0-31.0) H 01/18/18 06:59 MCHC 34.1 g/dL (33.0-37.0) 01/18/18 06:59 RDW 14.9 % (11.5-14.5) H 01/18/18 06:59 Plt Count 265 K/uL (130-400) 01/18/18 06:59 MPV 9.0 fL (7.2-11.7) 01/18/18 06:59 Neut % (Auto) 63.5 % (50.0-75.0) 01/18/18 06:59 Lymph % (Auto) 25.5 % (20.0-40.0) 01/18/18 06:59 [facility] % (Auto) 8.2 % (0.0-10.0) 01/18/18 06:59 Eos % (Auto) 2.3 % (0.0-4.0) 01/18/18 06:59 Baso % (Auto) 0.5 % (0.0-2.0) 01/18/18 06:59 Neut # (Auto) 5.6 K/uL (1.8-7.0) 01/18/18 06:59 Lymph # (Auto) 2.2 K/uL (1.0-4.3) 01/18/18 06:59 [facility] # (Auto) 0.7 K/uL (0.0-0.8) 01/18/18 06:59 Eos # (Auto) 0.2 K/uL (0.0-0.7) 01/18/18 06:59 Baso # (Auto) 0.0 K/uL (0.0-0.2) 01/18/18 06:59 PT 17.8 SECONDS (9.7-12.2) H 01/08/18 10:31 INR 1.6 01/08/18 10:31 APTT 35 SECONDS (21-34) H 01/08/18 10:31 Sodium 141 mmol/L (132-148) 01/18/18 06:59 Potassium 4.1 mmol/L (3.6-5.2) 01/18/18 06:59 Chloride 102 mmol/L (98-107) 01/18/18 06:59 Carbon Dioxide 29 mmol/L (22-30) 01/18/18 06:59 Anion Gap 15 (10-20) 01/18/18 06:59 BUN 26 mg/dL (7-17) H 01/18/18 06:59 Creatinine 0.8 mg/dL (0.7-1.2) 01/18/18 06:59 Est GFR ( Amer) > 60 01/18/18 06:59 Est GFR (Non-Af Amer) > 60 01/18/18 06:59 POC Glucose (mg/dL) 96 mg/dL (65-110) 01/19/18 16:17 Random Glucose 90 mg/dL (65-105) 01/18/18 06:59 Hemoglobin A1c 5.5 % (4.2-6.5) 01/08/18 07:18 Calcium 9.0 mg/dl (8.6-10.4) 01/18/18 06:59 Phosphorus 3.3 mg/dL (2.5-4.5) 01/08/18 08:41 Magnesium 2.1 mg/dL (1.6-2.3) 01/12/18 06:44 Total Bilirubin 0.5 mg/dL (0.2-1.3) 01/18/18 06:59 AST 26 U/L (14-36) 07/23/18 06:59 ALT 26 U/L (9-52) 01/18/18 06:59 Alkaline Phosphatase 73 U/L (38-126) 01/18/18 06:59 Total Creatine Kinase 57 U/L (30-135) 01/07/18 16:36 Troponin I < 0.0120 ng/mL (0.00-0.120) 01/07/18 13:13 Total Protein 6.8 g/dL (6.3-8.3) 01/18/18 06:59 Albumin 3.8 g/dL (3.5-5.0) 01/18/18 06:59 Globulin 2.9 gm/dL (2.2-3.9) 01/18/18 06:59 Albumin/Globulin Ratio 1.3 (1.0-2.1) 01/18/18 06:59 Triglycerides 65 mg/dL (0-149) 01/08/18 08:41 Cholesterol 228 mg/dL (0-199) H 01/08/18 08:41 LDL Cholesterol Direct 123 mg/dL (0-129) 01/08/18 08:41 HDL Cholesterol 61 mg/dL (30-70) 01/08/18 08:41 25-OH Vitamin D Total 31.3 NG/ML (30.0-100.0) 01/08/18 07:18 Free T4 1.34 ng/dL (0.78-2.19) 01/08/18 07:18 TSH 3rd Generation 1.94 mIU/L (0.46-4.68) 01/08/18 08:41 Urine Color Yellow (YELLOW) 01/07/18 16:05 Urine Clarity Hazy (Clear) 01/07/18 16:05 Urine pH 5.0 (5.0-8.0) 01/07/18 16:05 Ur Specific [place] 1.010 (1.003-1.030) 01/07/18 16:05 Urine Protein Negative mg/dL (NEGATIVE) 01/07/18 16:05 Urine Glucose (UA) Normal mg/dL (Normal) 01/07/18 16:05 Urine Ketones Negative mg/dL (NEGATIVE) 01/07/18 16:05 Urine Blood Negative (NEGATIVE) 01/07/18 16:05 Urine Nitrate Negative (NEGATIVE) 01/07/18 16:05 Urine Bilirubin Negative (NEGATIVE) 01/07/18 16:05 Urine Urobilinogen Normal mg/dL (0.2-1.0) 01/07/18 16:05 Ur Leukocyte Esterase Neg Shankar/uL (Negative) 01/07/18 16:05 Urine WBC (Auto) < 1 /hpf (0-5) 01/07/18 16:05 Urine RBC (Auto) < 1 /hpf (0-3) 01/07/18 16:05 Ur Squamous Epith Cells < 1 /hpf (0-5) 01/07/18 16:05 Urine Bacteria Rare (<OCC) 01/07/18 16:05 Hyaline Casts 3-5 /lpf (0-2) H 01/07/18 16:05 - Hospital Course Hospital Course: Patient is a 67 yo female, with PMHx of dementia, depression/anxiety, hypercholesterolemia, and DVT (listed on chart by PMD who presents to ED for social admission. Patient was brought to [facility] ED by state legal guardian. Reliability Technician/Legal Guardian at bedside, Femi Martinez, and offers further history. Patient found oriented x 3 (though unsure of today's date), and aware of context of admission. Guardian reports patient was living in "deplorable condition" - surrounded by animal feces/garbage. Patient was also only receiving nutrition via Meals on Wheels program once daily. Patient offers no medical complaints only stating "she is hungry." When questioned about dried blood on forehead patient states "she hit her head on the refrigerator two weeks ago." Patient denies syncope, falls at home. She uses rolling walker at home to ambulate. Denies chest pain, SOB, palpitations, abd pain, N/V/D/C, headache. Due to patient mental status review of medical records and patient PMD, Dr. Niño, aided in history gathering. Waiting for confirmatory documentation from Dr. Niño and [facility]. Hospitalization: Patient was admitted for failure to thrive and unsafe living conditions. Patient was evaluated and put on the necessary medications. She was seen by physical therapists, community recreation coordinator, pastoral care, psychiatrist and was kept clean. Social workers successfully obtained new orthopedic shoes for her to take with her to her new living facility, [facility]. Instructions: Patient is stable for discharge to [facility] as per Dr. Young. The following instructions will need to be provided to patient upon discharge: 1). Follow up with your primary care physician within one week of discharge. 2). Patient will resume the following medications. Please use them as directed: Feosol 325 mg PO daily Lorazepam 1mg PO Q6H PRN anxiety Metoprolol succinate 12.5 mg PO Q24H Multivitamins 1 tab PO daily Nystatin topical powder, apply topically to affected area twice daily until 01/21. Pantopraxole 40mg PO daily Paroxetine 20mg PO ddaily Xarelto 15mg PO BID Crestor 10mg PO HS 3). Do not skip meals and please remain well hydrated with water throughout the day. 6). For more information or decision making, please contact Pt's state appointed legal guardian - Femi Yepezewamercedes Phone number: [phone] This is a brief summary of hospitalization. For a full report, contact medical records. Discharge Exam - Head Exam Head Exam: ATRAUMATIC, NORMOCEPHALIC - Eye Exam Eye Exam: EOMI, Normal appearance Pupil Exam: NORMAL ACCOMODATION - ENT Exam ENT Exam: Mucous Membranes Moist - Respiratory Exam Respiratory Exam: Clear to PA & Lateral, NORMAL BREATHING PATTERN. absent: Rales, Rhonchi, Wheezes, Respiratory Distress - Cardiovascular Exam Cardiovascular Exam: REGULAR RHYTHM, +S1, +S2 - GI/Abdominal Exam GI & Abdominal Exam: Normal Bowel Sounds, Unremarkable. absent: Distended, Guarding, Pulsatile Mass - Exam Additional comments: fungal rash to perineum resolved. - Extremities Exam Extremities exam: pedal edema (trace) Additional comments: L leg longer than R - Neurological Exam Neurological exam: Alert, CN II-XII Intact - Psychiatric Exam Psychiatric exam: Anxious - Skin Skin Exam: Dry, Normal Color, Warm Discharge Plan - Follow Up Plan Condition: STABLE Disposition: REHAB FACILITY/REHAB UNIT Instructions: Failure to Thrive (DC) Additional Instructions: Patient is stable for discharge to [facility] as per Dr. Young. The following instructions will need to be provided to patient upon discharge: 1). Follow up with your primary care physician within one week of discharge. 2). Patient will resume the following medications. Please use them as directed: Feosol 325 mg PO daily Lorazepam 1mg PO Q6H PRN anxiety Metoprolol succinate 12.5 mg PO Q24H Multivitamins 1 tab PO daily Nystatin topical powder, apply topically to affected area twice daily until 01/21. Pantopraxole 40mg PO daily Paroxetine 20mg PO ddaily Xarelto 15mg PO BID Crestor 10mg PO HS 3). Do not skip meals and please remain well hydrated with water throughout the day. 6). For more information or decision making, please contact Pt's state appointed legal guardian - Femi Martinez Phone number: [phone] <Chase Young - Last Filed: 01/20/18 12:55> Provider - Provider Date of Admission: 01/07/18 13:56 Attending physician: Chase Young MD Hospital Course - Lab Results Lab Results: Most Recent Lab Values WBC 8.8 K/uL (4.8-10.8) 01/18/18 06:59 RBC 3.85 Mil/uL (3.80-5.20) 01/18/18 06:59 Hgb 12.2 g/dL (11.0-16.0) 01/18/18 06:59 Hct 35.6 % (34.0-47.0) 01/18/18 06:59 MCV 92.5 fL (81.0-99.0) 01/18/18 06:59 MCH 31.6 pg (27.0-31.0) H 01/18/18 06:59 MCHC 34.1 g/dL (33.0-37.0) 01/18/18 06:59 RDW 14.9 % (11.5-14.5) H 01/18/18 06:59 Plt Count 265 K/uL (130-400) 01/18/18 06:59 MPV 9.0 fL (7.2-11.7) 01/18/18 06:59 Neut % (Auto) 63.5 % (50.0-75.0) 01/18/18 06:59 Lymph % (Auto) 25.5 % (20.0-40.0) 01/18/18 06:59 [facility] % (Auto) 8.2 % (0.0-10.0) 01/18/18 06:59 Eos % (Auto) 2.3 % (0.0-4.0) 01/18/18 06:59 Baso % (Auto) 0.5 % (0.0-2.0) 01/18/18 06:59 Neut # (Auto) 5.6 K/uL (1.8-7.0) 01/18/18 06:59 Lymph # (Auto) 2.2 K/uL (1.0-4.3) 01/18/18 06:59 [facility] # (Auto) 0.7 K/uL (0.0-0.8) 01/18/18 06:59 Eos # (Auto) 0.2 K/uL (0.0-0.7) 01/18/18 06:59 Baso # (Auto) 0.0 K/uL (0.0-0.2) 01/18/18 06:59 PT 17.8 SECONDS (9.7-12.2) H 01/08/18 10:31 INR 1.6 01/08/18 10:31 APTT 35 SECONDS (21-34) H 01/08/18 10:31 Sodium 141 mmol/L (132-148) 01/18/18 06:59 Potassium 4.1 mmol/L (3.6-5.2) 01/18/18 06:59 Chloride 102 mmol/L (98-107) 01/18/18 06:59 Carbon Dioxide 29 mmol/L (22-30) 01/18/18 06:59 Anion Gap 15 (10-20) 01/18/18 06:59 BUN 26 mg/dL (7-17) H 01/18/18 06:59 Creatinine 0.8 mg/dL (0.7-1.2) 01/18/18 06:59 Est GFR ( Amer) > 60 01/18/18 06:59 Est GFR (Non-Af Amer) > 60 01/18/18 06:59 POC Glucose (mg/dL) 77 mg/dL (65-110) 01/20/18 07:14 Random Glucose 90 mg/dL (65-105) 01/18/18 06:59 Hemoglobin A1c 5.5 % (4.2-6.5) 01/08/18 07:18 Calcium 9.0 mg/dl (8.6-10.4) 01/18/18 06:59 Phosphorus 3.3 mg/dL (2.5-4.5) 01/08/18 08:41 Magnesium 2.1 mg/dL (1.6-2.3) 01/12/18 06:44 Total Bilirubin 0.5 mg/dL (0.2-1.3) 01/18/18 06:59 AST 26 U/L (14-36) 01/18/18 06:59 ALT 26 U/L (9-52) 01/18/18 06:59 Alkaline Phosphatase 73 U/L (38-126) 01/18/18 06:59 Total Creatine Kinase 57 U/L (30-135) 01/07/18 16:36 Troponin I < 0.0120 ng/mL (0.00-0.120) 01/07/18 13:13 Total Protein 6.8 g/dL (6.3-8.3) 01/18/18 06:59 Albumin 3.8 g/dL (3.5-5.0) 01/18/18 06:59 Globulin 2.9 gm/dL (2.2-3.9) 01/18/18 06:59 Albumin/Globulin Ratio 1.3 (1.0-2.1) 01/18/18 06:59 Triglycerides 65 mg/dL (0-149) 01/08/18 08:41 Cholesterol 228 mg/dL (0-199) H 01/08/18 08:41 LDL Cholesterol Direct 123 mg/dL (0-129) 01/08/18 08:41 HDL Cholesterol 61 mg/dL (30-70) 01/08/18 08:41 25-OH Vitamin D Total 31.3 NG/ML (30.0-100.0) 01/08/18 07:18 Free T4 1.34 ng/dL (0.78-2.19) 01/08/18 07:18 TSH 3rd Generation 1.94 mIU/L (0.46-4.68) 01/08/18 08:41 Urine Color Yellow (YELLOW) 01/07/18 16:05 Urine Clarity Hazy (Clear) 01/07/18 16:05 Urine pH 5.0 (5.0-8.0) 01/07/18 16:05 Ur Specific [place] 1.010 (1.003-1.030) 01/07/18 16:05 Urine Protein Negative mg/dL (NEGATIVE) 01/07/18 16:05 Urine Glucose (UA) Normal mg/dL (Normal) 01/07/18 16:05 Urine Ketones Negative mg/dL (NEGATIVE) 01/07/18 16:05 Urine Blood Negative (NEGATIVE) 01/07/18 16:05 Urine Nitrate Negative (NEGATIVE) 01/07/18 16:05 Urine Bilirubin Negative (NEGATIVE) 01/07/18 16:05 Urine Urobilinogen Normal mg/dL (0.2-1.0) 01/07/18 16:05 Ur Leukocyte Esterase Neg Shankar/uL (Negative) 01/07/18 16:05 Urine WBC (Auto) < 1 /hpf (0-5) 01/07/18 16:05 Urine RBC (Auto) < 1 /hpf (0-3) 01/07/18 16:05 Ur Squamous Epith Cells < 1 /hpf (0-5) 01/07/18 16:05 Urine Bacteria Rare (<OCC) 01/07/18 16:05 Hyaline Casts 3-5 /lpf (0-2) H 01/07/18 16:05 Attending/Attestation - Attestation I have personally seen and examined this patient.: Yes I have fully participated in the care of the patient.: Yes I have reviewed all pertinent clinical information, including history, physical exam and plan: Yes Notes (Text): 01/20/18 12:52 Patient was seen 4:45 PM 01/19/18 and exam, assessment and plan, and discharge instructions were gone over with the resident. Discharge was delayed as Meat Slicer and Lavinia and Reliability Technician Carlos Enrique did not hear back from [facility]. However, today, 01/20/18 they have heard back from [facility] and patient will be transferred there. Reliability Technician Alanna informs me that patient's specialized shoes will be delivered to [facility]. Patient was not examined today 01/20/18. Chase Young D.O.
[2018-01-20] MEDS: Multiple Vitamins Tab PO SCH (10:38)
[2018-01-20] MEDS: Pantoprazole 40 mg EC Tab PO SCH (10:39)
[2018-01-20] MEDS ORDERED: Pneumococcal 23-Valent Vaccine IM ONE (12:52)
[2018-01-20] MEDS: Metoprolol Succinate 12.5 mg XL Tab PO SCH (13:19)
[2018-01-20 15:54] VITALS: BP 93/53; PULSE 70; TEMP 97.5; O2SAT 100
== END 2018-01-20 22:00 | DRG 641 ==
LOC: C.ER 11:06 → C.9E 13:56 → C.3T 16:43
PROVIDERS: ADMIT Family Medicine; ATTEND Family Medicine
PROC: 0HBRXZZ Excision of Toe Nail, External Approach (ICD-10-PCS; principal; 2018-01-16)
PROC: 0HBRXZZ Excision of Toe Nail, External Approach (ICD-10-PCS; 2018-01-16)
PROC: 0HBRXZZ Excision of Toe Nail, External Approach (ICD-10-PCS; 2018-01-16)
PROC: 0HBRXZZ Excision of Toe Nail, External Approach (ICD-10-PCS; 2018-01-16)
PROC: 0HBRXZZ Excision of Toe Nail, External Approach (ICD-10-PCS; 2018-01-16)
PROC: 0HBRXZZ Excision of Toe Nail, External Approach (ICD-10-PCS; 2018-01-16)
PROC: 0HBRXZZ Excision of Toe Nail, External Approach (ICD-10-PCS; 2018-01-16)
PROC: 0HBRXZZ Excision of Toe Nail, External Approach (ICD-10-PCS; 2018-01-16)
PROC: 0HBRXZZ Excision of Toe Nail, External Approach (ICD-10-PCS; 2018-01-16)
PROC: 0HBRXZZ Excision of Toe Nail, External Approach (ICD-10-PCS; 2018-01-16)
DX: R62.7 Adult failure to thrive (principal); F02.81 Dementia in other diseases classified elsewhere, unspecified severity, with behavioral disturbance; F05 Delirium due to known physiological condition; B35.1 Tinea unguium; E78.00 Pure hypercholesterolemia, unspecified; E86.0 Dehydration; G30.9 Alzheimer's disease, unspecified; M20.11 Hallux valgus (acquired), right foot; I48.91 Unspecified atrial fibrillation; M20.12 Hallux valgus (acquired), left foot; F32.9 Major depressive disorder, single episode, unspecified; Z86.73 Personal history of transient ischemic attack (TIA), and cerebral infarction without residual deficits; Z91.14 Patient's other noncompliance with medication regimen; F41.9 Anxiety disorder, unspecified; M21.70 Unequal limb length (acquired), unspecified site; R26.81 Unsteadiness on feet; Z51.5 Encounter for palliative care; B35.6 Tinea cruris; Z86.718 Personal history of other venous thrombosis and embolism; I11.0 Hypertensive heart disease with heart failure; I50.9 Heart failure, unspecified; E11.40 Type 2 diabetes mellitus with diabetic neuropathy, unspecified; Z79.4 Long term (current) use of insulin; E55.9 Vitamin D deficiency, unspecified